=== PATIENT | male | born 1995 | race Caucasian/White ===

== ENCOUNTER 2019-02-27 04:17 | Inpatient (IN) | payer OTHER ==
[~2019-02-27] VITALS: Ht 175.3 cm; Wt 62.6 kg
[2019-02-27] VITALS (19 sets, daily range): BP systolic 103–132; BP diastolic 50–70
--- NOTE | 2019-02-27 06:00 | NUR ---
Patient admitted on vent from [facility]. Pt is sedated on Propofol and Versed. Gets agitated with sedation even temporarily held. ETT and OGT placement changed from report given by [facility] ED RN. KUB and CXR ordered to verify placement.
--- NOTE | 2019-02-27 06:15 | NUR ---
Pt has a red diffuse rash on chest which says has gotten worse over last couple of days. Patient was bitten by a deer tick about 1 month ago and was red and itched in right axilla. She states patient has lost approximately 15 pounds in the last 3-4 weeks.
--- NOTE | 2019-02-27 06:59 | RAD ---
Chest AP portable at 0633: Reason for examination: Endotracheal tube placement. Endotracheal tube is present with the tip located 5.4 cm above the jeremias. NG tube is present with the tip below the hemidiaphragms but not present on the imaged. The heart size is normal. Mediastinum is unremarkable. Lung pelaez are clear. No acute bony abnormalities are seen. Impression: Endotracheal tube and NG tube appear to be in satisfactory position. No acute cardiopulmonary disease. Abdomen AP portable: NG tube is present with the tip below the hemidiaphragms but the side-port is at the level of the esophagogastric junction. The liver appears to be enlarged at 21 cm. Psoas muscles are symmetric. Bowel gas pattern is nonspecific with no evidence of obstruction. No abnormal calcifications are seen. No acute bony abnormalities are evident. IMPRESSION: NG tube tip in the stomach but the side port is at the level of the EG junction and should be advanced into the stomach. Nonspecific nonobstructive bowel gas pattern. Hepatomegaly. Electronically signed by: Phyllis Arreola MD (02/27/2019 6:56 AM) [facility]
--- NOTE | 2019-02-27 07:15 | NUR ---
Talked with Dr. Hassan. Admission orders received. Family at bedside now.
[2019-02-27] MEDS ORDERED: PROPOFOL 100 ML IV ONE (07:28)
[2019-02-27] MEDS ORDERED: NOREPINEPHRIN 8MG/250ML PREMIX 250 ML IV PRN (07:30)
[2019-02-27] MEDS: IV NORMAL SALINE 1000ML BAG 1,000 ML IV SCH ×3 (08:00→09:36)
[2019-02-27] MEDS ORDERED: PIPERACILLIN/TAZOBACTAM 3.375 GM in IV NORMAL SALINE 50ML 50 ML IV SCH (08:00)
--- NOTE | 2019-02-27 08:11 | NUR ---
SS following for discharge planning. SS reviewed pt chart. Pt is from home and is currently on the vent. No discharge needs noted at this time. SS will continue to follow for discharge planning.
--- NOTE | 2019-02-27 08:14 | PDOC1 ---
History and Physical Date of Admission Date of Admission DATE: 02/27/19 TIME: 08:12 Identification/Chief Complaint Chief Complaint Acute encephalopathy Source Source: Caregiver, Chart review, Patient History of Present Illness History of Present Illness Mr Hodgson is a 23yo M w/ PMHx opioid dependence in partial remission on suboxone therapy, Hepatitis C who presented to [place] emergency department with acute altered mental status. According to the patient's girlfriend and her father, or the primary historians, the patient has been complaining of some dental pain on and off for the past several weeks. He finally went to see a physician on Saturday and was prescribed Augmentin. He began taking the medicine, but he had increasing episodes of vomiting over the past few days, had been complaining of a headache on and off, and had some periods of confusion and altered mental status which became more frequent and intense over the past few days. His girlfriend on further ROS notes he did not take his suboxone yesterday morning and around 5pm started acting strangely when he disappeared with his brother and came back while shopping for children's clothes. The patient did have an increasing episode of confusion earlier this evening at 10pm and had a brief period of time when his left hand seemed to go numb, and developed some spasming. He went home and went to bed with his girlfriend, and his girlfriend states that he awakened around 2am he awoke with seizure like activity, was banging on the bed and calling her name and appeared very altered with nystagmus of his right eye only. EMS was called and transported the patient to the emergency department. Upon arrival he was combative and disoriented, he has pulled out in EMS placed IV, and an initial IV placed in the emergency department was also pulled out by the patient's combativeness. He required rapid sequence intubation with succinylcholine and etomidate upon arrival just facilitate care after IV access was able to be obtained. There was some blood noted around the patient's mouth, and in the oropharynx, of unknown source, there was no clear source visualized. There was also a scattered petechial rash on the patient's chest and upper neck, the patient's girlfriend states it has been there for about 2 weeks. He did not have any meningismus upon arrival but felt warm to the touch. Rectal temperature was 100.8F, WBC 14.2, lactate 4.9, tachycardic. He underwent LP after intubation with CSF WBCs 315 with 82% Monocytes ABG was 7.33/51/125 and UDS was positive for opioids and benzos, family states he is on suboxone, however, buprenorphine specifically does not test positive for opioids on standard UDS. Past Medical History Cardiovascular: No pertinent hx Pulmonary: No pertinent hx GI: No pertinent hx Heme/Onc: No pertinent hx Hepatobiliary: No pertinent hx Psych: Addictions Rheumatologic: No pertinent hx Infectious disease: No pertinent hx ENT: No pertinent hx Renal/: No pertinent hx Endocrine: No pertinent hx Dermatology: No pertinent hx Past Surgical History Past Surgical History: No pertinent history Family History Family History: Coronary Artery Disease, Drug Abuse, Hypertension Social History Smoke: <1 pack per day ALCOHOL: rare Drugs: Marijuana, Heroin Current Medications Current Medications Current Medications Propofol 100 ml @ As Directed STK-MED ONCE IV ; Start 02/27/19 at 07:28; Stop 02/27/19 at 07:29; Status DC Midazolam HCl 100 ml @ 5 mls/hr CONT PRN IV SEE I/O RECORD; Start 02/27/19 at 07:30 Propofol 100 ml @ 0 mls/hr CONT PRN IV SEE I/O RECORD; Start 02/27/19 at 07:30 Doxycycline Hyclate 100 mg/ Dextrose 100 ml @ 50 mls/hr Q12HR IV ; Start 02/27/19 at 09:00 Piperacillin Sod/ Tazobactam Sod 3.375 gm/Sodium Chloride 50 ml @ 100 mls/hr Q6HRS IV ; Start 02/27/19 at 08:00 Sodium Chloride 1,000 ml @ 2,130 mls/hr Q29M IV Last administered on 02/27/19at 08:00; Start 02/27/19 at 07:24; Stop 02/27/19 at 08:24 Norepinephrine Bitartrate 250 ml @ 0 mls/hr CONT PRN IV SEE I/O RECORD; Start 02/27/19 at 07:30 Allergies Allergies: Coded Allergies: No Known Drug Allergies (Unverified , 02/27/19) ROS Review of System Unable to obtain 11 point ROS due to intubated status Physical Exam General: Other (Sedated on vent) HEENT: Atraumatic, PERRLA, Mucous membr. moist/pink Lungs: Other (Coarse rhonchi bilaterally) Heart: S1S2, RRR Abdomen: Normal bowel sounds, Soft, No tenderness, No hepatosplenomegaly, No masses Rectal Exam: not examined Extremities: No clubbing, No cyanosis, No edema, Normal pulses, No tenderness/swelling Skin: Other (Diffuse petechial rash on chest, multiple scars on both arms) Psych/Mental Status: Other (Sedated) Vitals Vitals Vital Signs Date Time Temp Pulse Resp B/P (MAP) Pulse Ox O2 Delivery O2 Flow Rate FiO2 02/27/19 07:55 100 Ventilator 02/27/19 06:45 65 14 125/60 (81) 02/27/19 06:00 99.6 99.6 Labs Labs Laboratory Tests Test 02/27/19 07:30 Lactic Acid Level 1.1 mmol/L (0.4-2.0) Laboratory Tests Test 02/27/19 07:30 Lactic Acid Level 1.1 mmol/L (0.4-2.0) VTE Prophylaxis Ordered VTE Prophylaxis Devices: No VTE Pharmacological Prophylaxi: Yes Assessment/Plan Assessment/Plan A/P: Acute encephalopathy - multifactorial with sepsis, WBC in CSF (monocyte predominant), hypercapnea Hypercapnic respiratory failure - s/p intubation. Will consult pulmonology. Likely this was multifactorial from opioid OD Severe sepsis - with concern for meningitis, will cover broadly and consult ID. F/u blood cultures, LP Opioid use disorder - in partial remission. Unlikely he was actually taking his suboxone yesterday as his opioids were positive Hep C - likely from IVDA. unknown viral titer. ID consulted Lactic acidosis - from severe sepsis. Hydration Hypokalemia - will replace, monitor Hyperglycemia - likely from sepsis, no DM history, will monitor Petechial rash - could be secondary to sepsis or 2/2 Hep C FEN - NPO, can consider OGT feeds PPX - will start lovenox 24 hours after LP FULL CODE ICU for critically ill septic patient 49 minutes CC time DUNG RUSSELL MD Feb 27, 2019 08:14
[2019-02-27 08:18] LABS: BASE EXCESS ABG -3 mmol/L (-3-3); HCO3 ABG 21 mmol/L (21-28); PCO2 ABG 36 mmHg (35-46); PO2 ABG 155 mmHg (85-108); SAT O2 ABG 98 % (92-99)
[2019-02-27 08:22] LABS: FIO2 ABG 40
[2019-02-27] MEDS ORDERED: VANCOMYCIN 1.5 GM in IV NORMAL SALINE 500ML BAG 500 ML IV SCH (08:30)
--- NOTE | 2019-02-27 08:38 | RAD ---
Portable abdomen, 02/27/2019: HISTORY: Check gastric tube placement A supine view of the upper abdomen demonstrates an NG tube extending into the proximal aspect of the stomach. The abdominal gas pattern is unremarkable. The visualized lung bases are clear. IMPRESSION: The NG tube extends into the proximal body of the stomach. Electronically signed by: Farrukh Juarez MD (02/27/2019 8:36 AM) [facility]
[2019-02-27] MEDS ORDERED: DOXYCYCLINE HYCLATE 100 MG in IV DEXTROSE 5% 100ML 100 ML IV SCH (09:00)
[2019-02-27] MEDS ORDERED: cefTRIAXone IV Push 2 GM VIAL. IVP SCH ×2 (09:00→21:00)
[2019-02-27] MEDS ORDERED: cefTRIAXone IV Push 1 GM VIAL. IVP ONE (09:00)
[2019-02-27] MEDS ORDERED: VANCOMYCIN 750 MG in IV NORMAL SALINE 250ML 250 ML IV ONE (09:30)
--- NOTE | 2019-02-27 09:34 | PDOC ---
PULMONARY PROGRESS NOTES Vitals Vital Signs Date Time Temp Pulse Resp B/P (MAP) Pulse Ox O2 Delivery O2 Flow Rate FiO2 02/27/19 09:16 100 Ventilator 02/27/19 06:45 65 14 125/60 (81) 02/27/19 06:00 99.6 99.6 Labs Laboratory Tests Test 02/27/19 07:30 02/27/19 08:10 Lactic Acid Level 1.1 mmol/L (0.4-2.0) Procalcitonin < 0.10 ng/mL (0.00-0.10) O2 Saturation 98 % (92-99) Arterial Blood pH 7.39 (7.35-7.45) Arterial Blood pCO2 at Patient Temp 36 mmHg (35-46) Arterial Blood pO2 at Patient Temp 155 mmHg (85-108) Arterial Blood HCO3 21 mmol/L (21-28) Arterial Blood Base Excess -3 mmol/L (-3-3) FiO2 40 Laboratory Tests Test 02/27/19 07:30 02/27/19 08:10 Lactic Acid Level 1.1 mmol/L (0.4-2.0) Procalcitonin < 0.10 ng/mL (0.00-0.10) O2 Saturation 98 % (92-99) Arterial Blood pH 7.39 (7.35-7.45) Arterial Blood pCO2 at Patient Temp 36 mmHg (35-46) Arterial Blood pO2 at Patient Temp 155 mmHg (85-108) Arterial Blood HCO3 21 mmol/L (21-28) Arterial Blood Base Excess -3 mmol/L (-3-3) FiO2 40 Impression . FULL NOTE DICTATED THANKS RESP FAILURE ENCEPHALITIS/ MENINGITIS VIRAL ROXANN LUBIN MD Feb 27, 2019 09:34
--- NOTE | 2019-02-27 09:42 | PDOC ---
Infectious Disease Note Vital Sign Vital Signs Vital Signs Date Time Temp Pulse Resp B/P (MAP) Pulse Ox O2 Delivery O2 Flow Rate FiO2 02/27/19 09:16 100 Ventilator 02/27/19 06:45 65 14 125/60 (81) 02/27/19 06:00 99.6 99.6 Labs Lab Laboratory Tests Test 02/27/19 07:30 02/27/19 08:10 Lactic Acid Level 1.1 mmol/L (0.4-2.0) Procalcitonin < 0.10 ng/mL (0.00-0.10) O2 Saturation 98 % (92-99) Arterial Blood pH 7.39 (7.35-7.45) Arterial Blood pCO2 at Patient Temp 36 mmHg (35-46) Arterial Blood pO2 at Patient Temp 155 mmHg (85-108) Arterial Blood HCO3 21 mmol/L (21-28) Arterial Blood Base Excess -3 mmol/L (-3-3) FiO2 40 Objective Assessment Aseptic meningitis Encephalopathy Seizure Respiratory failure Rash Drug use Plan Plan of Care Acyclovir supportive care HSV PCR Likely need MRI d/w d/w Dr Bacon d/w PATRICK Dumont MD Feb 27, 2019 09:41
[2019-02-27 09:43] LABS: BASO % 0 % (0-3); EOS % 0 % (0-3); HEMATOCRIT 35.6 % (39.0-53.0); LYMPH # 2.4 x10^3/uL (1.0-4.8); LYMPH % 19 % (24-48); MEAN CORPUSCULAR HEMOGLOBIN 30 pg (25-35); MEAN CORPUSCULAR HGB CONC 34 g/dL (31-37); MEAN CORPUSCULAR VOLUME 87 fL (79-100); MONO # 1.3 x10^3/uL (0.0-1.1); MONO % 11 % (0-9); NEUT # 8.7 x10^3uL (1.8-7.7); NEUT % 70 % (31-73); PLATELET COUNT 240 x10^3/uL (140-400); RED BLOOD COUNT 4.08 x10^6/uL (4.30-5.70); RED CELL DISTRIBUTION WIDTH 13.5 % (11.5-14.5); WHITE BLOOD COUNT 12.4 x10^3/uL (4.0-11.0)
[2019-02-27 10:04] LABS: ALBUMIN 2.9 g/dL (3.4-5.0); CALCIUM 8.1 mg/dL (8.5-10.1); CREATININE 0.7 mg/dL (0.7-1.3); GFR 138.6; POTASSIUM 3.6 mmol/L (3.5-5.1); TOTAL BILIRUBIN 0.4 mg/dL (0.2-1.0); TOTAL PROTEIN 5.9 g/dL (6.4-8.2)
[2019-02-27] MEDS: VANCOMYCIN PER PHARMACY MC PRN (10:20)
--- NOTE | 2019-02-27 10:21 | NUR ---
Pharmacy Vancomycin Dosing Note S:Consulted to monitor and dose vancomycin started 02/27/19. O:BERE ABEL is a 23 year old M with meningitis. Height: 5 feet, 9 inches Weight: 64.9 kg Dosing Weight: Actual Other Antibiotics: ROCEPHIN 2G IV Q12HRS ACYCLOVIR 10 MG/KG Q8HRS LABS: Last BUN: 9 Last Creatinine: 0.7 Creatinine Clearance: > 100 mL/min Last WBC: 12.4 Tmax (past 24 hours): 99.6 Microbiology: BLOOD CX (02/27) [facility]: PENDING CSF CX (02/27) [facility]: PENDING A: Patient requires vancomycin for possible meningitis, goal trough 15-20 mcg/ml. Patient's SCr is 0.7 with an eCrCl of > 100 ml/min. Initiate the following: P: 1. Initiate Vancomycin 1750 mg IV x 1 dose, then 1000 mg IV q8h 2. Follow up Trough level on 02/28/19 at 0830 3. Pharmacy will continue to monitor, follow and adjust therapy as needed. ZACHARY MORRIS [facility], 02/27/19 1025
[2019-02-27] MEDS ORDERED: ONDANSETRON PF 4 MG/2 ML VIAL. IV PRN (11:00)
[2019-02-27] MEDS: ACYCLOVIR SODIUM IV SCH ×3 (11:22→21:17)
[2019-02-27] MEDS: DEXTROSE 5% IV SCH ×3 (11:22→21:17)
[2019-02-27] MEDS: AMINO AC 3%/ELECTROLYTE/GLYCER 1,000 ML IV SCH (12:55)
[2019-02-27] MEDS: PROPOFOL 100 ML IV PRN ×3 (12:59→21:29)
[2019-02-27] MEDS ORDERED: LANSOPRAZOLE 30 MG TAB.RAP.DR FT ONE (13:45)
--- NOTE | 2019-02-27 14:18 | NUR ---
Patient having hemoptysis from OG tube. Dr Bacon paged and received orders to give 1x dose of Prevacid. Will continue to monitor.
[2019-02-27] MEDS ORDERED: ACETAMINOPHEN 500 MG TABLET PO PRN (15:45)
[2019-02-27] MEDS: VANCOMYCIN 1 GM in IV NORMAL SALINE 250ML 250 ML IV SCH (16:47)
[2019-02-27] MEDS: MIDAZOLAM 100mg/100ml NS BAG 100 ML IV PRN (16:49)
--- NOTE | 2019-02-27 19:04 | CONS ---
DATE OF CONSULTATION: 02/27/2019 ATTENDING PHYSICIAN: Dr. Bacon. REASON FOR CONSULTATION: The patient seen in pulmonary consultation at the request of Dr. Bacon for vent management. HISTORY OF PRESENT ILLNESS: The patient is a 23-year-old male with a history of opiate dependent. He was currently being treated with Suboxone therapy, also has a history of hepatitis C. He presented to the Emergency Room at [facility] with altered mental status. He was eventually intubated and transferred to [facility]. The patient has a history of previous hep C. He has had a rash over his chest for quite some time. He actually underwent an LP at [facility] after intubation. Initially, he had a temperature of 100.8, his white count was 14,000. His CSF fluid revealed wbc of 315 with 82% neutrophils, actually PMC. He had an initial blood gas revealing a pH of 7.33, PaCO2 of 51, pO2 of 125. His urine drug screen was positive for opiates and benzos. He is currently sedated on mechanical ventilation. His latest arterial blood gas revealed a pH of 7.39, PaCO2 of 36, pO2 of 155. I reviewed his chest x-ray, which revealed proper position of endotracheal tube and there was no significant consolidation or infiltrates, both lung pelaez were clear. PAST MEDICAL HISTORY: Obtained by reviewing the current documentation. He has a history of hepatitis C, opiate dependent on Suboxone therapy. Otherwise, there are no family members at the bedside. There is no history of cardiovascular pathology. He does have a history of previous COPD. He has had some nausea and vomiting in the past. PAST SURGICAL HISTORY: He has had left arm fracture as a young child. PSYCHIATRIC HISTORY: He does have some psychological disorders including panic, depression and anxiety. REVIEW OF SYSTEMS: Unobtainable secondary to the patient's condition. SOCIAL HISTORY: The patient apparently smokes cigarettes. CURRENT MEDICATIONS: List was reviewed. ALLERGIES: No known drug allergies listed. PHYSICAL EXAMINATION: GENERAL: The patient was intubated. VITAL SIGNS: His T-max was 99.6. Hemodynamically, he has been stable. HEENT: Eyes, the sclerae were nonicteric. NECK: Jugular venous distention was not elevated. No lymphadenopathy. CHEST: Full expansion. Evidence of petechiae all over his chest and most of his body. LUNGS: Anteriorly were clear. CARDIOVASCULAR: Regular rate and rhythm with S1, S2, no S3. ABDOMEN: Soft, nontender, nondistended. EXTREMITIES: No clubbing, cyanosis or edema. NEUROLOGIC: The patient is sedated. LABORATORY DATA: Reviewed as indicated above. Lactic acid repeat was 1.1. Procalcitonin was less than 0.1. LP results as indicated above. Chest x-ray as indicated above. IMPRESSION: 1. Acute hypoxemic respiratory failure, multifactorial. 2. Opiate dependent, presents with toxic metabolic encephalopathy. 3. Toxic metabolic encephalopathy. 4. Positive lumbar puncture compatible with viral meningitis/encephalitis, Infectious Disease consulted. 5. History of depression and anxiety. 6. Chronic obstructive pulmonary disease. 7. Tobacco dependence. PLAN: 1. We will continue current support with assist control ventilation. Continue current minute ventilation. 2. Antibiotics per Infectious Disease service. 3. Initiate nutritional support per NG tube. 4. DVT and GI prophylaxis. 5. Follow other consultants' input. I do appreciate the privilege in sharing in the patient's care. Total cumulative critical care time of 40 minutes. ROXANN LUBIN MD DR: HOWIE/jory JOB#: [id number] / [id number]
[2019-02-27] MEDS: FAMOTIDINE 20 MG/2 ML VIAL IVP SCH (21:16)
[2019-02-27] MEDS: cefTRIAXone IV Push 2 GM VIAL. IVP SCH (21:17)
[2019-02-28] VITALS (24 sets, daily range): BP systolic 112–135; BP diastolic 49–73
[2019-02-28] MEDS: VANCOMYCIN 1 GM in IV NORMAL SALINE 250ML 250 ML IV SCH ×2 (00:42→09:00)
[2019-02-28] MEDS: AMINO AC 3%/ELECTROLYTE/GLYCER 1,000 ML IV SCH ×2 (01:21→12:00)
[2019-02-28] MEDS: PROPOFOL 100 ML IV PRN ×3 (03:30→19:34)
--- NOTE | 2019-02-28 05:40 | CONS ---
DATE OF CONSULTATION: 02/27/2019 REQUESTING PHYSICIAN: Dr. Bacon. REASON FOR CONSULTATION: Abnormal CSF. HISTORY OF PRESENT ILLNESS: This is a 23-year-old gentleman who has IV drug use problem. The patient is in partial remission. The patient is on Suboxone therapy and evidently he skipped a dose and used drug ____. The patient was then found unresponsive and having seizure, hence [facility] was called and the patient was taken to the [facility] and then from there to here. Currently, the patient is orally intubated on a ventilator. Information was obtained through chart review, discussing with the patient's or significant other and other doctors. According to the girlfriend or significant other, the patient has been sick for about 2 weeks or so, initially started with headache, some nausea, not feeling well. The patient also then had a toothache, so he was seen by provider and the patient was prescribed Augmentin. The patient is taking ibuprofen for the pain and in fact he broke out an rash in upper torso and the face before the Augmentin and he was given some medication for the rash that he does not remember the name. The patient had skipped a dose of Suboxone and went out with the brother and then he came back and he was acting weird. According to the girlfriend, he is not able to even recognize or say the name of their son and then at times, he was behaving normal with the girlfriend's father and in fact before then, he had vomited blood and subsequently then he started having seizure and became unresponsive. The patient was taken to the [facility] ER where he had a CAT scan of the head done, which was negative and had an LP done, which showed 318 WBC, 62 glucose, 164 protein and 50 RBC. The patient did have lactic acid of 4.9, which quickly cleared. The patient did have fever. The patient has received vancomycin, Rocephin and doxycycline and now consult has been requested. According to the girlfriend, there is no outdoor activity. The patient is a welder metal fab and as far as she knows that he is off the drugs, heroin that he used to do for a while. PAST MEDICAL HISTORY: Other than drug use, he had been healthy. SOCIAL HISTORY: Positive for IV drug use, heroin at least in the past, but never had seizure in the past. He does smoke, but does not use alcohol. ALLERGIES: No known drug allergies. CURRENT MEDICATIONS: Reviewed. REVIEW OF SYSTEMS: As per HPI through the girlfriend and the nurse. The patient is not able to provide any information. There is no nausea, vomiting, diarrhea noted here. PHYSICAL EXAMINATION: GENERAL: Orally intubated, sedated gentleman, not in distress. VITAL SIGNS: Temperature 99.6, pulse 65, respirations 14, blood pressure 125/60. HEENT: Both pupils are round and reacting. No conjunctival lesion. Mouth: Much cannot be visualized. NECK: Supple, no JVP, no lymphadenopathy. LUNGS: Clear. HEART: S1, S2 regular. ABDOMEN: Benign. EXTREMITIES: No edema or cyanosis. SKIN: The patient does have a nonblanching fine rash on the upper torso and face. NEUROLOGIC: The patient does move all the extremities, although currently sedated on a ventilator. LABORATORY DATA: His BUN and creatinine were normal. White count was high at [facility]. Lactic acid was 4.9 and the CSF as I mentioned in the HPI. IMPRESSION: 1. 1. Aseptic meningitis. This could be from even as simple as from ibuprofen, but this could be viral meningitis like enterovirus. Definitely, herpes needs to be ruled out with his change in mental status. 2. 2. New onset seizure secondary to drug withdrawal or use of drugs, on Suboxone, it is hard to say. 3. 3. History of IV drug use. 4. 4. Encephalopathy. 5. 5. Lactic acid is secondary to the seizure, less likely to be septic. 6. Rash. This rash could be a drug rash, but more so even parvo B19 is a distant possibility. RECOMMENDATIONS: 1. 1. Supportive care. 2. 2. IV acyclovir. 3. 3. HSV PCR in the CSF. I called the lab for them to add it. Continue Rocephin and vancomycin for maybe another day or two until we have more information and the patient stabilizes. The patient is going to likely need MRI of the head. Discussion with Dr. Bacon done. Discussion with Dr. Villaseñor done. Thank you very much, Dr. Bacon, for giving me the opportunity to participate in this patient's care. PATRICK WALKER MD DR: MAURIZIO/jory JOB#: [id number] / [id number]
[2019-02-28] MEDS: ACYCLOVIR SODIUM IV SCH (06:00)
[2019-02-28] MEDS: DEXTROSE 5% IV SCH (06:00)
--- NOTE | 2019-02-28 06:20 | PDOC ---
PULMONARY PROGRESS NOTES Subjective on vent, sedated, on propofol, versed, small ett Vitals Vital Signs Date Time Temp Pulse Resp B/P (MAP) Pulse Ox O2 Delivery O2 Flow Rate FiO2 02/28/19 06:00 53 14 122/60 (80) 97 Ventilator 02/28/19 04:00 98.9 98.9 Comments ros as mentioned as above discussed w rn, other sys otherwise neg sedated on vent HEENT: Other (nc at perrl nose clear orally intubated neck no lad no thyromegaly) Lungs: Crackles Cardiovascular: S1, S2 Abdomen: Soft, Non-tender, Other (no mass) Extremities: No Edema Skin: Warm Labs Laboratory Tests Test 02/27/19 05:00 02/27/19 07:30 02/27/19 08:10 Nasal Screen MRSA (PCR) Negative (Negative) White Blood Count 12.4 x10^3/uL (4.0-11.0) Red Blood Count 4.08 x10^6/uL (4.30-5.70) Hemoglobin 12.0 g/dL (13.0-17.5) Hematocrit 35.6 % (39.0-53.0) Mean Corpuscular Volume 87 fL (79-100) Mean Corpuscular Hemoglobin 30 pg (25-35) Mean Corpuscular Hemoglobin Concent 34 g/dL (31-37) Red Cell Distribution Width 13.5 % (11.5-14.5) Platelet Count 240 x10^3/uL (140-400) Neutrophils (%) (Auto) 70 % (31-73) Lymphocytes (%) (Auto) 19 % (24-48) Monocytes (%) (Auto) 11 % (0-9) Eosinophils (%) (Auto) 0 % (0-3) Basophils (%) (Auto) 0 % (0-3) Neutrophils # (Auto) 8.7 x10^3uL (1.8-7.7) Lymphocytes # (Auto) 2.4 x10^3/uL (1.0-4.8) Monocytes # (Auto) 1.3 x10^3/uL (0.0-1.1) Eosinophils # (Auto) 0.0 x10^3/uL (0.0-0.7) Basophils # (Auto) 0.0 x10^3/uL (0.0-0.2) Sodium Level 141 mmol/L (136-145) Potassium Level 3.6 mmol/L (3.5-5.1) Chloride Level 106 mmol/L (98-107) Carbon Dioxide Level 24 mmol/L (21-32) Anion Gap 11 (6-14) Blood Urea Nitrogen 9 mg/dL (8-26) Creatinine 0.7 mg/dL (0.7-1.3) Estimated GFR (Cockcroft-Gault) 138.6 BUN/Creatinine Ratio 13 (6-20) Glucose Level 103 mg/dL (70-99) Lactic Acid Level 1.1 mmol/L (0.4-2.0) Calcium Level 8.1 mg/dL (8.5-10.1) Total Bilirubin 0.4 mg/dL (0.2-1.0) Aspartate Amino Transf (AST/SGOT) 26 U/L (15-37) Alanine Aminotransferase (ALT/SGPT) 21 U/L (16-63) Alkaline Phosphatase 63 U/L (46-116) Total Protein 5.9 g/dL (6.4-8.2) Albumin 2.9 g/dL (3.4-5.0) Albumin/Globulin Ratio 1.0 (1.0-1.7) Procalcitonin < 0.10 ng/mL (0.00-0.10) O2 Saturation 98 % (92-99) Arterial Blood pH 7.39 (7.35-7.45) Arterial Blood pCO2 at Patient Temp 36 mmHg (35-46) Arterial Blood pO2 at Patient Temp 155 mmHg (85-108) Arterial Blood HCO3 21 mmol/L (21-28) Arterial Blood Base Excess -3 mmol/L (-3-3) FiO2 40 Laboratory Tests Test 02/27/19 07:30 02/27/19 08:10 White Blood Count 12.4 x10^3/uL (4.0-11.0) Red Blood Count 4.08 x10^6/uL (4.30-5.70) Hemoglobin 12.0 g/dL (13.0-17.5) Hematocrit 35.6 % (39.0-53.0) Mean Corpuscular Volume 87 fL (79-100) Mean Corpuscular Hemoglobin 30 pg (25-35) Mean Corpuscular Hemoglobin Concent 34 g/dL (31-37) Red Cell Distribution Width 13.5 % (11.5-14.5) Platelet Count 240 x10^3/uL (140-400) Neutrophils (%) (Auto) 70 % (31-73) Lymphocytes (%) (Auto) 19 % (24-48) Monocytes (%) (Auto) 11 % (0-9) Eosinophils (%) (Auto) 0 % (0-3) Basophils (%) (Auto) 0 % (0-3) Neutrophils # (Auto) 8.7 x10^3uL (1.8-7.7) Lymphocytes # (Auto) 2.4 x10^3/uL (1.0-4.8) Monocytes # (Auto) 1.3 x10^3/uL (0.0-1.1) Eosinophils # (Auto) 0.0 x10^3/uL (0.0-0.7) Basophils # (Auto) 0.0 x10^3/uL (0.0-0.2) Sodium Level 141 mmol/L (136-145) Potassium Level 3.6 mmol/L (3.5-5.1) Chloride Level 106 mmol/L (98-107) Carbon Dioxide Level 24 mmol/L (21-32) Anion Gap 11 (6-14) Blood Urea Nitrogen 9 mg/dL (8-26) Creatinine 0.7 mg/dL (0.7-1.3) Estimated GFR (Cockcroft-Gault) 138.6 BUN/Creatinine Ratio 13 (6-20) Glucose Level 103 mg/dL (70-99) Lactic Acid Level 1.1 mmol/L (0.4-2.0) Calcium Level 8.1 mg/dL (8.5-10.1) Total Bilirubin 0.4 mg/dL (0.2-1.0) Aspartate Amino Transf (AST/SGOT) 26 U/L (15-37) Alanine Aminotransferase (ALT/SGPT) 21 U/L (16-63) Alkaline Phosphatase 63 U/L (46-116) Total Protein 5.9 g/dL (6.4-8.2) Albumin 2.9 g/dL (3.4-5.0) Albumin/Globulin Ratio 1.0 (1.0-1.7) Procalcitonin < 0.10 ng/mL (0.00-0.10) O2 Saturation 98 % (92-99) Arterial Blood pH 7.39 (7.35-7.45) Arterial Blood pCO2 at Patient Temp 36 mmHg (35-46) Arterial Blood pO2 at Patient Temp 155 mmHg (85-108) Arterial Blood HCO3 21 mmol/L (21-28) Arterial Blood Base Excess -3 mmol/L (-3-3) FiO2 40 Comments cxr reviewed, ett ok, mild l atelectasis Impression . IMPRESSION: 1. Acute hypoxemic respiratory failure, multifactorial. 2. Opiate dependent, presents with toxic metabolic encephalopathy. 3. Toxic metabolic encephalopathy. 4. Positive lumbar puncture compatible with aseptic,? viral meningitis/encephalitis, 5. History of depression and anxiety. 6. Chronic obstructive pulmonary disease. 7. Tobacco dependence. Plan . PLAN: 1. cont vent support, setting reviewed, sbt when alert 2. Antibiotics per Infectious Disease service. Vanc, Rocephin and Acyclovir HSV PCR pending 3. Initiate nutritional support per NG tube. 4. DVT and GI prophylaxis. 5. Follow other consultants' input. discussed w RAFI Roy MD Feb 28, 2019 06:20
[2019-02-28 07:55] LABS: BASE EXCESS ABG 2 mmol/L (-3-3); HCO3 ABG 26 mmol/L (21-28); PCO2 ABG 39 mmHg (35-46); PO2 ABG 63 mmHg (85-108); SAT O2 ABG 93 % (92-99)
[2019-02-28 08:13] LABS: FIO2 ABG 40
[2019-02-28] MEDS ORDERED: IV NORMAL SALINE 500ML BAG 500 ML IV PRN (08:30)
[2019-02-28] MEDS ORDERED: ATROPINE 0.5 MG/5 ML DISP.SYRINGE. IV PRN (08:30)
[2019-02-28] MEDS ORDERED: DEXMEDETOMIDINE 200 MCG in IV NORMAL SALINE 50ML 48 ML IV PRN (08:30)
[2019-02-28 08:55] LABS: BASO # 0.1 x10^3/uL (0.0-0.2); BASO % 1 % (0-3); EOS % 0 % (0-3); HEMATOCRIT 37.9 % (39.0-53.0); HEMOGLOBIN 13.1 g/dL (13.0-17.5); LYMPH # 1.7 x10^3/uL (1.0-4.8); LYMPH % 19 % (24-48); MEAN CORPUSCULAR HEMOGLOBIN 30 pg (25-35); MEAN CORPUSCULAR HGB CONC 35 g/dL (31-37); MEAN CORPUSCULAR VOLUME 87 fL (79-100); MONO # 1.1 x10^3/uL (0.0-1.1); MONO % 13 % (0-9); NEUT % 67 % (31-73); PLATELET COUNT 239 x10^3/uL (140-400); RED BLOOD COUNT 4.37 x10^6/uL (4.30-5.70); RED CELL DISTRIBUTION WIDTH 13.8 % (11.5-14.5)
--- NOTE | 2019-02-28 09:03 | PDOC ---
Infectious Disease Note Subjective Subjective Unresponsive/sedated Orally intubated, FiO2 35% and sating 98% Fever Tmax 101.0 last evening PPN ROS ROS unobtainable Vital Sign Vital Signs Vital Signs Date Time Temp Pulse Resp B/P (MAP) Pulse Ox O2 Delivery O2 Flow Rate FiO2 02/28/19 07:42 98 Ventilator 02/28/19 06:00 53 14 122/60 (80) 02/28/19 04:00 98.9 98.9 Physical Exam PHYSICAL EXAM GENERAL: Unresponsive, sedated and orally intubated, mitts on HEENT: Pupils equal, ETT and OGT NECK: Supple, no JVP, no lymphadenopathy. LUNGS: Clear. HEART: S1, S2 regular. ABDOMEN: BS active, soft, no guarding : Indwelling Mcintosh in place EXTREMITIES: No edema or cyanosis. SCDs in place SKIN: Nonblanching fine macular -type rash on the upper torso/neck and face. NEUROLOGIC: Unresponsive to verbal stimuli, moves some to touch PIVs Labs Lab Laboratory Tests Test 02/28/19 07:45 O2 Saturation 93 % (92-99) Arterial Blood pH 7.45 (7.35-7.45) Arterial Blood pCO2 at Patient Temp 39 mmHg (35-46) Arterial Blood pO2 at Patient Temp 63 mmHg (85-108) Arterial Blood HCO3 26 mmol/L (21-28) Arterial Blood Base Excess 2 mmol/L (-3-3) FiO2 40 Micro CSF: ([facility] 02/27) AEROBIC CULTURE PENDING AEROBIC RES 1 PENDING GRAM STAIN Final Final report GRAM STAIN RESULT 1 Final Comment No white blood cells seen. GRAM STAIN RESULT 2 Final Comment Moderate number of gram positive cocci. Objective Assessment Meningitis. - 02/27:: CSF WBC 318, glucose 62, T.protein 164 protein and RBC 50. GPC on gram stain; cultures pending Fever Leukocytosis - improving New onset seizure History of IV drug use. Acute encephalopathy., confused and disoriented prior to admission Lactic acid is secondary to the seizure, less likely to be septic. Rash involving upper torso/neck and face, fading per family members Plan Plan of Care Vanc and Rocephin D/c acyclovir Likely need MRI Procalcitonin <0.10 MRSA screen negative BC neg so far from [facility] Awaiting GPC ID/susceptibilities - had been on Augmentin so could be partially treated and skewing results of the CSF Monitor rash, improving per family members D/w nursing D/w Dr. Fernandez Attending Co-Sign Attending Co-Sign The patient was seen and interviewed as well as examined at the bedside. The chart was reviewed. The case was discussed. Agree with the plan of care. ADRIA RUIZ APRN Feb 28, 2019 09:03 KAMERON FERNANDEZ MD Feb 28, 2019 15:03
--- NOTE | 2019-02-28 09:05 | PDOC ---
PROGRESS NOTES Chief Complaint Chief Complaint A/P: Acute encephalopathy - multifactorial with sepsis, WBC in CSF, hypercapnea. Gram positive cocci on CSF, will cont vanco and zosyn Hypercapnic respiratory failure - s/p intubation. Will consult pulmonology. Likely this was multifactorial from opioid OD Severe sepsis - with concern for meningitis, initially with low WBC was more likely viral, however now with positive gram positive cocci in [employer], will cover broadly and consult ID. F/u blood cultures, LP Opioid use disorder - in partial remission. Unlikely he was actually taking his suboxone prior to admit as his opioids were positive. I would avoid any opioids and have asked his family to bring his suboxone strips in to administer 8/2mg BID for treatment Hep C - likely from IVDA. unknown viral titer. ID consulted Lactic acidosis - from severe sepsis. Hydration Hypokalemia - will replace, monitor Hyperglycemia - likely from sepsis, no DM history, will monitor Petechial rash - could be secondary to sepsis or 2/2 Hep C FEN - NPO, can consider OGT feeds PPX - will start lovenox 24 FULL CODE ICU for critically ill septic patient 49 minutes CC time History of Present Illness History of Present Illness Mr Hodgson is a 23yo M w/ PMHx opioid dependence in partial remission on suboxone therapy, Hepatitis C who presented to [facility] with acute altered mental status, fevers, rash, seizure like activity. He required rapid sequence intubation with succinylcholine and etomidate upon arrival just facilitate care after IV access was able to be obtained. There was some blood noted around the patient's mouth, and in the oropharynx, of unknown source, there was no clear source visualized. There was also a scattered petechial rash on the patient's chest and upper neck, the patient's girlfriend states it has been there for about 2 weeks. He did not have any meningismus upon arrival but felt warm to the touch. Rectal temperature was 100.8F, WBC 14.2, lactate 4.9, tachycardic. He underwent LP after intubation with CSF WBCs 315 with 82% Monocytes ABG was 7.33/51/125 and UDS was positive for opioids and benzos, family states he is on suboxone, however, buprenorphine specifically does not test positive for opioids on standard UDS. Overnight tolerated vent well. Gram positive cocci in CSF. UOP good. No fevers Vitals Vitals Vital Signs Date Time Temp Pulse Resp B/P (MAP) Pulse Ox O2 Delivery O2 Flow Rate FiO2 02/28/19 07:42 98 Ventilator 02/28/19 06:00 53 14 122/60 (80) 02/28/19 04:00 98.9 98.9 Physical Exam Physical Exam GENERAL: Unresponsive, sedated and orally intubated, mitts on HEENT: Pupils equal, ETT and OGT NECK: Supple, no JVP, no lymphadenopathy. LUNGS: Clear. HEART: S1, S2 regular. ABDOMEN: BS active, soft, no guarding : Indwelling Mcintosh in place EXTREMITIES: No edema or cyanosis. SCDs in place SKIN: Nonblanching fine macular -type rash on the upper torso and face. NEUROLOGIC: Unresponsive to verbal stimuli, moves some to touch PIVs General: Other (Sedated on vent) Abdomen: Normal bowel sounds, Soft, No tenderness, No hepatosplenomegaly, No masses Extremities: No clubbing, No cyanosis, No edema, Normal pulses, No tenderness/swelling Skin: Other (Diffuse petechial rash on chest, multiple scars on both arms) Labs LABS Laboratory Tests Test 02/28/19 07:45 02/28/19 08:40 O2 Saturation 93 % (92-99) Arterial Blood pH 7.45 (7.35-7.45) Arterial Blood pCO2 at Patient Temp 39 mmHg (35-46) Arterial Blood pO2 at Patient Temp 63 mmHg (85-108) Arterial Blood HCO3 26 mmol/L (21-28) Arterial Blood Base Excess 2 mmol/L (-3-3) FiO2 40 White Blood Count 9.0 x10^3/uL (4.0-11.0) Red Blood Count 4.37 x10^6/uL (4.30-5.70) Hemoglobin 13.1 g/dL (13.0-17.5) Hematocrit 37.9 % (39.0-53.0) Mean Corpuscular Volume 87 fL (79-100) Mean Corpuscular Hemoglobin 30 pg (25-35) Mean Corpuscular Hemoglobin Concent 35 g/dL (31-37) Red Cell Distribution Width 13.8 % (11.5-14.5) Platelet Count 239 x10^3/uL (140-400) Neutrophils (%) (Auto) 67 % (31-73) Lymphocytes (%) (Auto) 19 % (24-48) Monocytes (%) (Auto) 13 % (0-9) Eosinophils (%) (Auto) 0 % (0-3) Basophils (%) (Auto) 1 % (0-3) Neutrophils # (Auto) 6.0 x10^3uL (1.8-7.7) Lymphocytes # (Auto) 1.7 x10^3/uL (1.0-4.8) Monocytes # (Auto) 1.1 x10^3/uL (0.0-1.1) Eosinophils # (Auto) 0.0 x10^3/uL (0.0-0.7) Basophils # (Auto) 0.1 x10^3/uL (0.0-0.2) Comment Review of Relevant I have reviewed the following items kaye (where applicable) has been applied. Labs Laboratory Tests Test 02/27/19 05:00 02/27/19 07:30 02/27/19 08:10 02/28/19 07:45 Nasal Screen MRSA (PCR) Negative (Negative) White Blood Count 12.4 x10^3/uL (4.0-11.0) Red Blood Count 4.08 x10^6/uL (4.30-5.70) Hemoglobin 12.0 g/dL (13.0-17.5) Hematocrit 35.6 % (39.0-53.0) Mean Corpuscular Volume 87 fL (79-100) Mean Corpuscular Hemoglobin 30 pg (25-35) Mean Corpuscular Hemoglobin Concent 34 g/dL (31-37) Red Cell Distribution Width 13.5 % (11.5-14.5) Platelet Count 240 x10^3/uL (140-400) Neutrophils (%) (Auto) 70 % (31-73) Lymphocytes (%) (Auto) 19 % (24-48) Monocytes (%) (Auto) 11 % (0-9) Eosinophils (%) (Auto) 0 % (0-3) Basophils (%) (Auto) 0 % (0-3) Neutrophils # (Auto) 8.7 x10^3uL (1.8-7.7) Lymphocytes # (Auto) 2.4 x10^3/uL (1.0-4.8) Monocytes # (Auto) 1.3 x10^3/uL (0.0-1.1) Eosinophils # (Auto) 0.0 x10^3/uL (0.0-0.7) Basophils # (Auto) 0.0 x10^3/uL (0.0-0.2) Sodium Level 141 mmol/L (136-145) Potassium Level 3.6 mmol/L (3.5-5.1) Chloride Level 106 mmol/L (98-107) Carbon Dioxide Level 24 mmol/L (21-32) Anion Gap 11 (6-14) Blood Urea Nitrogen 9 mg/dL (8-26) Creatinine 0.7 mg/dL (0.7-1.3) Estimated GFR (Cockcroft-Gault) 138.6 BUN/Creatinine Ratio 13 (6-20) Glucose Level 103 mg/dL (70-99) Lactic Acid Level 1.1 mmol/L (0.4-2.0) Calcium Level 8.1 mg/dL (8.5-10.1) Total Bilirubin 0.4 mg/dL (0.2-1.0) Aspartate Amino Transf (AST/SGOT) 26 U/L (15-37) Alanine Aminotransferase (ALT/SGPT) 21 U/L (16-63) Alkaline Phosphatase 63 U/L (46-116) Total Protein 5.9 g/dL (6.4-8.2) Albumin 2.9 g/dL (3.4-5.0) Albumin/Globulin Ratio 1.0 (1.0-1.7) Procalcitonin < 0.10 ng/mL (0.00-0.10) O2 Saturation 98 % (92-99) 93 % (92-99) Arterial Blood pH 7.39 (7.35-7.45) 7.45 (7.35-7.45) Arterial Blood pCO2 at Patient Temp 36 mmHg (35-46) 39 mmHg (35-46) Arterial Blood pO2 at Patient Temp 155 mmHg (85-108) 63 mmHg (85-108) Arterial Blood HCO3 21 mmol/L (21-28) 26 mmol/L (21-28) Arterial Blood Base Excess -3 mmol/L (-3-3) 2 mmol/L (-3-3) FiO2 40 40 Test 6/15/19 08:40 White Blood Count 9.0 x10^3/uL (4.0-11.0) Red Blood Count 4.37 x10^6/uL (4.30-5.70) Hemoglobin 13.1 g/dL (13.0-17.5) Hematocrit 37.9 % (39.0-53.0) Mean Corpuscular Volume 87 fL (79-100) Mean Corpuscular Hemoglobin 30 pg (25-35) Mean Corpuscular Hemoglobin Concent 35 g/dL (31-37) Red Cell Distribution Width 13.8 % (11.5-14.5) Platelet Count 239 x10^3/uL (140-400) Neutrophils (%) (Auto) 67 % (31-73) Lymphocytes (%) (Auto) 19 % (24-48) Monocytes (%) (Auto) 13 % (0-9) Eosinophils (%) (Auto) 0 % (0-3) Basophils (%) (Auto) 1 % (0-3) Neutrophils # (Auto) 6.0 x10^3uL (1.8-7.7) Lymphocytes # (Auto) 1.7 x10^3/uL (1.0-4.8) Monocytes # (Auto) 1.1 x10^3/uL (0.0-1.1) Eosinophils # (Auto) 0.0 x10^3/uL (0.0-0.7) Basophils # (Auto) 0.1 x10^3/uL (0.0-0.2) Laboratory Tests Test 02/28/19 07:45 02/28/19 08:40 O2 Saturation 93 % (92-99) Arterial Blood pH 7.45 (7.35-7.45) Arterial Blood pCO2 at Patient Temp 39 mmHg (35-46) Arterial Blood pO2 at Patient Temp 63 mmHg (85-108) Arterial Blood HCO3 26 mmol/L (21-28) Arterial Blood Base Excess 2 mmol/L (-3-3) FiO2 40 White Blood Count 9.0 x10^3/uL (4.0-11.0) Red Blood Count 4.37 x10^6/uL (4.30-5.70) Hemoglobin 13.1 g/dL (13.0-17.5) Hematocrit 37.9 % (39.0-53.0) Mean Corpuscular Volume 87 fL (79-100) Mean Corpuscular Hemoglobin 30 pg (25-35) Mean Corpuscular Hemoglobin Concent 35 g/dL (31-37) Red Cell Distribution Width 13.8 % (11.5-14.5) Platelet Count 239 x10^3/uL (140-400) Neutrophils (%) (Auto) 67 % (31-73) Lymphocytes (%) (Auto) 19 % (24-48) Monocytes (%) (Auto) 13 % (0-9) Eosinophils (%) (Auto) 0 % (0-3) Basophils (%) (Auto) 1 % (0-3) Neutrophils # (Auto) 6.0 x10^3uL (1.8-7.7) Lymphocytes # (Auto) 1.7 x10^3/uL (1.0-4.8) Monocytes # (Auto) 1.1 x10^3/uL (0.0-1.1) Eosinophils # (Auto) 0.0 x10^3/uL (0.0-0.7) Basophils # (Auto) 0.1 x10^3/uL (0.0-0.2) Medications Current Medications Propofol 100 ml @ As Directed STK-MED ONCE IV ; Start 02/27/19 at 07:28; Stop 02/27/19 at 07:29; Status DC Midazolam HCl 100 ml @ 5 mls/hr CONT PRN IV SEE I/O RECORD Last administered on 02/27/19at 16:49; Start 02/27/19 at 07:30 Propofol 100 ml @ 0 mls/hr CONT PRN IV SEE I/O RECORD Last administered on 02/28/19at 07:31; Start 02/27/19 at 07:30 Doxycycline Hyclate 100 mg/ Dextrose 100 ml @ 50 mls/hr Q12HR IV ; Start 02/27/19 at 09:00; Stop 02/27/19 at 09:36; Status DC Piperacillin Sod/ Tazobactam Sod 3.375 gm/Sodium Chloride 50 ml @ 100 mls/hr Q6HRS IV ; Start 02/27/19 at 08:00; Stop 02/27/19 at 08:54; Status DC Sodium Chloride 1,000 ml @ 2,130 mls/hr Q29M IV Last administered on 02/27/19at 09:36; Start 02/27/19 at 07:24; Stop 02/27/19 at 08:24; Status DC Norepinephrine Bitartrate 250 ml @ 0 mls/hr CONT PRN IV SEE I/O RECORD; Start 02/27/19 at 07:30 Ceftriaxone Sodium (Rocephin) 2 gm Q24H IVP ; Start 02/27/19 at 09:00; Stop 02/27/19 at 09:00; Status DC Vancomycin HCl 1.5 gm/Sodium Chloride 500 ml @ 250 mls/hr Q12H IV ; Start 02/27/19 at 08:30; Stop 02/27/19 at 08:56; Status DC Ceftriaxone Sodium (Rocephin) 2 gm Q24H IVP ; Start 02/27/19 at 21:00; Stop 02/27/19 at 21:00; Status DC Vancomycin HCl (Vanco Per Pharmacy) 1 each PRN DAILY PRN MC SEE COMMENTS Last administered on 02/27/19at 10:20; Start 02/27/19 at 08:45 Vancomycin HCl 750 mg/Sodium Chloride 250 ml @ 250 mls/hr 1X ONCE IV Last administered on 02/27/19at 09:45; Start 02/27/19 at 09:30; Stop 02/27/19 at 10:29; Status DC Ceftriaxone Sodium (Rocephin) 1 gm 1X ONCE IVP Last administered on 02/27/19at 09:38; Start 02/27/19 at 09:00; Stop 02/27/19 at 09:01; Status DC Acyclovir Sodium 650 mg/Dextrose 113 ml @ 113 mls/hr Q8HRS IV Last administered on 02/28/19at 06:00; Start 02/27/19 at 10:00 Vancomycin HCl 1 gm/Sodium Chloride 250 ml @ 250 mls/hr Q8H IV Last administered on 02/28/19at 00:42; Start 02/27/19 at 17:00 Vancomycin HCl (Vancomycin Trough Level) 1 each 1X ONCE MC ; Start 02/28/19 at 08:30; Stop 02/28/19 at 08:31; Status DC Ondansetron HCl (Zofran) 4 mg PRN Q6HRS PRN IV NAUSEA/VOMITING; Start 02/27/19 at 11:00 Famotidine (Pepcid Vial) 20 mg BID IVP Last administered on 02/27/19at 21:16; Start 02/27/19 at 21:00 Amino Acids/ Glycerin/ Electrolytes 1,000 ml @ 80 mls/hr [id number] IV Last ad ministered on 02/28/19at 01:21; Start 02/27/19 at 11:00 Ceftriaxone Sodium (Rocephin) 2 gm Q12HR IVP Last administered on 02/27/19at 21:17; Start 02/27/19 at 21:00 Lansoprazole (Prevacid) 30 mg 1X ONCE FT Last administered on 02/27/19at 13:52; Start 02/27/19 at 13:45; Stop 02/27/19 at 13:46; Status DC Acetaminophen (Tylenol) 1,000 mg PRN Q6HRS PRN PO FEVER Last administered on at 15:40; Start 02/27/19 at 15:45 Fentanyl Citrate 30 ml @ 0 mls/hr CONT PRN IV SEE PROTOCOL; Start 02/28/19 at 06:30 Dexmedetomidine HCl 200 mcg/ Sodium Chloride 50 ml @ 0 mls/hr CONT PRN IV PER PROTOCOL; Start 02/28/19 at 08:30 Sodium Chloride 500 ml @ 500 mls/hr 1X PRN PRN IV SEE COMMENTS; Start 02/28/19 at 08:30 Atropine Sulfate (ATROPINE 0.5mg SYRINGE) 0.5 mg PRN Q5MIN PRN IV SEE COMMENTS; Start 02/28/19 at 08:30 Vitals/I & O Vital Sign - Last 24 Hours 02/27/19 02/27/19 02/27/19 02/27/19 09:16 10:00 11:00 12:00 Pulse 60 58 Resp 14 14 B/P (MAP) 119/59 (79) 113/55 (74) Pulse Ox 100 100 100 O2 Delivery Ventilator Ventilator Ventilator Mechanical Ventilator 02/27/19 02/27/19 02/27/19 02/27/19 12:00 12:12 13:00 13:43 Temp 99.3 99.3 Pulse 68 70 Resp 14 14 B/P (MAP) 103/54 (70) 118/58 (78) Pulse Ox 100 100 100 100 O2 Delivery Ventilator Ventilator Ventilator Ventilator 02/27/19 02/27/19 02/27/19 02/27/19 14:00 15:00 15:15 16:00 Temp 100.3 100.3 Pulse 74 74 71 Resp 14 14 14 B/P (MAP) 117/63 (81) 121/61 (81) 110/55 (73) Pulse Ox 100 100 100 100 O2 Delivery Ventilator Ventilator Ventilator Ventilator 02/27/19 02/27/19 02/27/19 02/27/19 16:00 17:00 17:29 18:26 Temp 98.4 98.4 Pulse 68 Resp 14 B/P (MAP) 104/50 (68) Pulse Ox 100 100 O2 Delivery Mechanical Ventilator Ventilator Ventilator 02/27/19 02/27/19 02/27/19 02/27/19 19:00 19:30 20:00 20:00 Temp 101.0 101.0 Pulse 73 80 Resp 14 14 B/P (MAP) 127/61 (83) 119/52 (74) Pulse Ox 100 100 98 O2 Delivery Ventilator Ventilator Mechanical Ventilator Ventilator 02/27/19 02/27/19 02/27/19 02/27/19 21:00 22:00 22:45 23:00 Temp 100.6 100.6 Pulse 77 83 79 Resp 14 14 14 B/P (MAP) 118/55 (76) 114/67 (83) 118/64 (82) Pulse Ox 99 99 99 99 O2 Delivery Ventilator Ventilator Ventilator Ventilator 02/27/19 02/28/19 02/28/19 02/28/19 23:59 00:00 01:00 01:20 Temp 99.0 99.0 Pulse 75 68 Resp 14 14 B/P (MAP) 135/67 (89) 130/61 (84) Pulse Ox 100 100 100 O2 Delivery Mechanical Ventilator Ventilator Ventilator Ventilator 02/28/19 02/28/19 02/28/19 02/28/19 02:00 03:00 03:30 04:00 Temp 98.9 98.9 Pulse 63 71 60 Resp 14 14 14 B/P (MAP) 131/66 (87) 134/68 (90) 129/64 (85) Pulse Ox 97 98 98 98 O2 Delivery Ventilator Ventilator Ventilator Ventilator 02/28/19 02/28/19 02/28/19 02/28/19 04:00 05:00 05:50 06:00 Pulse 67 53 Resp 14 14 B/P (MAP) 119/64 (82) 122/60 (80) Pulse Ox 98 98 97 O2 Delivery Mechanical Ventilator Ventilator Ventilator Ventilator 02/28/19 07:42 Pulse Ox 98 O2 Delivery Ventilator Intake and Output 02/27/19 02/27/19 02/28/19 14:59 22:59 06:59 Intake Total 2363 ml 903.19 ml 1417.27 ml Output Total 1105 ml 898 ml 1205 ml Balance 1258 ml 5.19 ml 212.27 ml Nutrition Consultation Dietary Evaluation: Recommendations by RD: Increase Calorie Intake, PPN/TPN Comments: REC continue PPN for short-term non-oral, parental nutrition at this time When able pending GI status, recommend TF per following: VitalAF@goal rate 45 ml/hr w/125 ml water flushes q4 hrs or flushes per MD Expected Outcomes/Goals: Nutrition support to meet >75% est nutrition needs while pt remains intubated Interpretation of weight loss: >5% in 1 month Malnutrition Findings: Food and Nutrition Intake (Sev: <50% est energy req 5days Weight Status: Appropriate DUNG RUSSELL MD Feb 28, 2019 09:05
[2019-02-28 09:14] LABS: CALCIUM 8.4 mg/dL (8.5-10.1); CREATININE 0.6 mg/dL (0.7-1.3); GFR 165.5; MAGNESIUM 2.2 mg/dL (1.8-2.4); POTASSIUM 3.2 mmol/L (3.5-5.1)
[2019-02-28 09:20] LABS: VANC TR 6.6 mcg/mL (10.0-20.0)
[2019-02-28] MEDS: VANCOMYCIN PER PHARMACY MC PRN ×2 (09:37→09:38)
--- NOTE | 2019-02-28 09:39 | NUR ---
Pharmacy Vancomycin Dosing Note S: Consulted to monitor and dose vancomycin started 02/27/19. O: BERE ABEL is a 23 year old M with ?Meningitis Other Antibiotics: ROCEPHIN 2G IV Q12HRS ACYCLOVIR 10 MG/KG Q8HRS D/C'D 02/28 LABS: Last BUN: 6 Last Creatinine: 0.6 Creatinine Clearance: > 100 mL/min Last WBC: 12.4 Last Procalcitonin: <0.1 Tmax (past 24 hours): 101 Microbiology: BLOOD CX (02/27) [facility]: PENDING CSF CX (02/27) [facility]: PEND[facility] I/O: 4683/3208 Drug Levels: Last Trough level: 6.6 on 02/28/19 at 0840 Last dose given 02/28/19 at 0042 Vancomycin Dosing: Dosing Weight: Actual Target Trough: 15-20 A: Based on: trough P: 1. Change Vancomycin to 1500 mg IV q8h 2. Follow up Trough level on 03/01/19 at 0930 3. Pharmacy will continue to monitor, follow and adjust therapy as needed. Savannah Padgett [facility], 02/28/19 0997
[2019-02-28] MEDS: FAMOTIDINE 20 MG/2 ML VIAL IVP SCH ×2 (09:45→20:14)
[2019-02-28] MEDS: cefTRIAXone IV Push 2 GM VIAL. IVP SCH ×2 (09:46→20:14)
[2019-02-28] MEDS: VANCOMYCIN 1.5 GM in IV NORMAL SALINE 500ML BAG 500 ML IV SCH ×2 (10:00→18:29)
[2019-02-28] MEDS: ENOXAPARIN 40 MG/0.4 ML SYRINGE. SQ SCH (12:01)
--- NOTE | 2019-02-28 12:01 | RAD ---
EXAM: CHEST 1 VIEW. HISTORY: Intubated, respiratory failure. COMPARISON: 02/27/2019. FINDINGS: A frontal view of the chest is obtained. An endotracheal tube has its tip 4.5 cm above the jeremias. A nasogastric tube has its tip below the inferior margin of the view. A mild opacity in the left base consistent with atelectasis or small focal infiltrate.. There is no pneumothorax or pleural effusion. The heart is not enlarged. IMPRESSION: 1. Left basilar atelectasis versus mild infiltrate.. Electronically signed by: Lazaro Mcneil MD (02/28/2019 11:58 AM) [facility]
[2019-02-28] MEDS: POTASSIUM CHLORIDE 10MEQ 100 ML IV SCH ×4 (12:04→15:15)
--- NOTE | 2019-02-28 12:52 | NUR ---
Procalamine bottle still infusing Non-admin due bottle.
[2019-02-28] MEDS ORDERED: BUPR1FIL5 SL (16:18)
[2019-02-28] MEDS: MIDAZOLAM 100mg/100ml NS BAG 100 ML IV PRN (16:48)
--- NOTE | 2019-02-28 18:44 | NUR ---
Sedation vacation given to Pt, aroused and was able to follow commands. Pt placed on Precedex and quickly bradycardia set in and went from 75bpm to 48bpm, Precedex stopped and Pt's heart rate increased to previous rate. RT placed Pt on CPAP trial and after 20 minutes Pt wore himself out and became hard to arouse. RT decided to place back on sedation and vent placed back to AC.
[2019-03-01] VITALS (25 sets, daily range): BP systolic 103–138; BP diastolic 46–80
[2019-03-01] MEDS: VANCOMYCIN 1.5 GM in IV NORMAL SALINE 500ML BAG 500 ML IV SCH ×3 (01:14→17:26)
[2019-03-01] MEDS: PROPOFOL 100 ML IV PRN ×2 (05:18→19:52)
--- NOTE | 2019-03-01 06:12 | PDOC ---
PULMONARY PROGRESS NOTES Subjective disregard this note Vitals Vital Signs Date Time Temp Pulse Resp B/P (MAP) Pulse Ox O2 Delivery O2 Flow Rate FiO2 03/01/19 05:00 49 14 118/64 (82) 99 Ventilator 03/01/19 04:00 99.2 99.2 Comments ros as mentioned as above discussed w rn, other sys otherwise neg sedated on vent HEENT: Other (nc at perrl nose clear orally intubated neck no lad no thyromegaly) Lungs: Crackles Cardiovascular: S1, S2 Abdomen: Soft, Non-tender, Other (no mass) Extremities: No Edema Skin: Warm Labs Laboratory Tests Test 02/27/19 07:30 02/27/19 08:10 02/28/19 07:45 02/28/19 08:40 White Blood Count 12.4 x10^3/uL (4.0-11.0) 9.0 x10^3/uL (4.0-11.0) Red Blood Count 4.08 x10^6/uL (4.30-5.70) 4.37 x10^6/uL (4.30-5.70) Hemoglobin 12.0 g/dL (13.0-17.5) 13.1 g/dL (13.0-17.5) Hematocrit 35.6 % (39.0-53.0) 37.9 % (39.0-53.0) Mean Corpuscular Volume 87 fL (79-100) 87 fL (79-100) Mean Corpuscular Hemoglobin 30 pg (25-35) 30 pg (25-35) Mean Corpuscular Hemoglobin Concent 34 g/dL (31-37) 35 g/dL (31-37) Red Cell Distribution Width 13.5 % (11.5-14.5) 13.8 % (11.5-14.5) Platelet Count 240 x10^3/uL (140-400) 239 x10^3/uL (140-400) Neutrophils (%) (Auto) 70 % (31-73) 67 % (31-73) Lymphocytes (%) (Auto) 19 % (24-48) 19 % (24-48) Monocytes (%) (Auto) 11 % (0-9) 13 % (0-9) Eosinophils (%) (Auto) 0 % (0-3) 0 % (0-3) Basophils (%) (Auto) 0 % (0-3) 1 % (0-3) Neutrophils # (Auto) 8.7 x10^3uL (1.8-7.7) 6.0 x10^3uL (1.8-7.7) Lymphocytes # (Auto) 2.4 x10^3/uL (1.0-4.8) 1.7 x10^3/uL (1.0-4.8) Monocytes # (Auto) 1.3 x10^3/uL (0.0-1.1) 1.1 x10^3/uL (0.0-1.1) Eosinophils # (Auto) 0.0 x10^3/uL (0.0-0.7) 0.0 x10^3/uL (0.0-0.7) Basophils # (Auto) 0.0 x10^3/uL (0.0-0.2) 0.1 x10^3/uL (0.0-0.2) Sodium Level 141 mmol/L (136-145) 140 mmol/L (136-145) Potassium Level 3.6 mmol/L (3.5-5.1) 3.2 mmol/L (3.5-5.1) Chloride Level 106 mmol/L (98-107) 104 mmol/L (98-107) Carbon Dioxide Level 24 mmol/L (21-32) 28 mmol/L (21-32) Anion Gap 11 (6-14) 8 (6-14) Blood Urea Nitrogen 9 mg/dL (8-26) 6 mg/dL (8-26) Creatinine 0.7 mg/dL (0.7-1.3) 0.6 mg/dL (0.7-1.3) Estimated GFR (Cockcroft-Gault) 138.6 165.5 BUN/Creatinine Ratio 13 (6-20) Glucose Level 103 mg/dL (70-99) 96 mg/dL (70-99) Lactic Acid Level 1.1 mmol/L (0.4-2.0) Calcium Level 8.1 mg/dL (8.5-10.1) 8.4 mg/dL (8.5-10.1) Total Bilirubin 0.4 mg/dL (0.2-1.0) Aspartate Amino Transf (AST/SGOT) 26 U/L (15-37) Alanine Aminotransferase (ALT/SGPT) 21 U/L (16-63) Alkaline Phosphatase 63 U/L (46-116) Total Protein 5.9 g/dL (6.4-8.2) Albumin 2.9 g/dL (3.4-5.0) Albumin/Globulin Ratio 1.0 (1.0-1.7) Procalcitonin < 0.10 ng/mL (0.00-0.10) O2 Saturation 98 % (92-99) 93 % (92-99) Arterial Blood pH 7.39 (7.35-7.45) 7.45 (7.35-7.45) Arterial Blood pCO2 at Patient Temp 36 mmHg (35-46) 39 mmHg (35-46) Arterial Blood pO2 at Patient Temp 155 mmHg (85-108) 63 mmHg (85-108) Arterial Blood HCO3 21 mmol/L (21-28) 26 mmol/L (21-28) Arterial Blood Base Excess -3 mmol/L (-3-3) 2 mmol/L (-3-3) FiO2 40 40 Magnesium Level 2.2 mg/dL (1.8-2.4) Vancomycin Level Trough 6.6 mcg/mL (10.0-20.0) Vancomycin Last Dose Date 02/28/19 Vancomycin Last Dose Time 0100 Laboratory Tests Test 02/28/19 07:45 02/28/19 08:40 O2 Saturation 93 % (92-99) Arterial Blood pH 7.45 (7.35-7.45) Arterial Blood pCO2 at Patient Temp 39 mmHg (35-46) Arterial Blood pO2 at Patient Temp 63 mmHg (85-108) Arterial Blood HCO3 26 mmol/L (21-28) Arterial Blood Base Excess 2 mmol/L (-3-3) FiO2 40 White Blood Count 9.0 x10^3/uL (4.0-11.0) Red Blood Count 4.37 x10^6/uL (4.30-5.70) Hemoglobin 13.1 g/dL (13.0-17.5) Hematocrit 37.9 % (39.0-53.0) Mean Corpuscular Volume 87 fL (79-100) Mean Corpuscular Hemoglobin 30 pg (25-35) Mean Corpuscular Hemoglobin Concent 35 g/dL (31-37) Red Cell Distribution Width 13.8 % (11.5-14.5) Platelet Count 239 x10^3/uL (140-400) Neutrophils (%) (Auto) 67 % (31-73) Lymphocytes (%) (Auto) 19 % (24-48) Monocytes (%) (Auto) 13 % (0-9) Eosinophils (%) (Auto) 0 % (0-3) Basophils (%) (Auto) 1 % (0-3) Neutrophils # (Auto) 6.0 x10^3uL (1.8-7.7) Lymphocytes # (Auto) 1.7 x10^3/uL (1.0-4.8) Monocytes # (Auto) 1.1 x10^3/uL (0.0-1.1) Eosinophils # (Auto) 0.0 x10^3/uL (0.0-0.7) Basophils # (Auto) 0.1 x10^3/uL (0.0-0.2) Sodium Level 140 mmol/L (136-145) Potassium Level 3.2 mmol/L (3.5-5.1) Chloride Level 104 mmol/L (98-107) Carbon Dioxide Level 28 mmol/L (21-32) Anion Gap 8 (6-14) Blood Urea Nitrogen 6 mg/dL (8-26) Creatinine 0.6 mg/dL (0.7-1.3) Estimated GFR (Cockcroft-Gault) 165.5 Glucose Level 96 mg/dL (70-99) Calcium Level 8.4 mg/dL (8.5-10.1) Magnesium Level 2.2 mg/dL (1.8-2.4) Vancomycin Level Trough 6.6 mcg/mL (10.0-20.0) Vancomycin Last Dose Date 02/28/19 Vancomycin Last Dose Time 0100 Medications Active Scripts Medications Dose Route/Sig Max Daily Dose Days Date Category Suboxone 8 Mg-2 Mg Sl Film (Buprenorphine Hcl/Naloxone Hcl) 1 Each Film 1 Strip SL BID PRN 02/28/19 Reported Comments cxr reviewed, ett ok, mild l atelectasis Impression . IMPRESSION: 1. Acute hypoxemic respiratory failure, multifactorial. 2. Opiate dependent, presents with toxic metabolic encephalopathy. 3. Toxic metabolic encephalopathy. 4. bacterial meningitis/encephalitis, GPC on gram stain; cultures pending , 5. History of depression and anxiety. 6. Chronic obstructive pulmonary disease. 7. Tobacco dependence. Plan . PLAN: 1. cont vent support, setting reviewed, sbt when alert 2. Antibiotics per Infectious Disease service. Vanc, Rocephin 3. Initiate nutritional support per NG tube. 4. DVT and GI prophylaxis. 5. Follow other consultants' input. discussed w RAFI Roy MD Mar 01, 2019 06:12
--- NOTE | 2019-03-01 06:15 | PDOC ---
PULMONARY PROGRESS NOTES Subjective on vent, sedated, on propofol, versed, small ett, followed commands, didnt tolerate sbt yesterday, tachypneac. off sedation follows commands Vitals Vital Signs Date Time Temp Pulse Resp B/P (MAP) Pulse Ox O2 Delivery O2 Flow Rate FiO2 03/01/19 05:00 49 14 118/64 (82) 99 Ventilator 03/01/19 04:00 99.2 99.2 Comments ros as mentioned as above discussed w rn, other sys otherwise neg sedated on vent HEENT: Other (nc at perrl nose clear orally intubated neck no lad no thyromegaly) Lungs: Crackles, Other (dull on r base) Cardiovascular: S1, S2 Abdomen: Soft, Non-tender, Other (no mass) Extremities: No Edema Skin: Warm Labs Laboratory Tests Test 02/27/19 07:30 02/27/19 08:10 02/28/19 07:45 02/28/19 08:40 White Blood Count 12.4 x10^3/uL (4.0-11.0) 9.0 x10^3/uL (4.0-11.0) Red Blood Count 4.08 x10^6/uL (4.30-5.70) 4.37 x10^6/uL (4.30-5.70) Hemoglobin 12.0 g/dL (13.0-17.5) 13.1 g/dL (13.0-17.5) Hematocrit 35.6 % (39.0-53.0) 37.9 % (39.0-53.0) Mean Corpuscular Volume 87 fL (79-100) 87 fL (79-100) Mean Corpuscular Hemoglobin 30 pg (25-35) 30 pg (25-35) Mean Corpuscular Hemoglobin Concent 34 g/dL (31-37) 35 g/dL (31-37) Red Cell Distribution Width 13.5 % (11.5-14.5) 13.8 % (11.5-14.5) Platelet Count 240 x10^3/uL (140-400) 239 x10^3/uL (140-400) Neutrophils (%) (Auto) 70 % (31-73) 67 % (31-73) Lymphocytes (%) (Auto) 19 % (24-48) 19 % (24-48) Monocytes (%) (Auto) 11 % (0-9) 13 % (0-9) Eosinophils (%) (Auto) 0 % (0-3) 0 % (0-3) Basophils (%) (Auto) 0 % (0-3) 1 % (0-3) Neutrophils # (Auto) 8.7 x10^3uL (1.8-7.7) 6.0 x10^3uL (1.8-7.7) Lymphocytes # (Auto) 2.4 x10^3/uL (1.0-4.8) 1.7 x10^3/uL (1.0-4.8) Monocytes # (Auto) 1.3 x10^3/uL (0.0-1.1) 1.1 x10^3/uL (0.0-1.1) Eosinophils # (Auto) 0.0 x10^3/uL (0.0-0.7) 0.0 x10^3/uL (0.0-0.7) Basophils # (Auto) 0.0 x10^3/uL (0.0-0.2) 0.1 x10^3/uL (0.0-0.2) Sodium Level 141 mmol/L (136-145) 140 mmol/L (136-145) Potassium Level 3.6 mmol/L (3.5-5.1) 3.2 mmol/L (3.5-5.1) Chloride Level 106 mmol/L (98-107) 104 mmol/L (98-107) Carbon Dioxide Level 24 mmol/L (21-32) 28 mmol/L (21-32) Anion Gap 11 (6-14) 8 (6-14) Blood Urea Nitrogen 9 mg/dL (8-26) 6 mg/dL (8-26) Creatinine 0.7 mg/dL (0.7-1.3) 0.6 mg/dL (0.7-1.3) Estimated GFR (Cockcroft-Gault) 138.6 165.5 BUN/Creatinine Ratio 13 (6-20) Glucose Level 103 mg/dL (70-99) 96 mg/dL (70-99) Lactic Acid Level 1.1 mmol/L (0.4-2.0) Calcium Level 8.1 mg/dL (8.5-10.1) 8.4 mg/dL (8.5-10.1) Total Bilirubin 0.4 mg/dL (0.2-1.0) Aspartate Amino Transf (AST/SGOT) 26 U/L (15-37) Alanine Aminotransferase (ALT/SGPT) 21 U/L (16-63) Alkaline Phosphatase 63 U/L (46-116) Total Protein 5.9 g/dL (6.4-8.2) Albumin 2.9 g/dL (3.4-5.0) Albumin/Globulin Ratio 1.0 (1.0-1.7) Procalcitonin < 0.10 ng/mL (0.00-0.10) O2 Saturation 98 % (92-99) 93 % (92-99) Arterial Blood pH 7.39 (7.35-7.45) 7.45 (7.35-7.45) Arterial Blood pCO2 at Patient Temp 36 mmHg (35-46) 39 mmHg (35-46) Arterial Blood pO2 at Patient Temp 155 mmHg (85-108) 63 mmHg (85-108) Arterial Blood HCO3 21 mmol/L (21-28) 26 mmol/L (21-28) Arterial Blood Base Excess -3 mmol/L (-3-3) 2 mmol/L (-3-3) FiO2 40 40 Magnesium Level 2.2 mg/dL (1.8-2.4) Vancomycin Level Trough 6.6 mcg/mL (10.0-20.0) Vancomycin Last Dose Date 02/28/19 Vancomycin Last Dose Time 0100 Laboratory Tests Test 02/28/19 07:45 02/28/19 08:40 O2 Saturation 93 % (92-99) Arterial Blood pH 7.45 (7.35-7.45) Arterial Blood pCO2 at Patient Temp 39 mmHg (35-46) Arterial Blood pO2 at Patient Temp 63 mmHg (85-108) Arterial Blood HCO3 26 mmol/L (21-28) Arterial Blood Base Excess 2 mmol/L (-3-3) FiO2 40 White Blood Count 9.0 x10^3/uL (4.0-11.0) Red Blood Count 4.37 x10^6/uL (4.30-5.70) Hemoglobin 13.1 g/dL (13.0-17.5) Hematocrit 37.9 % (39.0-53.0) Mean Corpuscular Volume 87 fL (79-100) Mean Corpuscular Hemoglobin 30 pg (25-35) Mean Corpuscular Hemoglobin Concent 35 g/dL (31-37) Red Cell Distribution Width 13.8 % (11.5-14.5) Platelet Count 239 x10^3/uL (140-400) Neutrophils (%) (Auto) 67 % (31-73) Lymphocytes (%) (Auto) 19 % (24-48) Monocytes (%) (Auto) 13 % (0-9) Eosinophils (%) (Auto) 0 % (0-3) Basophils (%) (Auto) 1 % (0-3) Neutrophils # (Auto) 6.0 x10^3uL (1.8-7.7) Lymphocytes # (Auto) 1.7 x10^3/uL (1.0-4.8) Monocytes # (Auto) 1.1 x10^3/uL (0.0-1.1) Eosinophils # (Auto) 0.0 x10^3/uL (0.0-0.7) Basophils # (Auto) 0.1 x10^3/uL (0.0-0.2) Sodium Level 140 mmol/L (136-145) Potassium Level 3.2 mmol/L (3.5-5.1) Chloride Level 104 mmol/L (98-107) Carbon Dioxide Level 28 mmol/L (21-32) Anion Gap 8 (6-14) Blood Urea Nitrogen 6 mg/dL (8-26) Creatinine 0.6 mg/dL (0.7-1.3) Estimated GFR (Cockcroft-Gault) 165.5 Glucose Level 96 mg/dL (70-99) Calcium Level 8.4 mg/dL (8.5-10.1) Magnesium Level 2.2 mg/dL (1.8-2.4) Vancomycin Level Trough 6.6 mcg/mL (10.0-20.0) Vancomycin Last Dose Date 02/28/19 Vancomycin Last Dose Time 0100 Medications Active Scripts Medications Dose Route/Sig Max Daily Dose Days Date Category Suboxone 8 Mg-2 Mg Sl Film (Buprenorphine Hcl/Naloxone Hcl) 1 Each Film 1 Strip SL BID PRN 02/28/19 Reported Comments cxr reviewed, ett ok, Interval development of a small right pleural effusion and right basilar atelectasis Impression . IMPRESSION: 1. Acute hypoxemic respiratory failure, multifactorial. 2. Opiate dependent, presents with toxic metabolic encephalopathy. 3. Toxic metabolic encephalopathy. 4. bacterial meningitis/encephalitis, GPC on gram stain; cultures pending , 5. History of depression and anxiety. 6. Chronic obstructive pulmonary disease. 7. Tobacco dependence. 8. abnl cxr, basilar atelectasis, small effusion, add BD Plan . PLAN: 1. cont vent support, setting reviewed, sbt when alert 2. Antibiotics per Infectious Disease service. Vanc, Rocephin 3. Initiate nutritional support per NG tube. 4. DVT and GI prophylaxis. 5. Follow other consultants' input. 6. add BD discussed w RAFI Roy MD Mar 01, 2019 06:15
--- NOTE | 2019-03-01 07:16 | PDOC ---
PROGRESS NOTES Chief Complaint Chief Complaint A/P: Acute encephalopathy - multifactorial with sepsis, WBC in CSF, hypercapnea. Gram positive cocci on CSF, will cont vanco and zosyn Hypercapnic respiratory failure - s/p intubation. Will consult pulmonology. Likely this was multifactorial from opioid OD Severe sepsis - with concern for meningitis, initially with low WBC was more likely viral, however now with positive gram positive cocci in [employer], will cover broadly and consult ID. F/u blood cultures, LP Opioid use disorder - in partial remission. Unlikely he was actually taking his suboxone prior to admit as his opioids were positive. I would avoid any opioids and have asked his family to bring his suboxone strips in to administer 8/2mg BID for treatment Hep C - likely from IVDA. unknown viral titer. ID consulted Lactic acidosis - from severe sepsis. Hydration Hypokalemia - will replace, monitor Hyperglycemia - likely from sepsis, no DM history, will monitor Petechial rash - could be secondary to sepsis or 2/2 Hep C FEN - NPO, can consider OGT feeds PPX - will start lovenox 24 FULL CODE ICU for critically ill septic patient 49 minutes CC time History of Present Illness History of Present Illness Mr Hodgson is a 23yo M w/ PMHx opioid dependence in partial remission on suboxone therapy, Hepatitis C who presented to [place] emergency department with acute altered mental status, fevers, rash, seizure like activity. He required rapid sequence intubation with succinylcholine and etomidate upon arrival just facilitate care after IV access was able to be obtained. There was some blood noted around the patient's mouth, and in the oropharynx, of unknown source, there was no clear source visualized. There was also a scattered petechial rash on the patient's chest and upper neck, the patient's girlfriend states it has been there for about 2 weeks. He did not have any meningismus upon arrival but felt warm to the touch. Rectal temperature was 100.8F, WBC 14.2, lactate 4.9, tachycardic. He underwent LP after intubation with CSF WBCs 315 with 82% Monocytes ABG was 7.33/51/125 and UDS was positive for opioids and benzos, family states he is on suboxone, however, buprenorphine specifically does not test positive for opioids on standard UDS. Had vent wean yesterday, did not tolerate well. Overnight tolerated vent well. Gram positive cocci in CSF. UOP good. No fevers. Vitals Vitals Vital Signs Date Time Temp Pulse Resp B/P (MAP) Pulse Ox O2 Delivery O2 Flow Rate FiO2 03/01/19 06:00 52 14 127/73 (91) 100 Ventilator 03/01/19 04:00 99.2 99.2 Physical Exam Physical Exam GENERAL: Unresponsive, sedated and orally intubated, mitts on HEENT: Pupils equal, ETT and OGT NECK: Supple, no JVP, no lymphadenopathy. LUNGS: Clear. HEART: S1, S2 regular. ABDOMEN: BS active, soft, no guarding : Indwelling Mcintosh in place EXTREMITIES: No edema or cyanosis. SCDs in place SKIN: Nonblanching fine macular -type rash on the upper torso/neck and face. NEUROLOGIC: Unresponsive to verbal stimuli, moves some to touch PIVs General: Other (Sedated on vent) Lungs: Crackles Abdomen: Normal bowel sounds, Soft, No tenderness, No hepatosplenomegaly, No masses Extremities: No clubbing, No cyanosis, No edema, Normal pulses, No tenderness/swelling Skin: Other (Diffuse petechial rash on chest, multiple scars on both arms) Labs LABS Laboratory Tests Test 02/28/19 07:45 02/28/19 08:40 O2 Saturation 93 % (92-99) Arterial Blood pH 7.45 (7.35-7.45) Arterial Blood pCO2 at Patient Temp 39 mmHg (35-46) Arterial Blood pO2 at Patient Temp 63 mmHg (85-108) Arterial Blood HCO3 26 mmol/L (21-28) Arterial Blood Base Excess 2 mmol/L (-3-3) FiO2 40 White Blood Count 9.0 x10^3/uL (4.0-11.0) Red Blood Count 4.37 x10^6/uL (4.30-5.70) Hemoglobin 13.1 g/dL (13.0-17.5) Hematocrit 37.9 % (39.0-53.0) Mean Corpuscular Volume 87 fL (79-100) Mean Corpuscular Hemoglobin 30 pg (25-35) Mean Corpuscular Hemoglobin Concent 35 g/dL (31-37) Red Cell Distribution Width 13.8 % (11.5-14.5) Platelet Count 239 x10^3/uL (140-400) Neutrophils (%) (Auto) 67 % (31-73) Lymphocytes (%) (Auto) 19 % (24-48) Monocytes (%) (Auto) 13 % (0-9) Eosinophils (%) (Auto) 0 % (0-3) Basophils (%) (Auto) 1 % (0-3) Neutrophils # (Auto) 6.0 x10^3uL (1.8-7.7) Lymphocytes # (Auto) 1.7 x10^3/uL (1.0-4.8) Monocytes # (Auto) 1.1 x10^3/uL (0.0-1.1) Eosinophils # (Auto) 0.0 x10^3/uL (0.0-0.7) Basophils # (Auto) 0.1 x10^3/uL (0.0-0.2) Sodium Level 140 mmol/L (136-145) Potassium Level 3.2 mmol/L (3.5-5.1) Chloride Level 104 mmol/L (98-107) Carbon Dioxide Level 28 mmol/L (21-32) Anion Gap 8 (6-14) Blood Urea Nitrogen 6 mg/dL (8-26) Creatinine 0.6 mg/dL (0.7-1.3) Estimated GFR (Cockcroft-Gault) 165.5 Glucose Level 96 mg/dL (70-99) Calcium Level 8.4 mg/dL (8.5-10.1) Magnesium Level 2.2 mg/dL (1.8-2.4) Vancomycin Level Trough 6.6 mcg/mL (10.0-20.0) Vancomycin Last Dose Date 02/28/19 Vancomycin Last Dose Time 0100 Comment Review of Relevant I have reviewed the following items kaye (where applicable) has been applied. Labs Laboratory Tests Test 02/27/19 07:30 02/27/19 08:10 02/28/19 07:45 02/28/19 08:40 White Blood Count 12.4 x10^3/uL (4.0-11.0) 9.0 x10^3/uL (4.0-11.0) Red Blood Count 4.08 x10^6/uL (4.30-5.70) 4.37 x10^6/uL (4.30-5.70) Hemoglobin 12.0 g/dL (13.0-17.5) 13.1 g/dL (13.0-17.5) Hematocrit 35.6 % (39.0-53.0) 37.9 % (39.0-53.0) Mean Corpuscular Volume 87 fL (79-100) 87 fL (79-100) Mean Corpuscular Hemoglobin 30 pg (25-35) 30 pg (25-35) Mean Corpuscular Hemoglobin Concent 34 g/dL (31-37) 35 g/dL (31-37) Red Cell Distribution Width 13.5 % (11.5-14.5) 13.8 % (11.5-14.5) Platelet Count 240 x10^3/uL (140-400) 239 x10^3/uL (140-400) Neutrophils (%) (Auto) 70 % (31-73) 67 % (31-73) Lymphocytes (%) (Auto) 19 % (24-48) 19 % (24-48) Monocytes (%) (Auto) 11 % (0-9) 13 % (0-9) Eosinophils (%) (Auto) 0 % (0-3) 0 % (0-3) Basophils (%) (Auto) 0 % (0-3) 1 % (0-3) Neutrophils # (Auto) 8.7 x10^3uL (1.8-7.7) 6.0 x10^3uL (1.8-7.7) Lymphocytes # (Auto) 2.4 x10^3/uL (1.0-4.8) 1.7 x10^3/uL (1.0-4.8) Monocytes # (Auto) 1.3 x10^3/uL (0.0-1.1) 1.1 x10^3/uL (0.0-1.1) Eosinophils # (Auto) 0.0 x10^3/uL (0.0-0.7) 0.0 x10^3/uL (0.0-0.7) Basophils # (Auto) 0.0 x10^3/uL (0.0-0.2) 0.1 x10^3/uL (0.0-0.2) Sodium Level 141 mmol/L (136-145) 140 mmol/L (136-145) Potassium Level 3.6 mmol/L (3.5-5.1) 3.2 mmol/L (3.5-5.1) Chloride Level 106 mmol/L (98-107) 104 mmol/L (98-107) Carbon Dioxide Level 24 mmol/L (21-32) 28 mmol/L (21-32) Anion Gap 11 (6-14) 8 (6-14) Blood Urea Nitrogen 9 mg/dL (8-26) 6 mg/dL (8-26) Creatinine 0.7 mg/dL (0.7-1.3) 0.6 mg/dL (0.7-1.3) Estimated GFR (Cockcroft-Gault) 138.6 165.5 BUN/Creatinine Ratio 13 (6-20) Glucose Level 103 mg/dL (70-99) 96 mg/dL (70-99) Lactic Acid Level 1.1 mmol/L (0.4-2.0) Calcium Level 8.1 mg/dL (8.5-10.1) 8.4 mg/dL (8.5-10.1) Total Bilirubin 0.4 mg/dL (0.2-1.0) Aspartate Amino Transf (AST/SGOT) 26 U/L (15-37) Alanine Aminotransferase (ALT/SGPT) 21 U/L (16-63) Alkaline Phosphatase 63 U/L (46-116) Total Protein 5.9 g/dL (6.4-8.2) Albumin 2.9 g/dL (3.4-5.0) Albumin/Globulin Ratio 1.0 (1.0-1.7) Procalcitonin < 0.10 ng/mL (0.00-0.10) O2 Saturation 98 % (92-99) 93 % (92-99) Arterial Blood pH 7.39 (7.35-7.45) 7.45 (7.35-7.45) Arterial Blood pCO2 at Patient Temp 36 mmHg (35-46) 39 mmHg (35-46) Arterial Blood pO2 at Patient Temp 155 mmHg (85-108) 63 mmHg (85-108) Arterial Blood HCO3 21 mmol/L (21-28) 26 mmol/L (21-28) Arterial Blood Base Excess -3 mmol/L (-3-3) 2 mmol/L (-3-3) FiO2 40 40 Magnesium Level 2.2 mg/dL (1.8-2.4) Vancomycin Level Trough 6.6 mcg/mL (10.0-20.0) Vancomycin Last Dose Date 02/28/19 Vancomycin Last Dose Time 0100 Laboratory Tests Test 02/28/19 07:45 02/28/19 08:40 O2 Saturation 93 % (92-99) Arterial Blood pH 7.45 (7.35-7.45) Arterial Blood pCO2 at Patient Temp 39 mmHg (35-46) Arterial Blood pO2 at Patient Temp 63 mmHg (85-108) Arterial Blood HCO3 26 mmol/L (21-28) Arterial Blood Base Excess 2 mmol/L (-3-3) FiO2 40 White Blood Count 9.0 x10^3/uL (4.0-11.0) Red Blood Count 4.37 x10^6/uL (4.30-5.70) Hemoglobin 13.1 g/dL (13.0-17.5) Hematocrit 37.9 % (39.0-53.0) Mean Corpuscular Volume 87 fL (79-100) Mean Corpuscular Hemoglobin 30 pg (25-35) Mean Corpuscular Hemoglobin Concent 35 g/dL (31-37) Red Cell Distribution Width 13.8 % (11.5-14.5) Platelet Count 239 x10^3/uL (140-400) Neutrophils (%) (Auto) 67 % (31-73) Lymphocytes (%) (Auto) 19 % (24-48) Monocytes (%) (Auto) 13 % (0-9) Eosinophils (%) (Auto) 0 % (0-3) Basophils (%) (Auto) 1 % (0-3) Neutrophils # (Auto) 6.0 x10^3uL (1.8-7.7) Lymphocytes # (Auto) 1.7 x10^3/uL (1.0-4.8) Monocytes # (Auto) 1.1 x10^3/uL (0.0-1.1) Eosinophils # (Auto) 0.0 x10^3/uL (0.0-0.7) Basophils # (Auto) 0.1 x10^3/uL (0.0-0.2) Sodium Level 140 mmol/L (136-145) Potassium Level 3.2 mmol/L (3.5-5.1) Chloride Level 104 mmol/L (98-107) Carbon Dioxide Level 28 mmol/L (21-32) Anion Gap 8 (6-14) Blood Urea Nitrogen 6 mg/dL (8-26) Creatinine 0.6 mg/dL (0.7-1.3) Estimated GFR (Cockcroft-Gault) 165.5 Glucose Level 96 mg/dL (70-99) Calcium Level 8.4 mg/dL (8.5-10.1) Magnesium Level 2.2 mg/dL (1.8-2.4) Vancomycin Level Trough 6.6 mcg/mL (10.0-20.0) Vancomycin Last Dose Date 02/28/19 Vancomycin Last Dose Time 0100 Medications Current Medications Propofol 100 ml @ As Directed STK-MED ONCE IV ; Start 02/27/19 at 07:28; Stop 02/27/19 at 07:29; Status DC Midazolam HCl 100 ml @ 5 mls/hr CONT PRN IV SEE I/O RECORD Last administered on 02/28/19at 16:48; Start 02/27/19 at 07:30 Propofol 100 ml @ 0 mls/hr CONT PRN IV SEE I/O RECORD Last administered on 03/01/19at 05:18; Start 02/27/19 at 07:30 Doxycycline Hyclate 100 mg/ Dextrose 100 ml @ 50 mls/hr Q12HR IV ; Start 02/27/19 at 09:00; Stop 02/27/19 at 09:36; Status DC Piperacillin Sod/ Tazobactam Sod 3.375 gm/Sodium Chloride 50 ml @ 100 mls/hr Q6HRS IV ; Start 02/27/19 at 08:00; Stop 02/27/19 at 08:54; Status DC Sodium Chloride 1,000 ml @ 2,130 mls/hr Q29M IV Last administered on 02/27/19at 09:36; Start 02/27/19 at 07:24; Stop 02/27/19 at 08:24; Status DC Norepinephrine Bitartrate 250 ml @ 0 mls/hr CONT PRN IV SEE I/O RECORD; Start 02/27/19 at 07:30 Ceftriaxone Sodium (Rocephin) 2 gm Q24H IVP ; Start 02/27/19 at 09:00; Stop 02/27/19 at 09:00; Status DC Vancomycin HCl 1.5 gm/Sodium Chloride 500 ml @ 250 mls/hr Q12H IV ; Start 02/27/19 at 08:30; Stop 02/27/19 at 08:56; Status DC Ceftriaxone Sodium (Rocephin) 2 gm Q24H IVP ; Start 02/27/19 at 21:00; Stop 02/27/19 at 21:00; Status DC Vancomycin HCl (Vanco Per Pharmacy) 1 each PRN DAILY PRN MC SEE COMMENTS Last administered on 02/28/19at 09:38; Start 02/27/19 at 08:45 Vancomycin HCl 750 mg/Sodium Chloride 250 ml @ 250 mls/hr 1X ONCE IV Last administered on 02/27/19at 09:45; Start 02/27/19 at 09:30; Stop 02/27/19 at 10:29; Status DC Ceftriaxone Sodium (Rocephin) 1 gm 1X ONCE IVP Last administered on 02/27/19at 09:38; Start 02/27/19 at 09:00; Stop 02/27/19 at 09:01; Status DC Acyclovir Sodium 650 mg/Dextrose 113 ml @ 113 mls/hr Q8HRS IV Last administered on 02/28/19at 06:00; Start 02/27/19 at 10:00; Stop 02/28/19 at 09:26; Status DC Vancomycin HCl 1 gm/Sodium Chloride 250 ml @ 250 mls/hr Q8H IV Last administered on 02/28/19at 00:42; Start 02/27/19 at 17:00; Stop 02/28/19 at 09:36; Status DC Vancomycin HCl (Vancomycin Trough Level) 1 each 1X ONCE MC Last administered on 02/28/19at 08:30; Start 02/28/19 at 08:30; Stop 02/28/19 at 08:31; Status DC Ondansetron HCl (Zofran) 4 mg PRN Q6HRS PRN IV NAUSEA/VOMITING; Start 02/27/19 at 11:00 Famotidine (Pepcid Vial) 20 mg BID IVP Last administered on 02/28/19at 20:14; Start 02/27/19 at 21:00 Amino Acids/ Glycerin/ Electrolytes 1,000 ml @ 80 mls/hr [id number] IV Last administered on 02/28/19at 01:21; Start 02/27/19 at 11:00; Stop 02/28/19 at 15:43; Status DC Ceftriaxone Sodium (Rocephin) 2 gm Q12HR IVP Last administered on 02/28/19at 20:14; Start 02/27/19 at 21:00 Lansoprazole (Prevacid) 30 mg 1X ONCE FT Last administered on 02/27/19at 13:52; Start 02/27/19 at 13:45; Stop 02/27/19 at 13:46; Status DC Acetaminophen (Tylenol) 1,000 mg PRN Q6HRS PRN PO FEVER Last administered on 02/27/19at 15:40; Start 02/27/19 at 15:45 Fentanyl Citrate 30 ml @ 0 mls/hr CONT PRN IV SEE PROTOCOL; Start 02/28/19 at 06:30; Stop 02/28/19 at 09:29; Status DC Dexmedetomidine HCl 200 mcg/ Sodium Chloride 50 ml @ 0 mls/hr CONT PRN IV PER PROTOCOL Last administered on 02/28/19at 09:43; Start 02/28/19 at 08:30 Sodium Chloride 500 ml @ 500 mls/hr 1X PRN PRN IV SEE COMMENTS; Start 02/28/19 at 08:30 Atropine Sulfate (ATROPINE 0.5mg SYRINGE) 0.5 mg PRN Q5MIN PRN IV SEE COMMENTS; Start 02/28/19 at 08:30 Enoxaparin Sodium (Lovenox 40mg Syringe) 40 mg Q24H SQ Last administered on 02/28/19at 12:01; Start 02/28/19 at 10:00 Vancomycin HCl 1.5 gm/Sodium Chloride 500 ml @ 250 mls/hr Q8H IV Last administered on 03/01/19at 01:14; Start 02/28/19 at 10:00 Potassium Chloride/Water 100 ml @ 100 mls/hr Q1H IV Last administered on 02/28/19at 15:15; Start 02/28/19 at 11:00; Stop 02/28/19 at 14:59; Status DC Non-Formulary Medication 1 ea BID SL Last administered on 02/28/19at 16:48; Start 6/15/19 at 17:00 Active Scripts Active Reported Suboxone 8 Mg-2 Mg Sl Film (Buprenorphine Hcl/Naloxone Hcl) 1 Each Film 1 Strip SL BID PRN Vitals/I & O Vital Sign - Last 24 Hours 02/28/19 02/28/19 02/28/19 02/28/19 07:42 08:00 08:00 09:00 Temp 98.9 98.9 Pulse 62 70 Resp 14 13 B/P (MAP) 134/66 (88) 130/60 (83) Pulse Ox 98 98 97 O2 Delivery Ventilator Mechanical Ventilator 02/28/19 02/28/19 02/28/19 02/28/19 09:39 10:00 11:00 11:47 Pulse 68 56 Resp 18 23 B/P (MAP) 119/61 (80) 112/59 (76) Pulse Ox 98 97 92 98 O2 Delivery Ventilator Ventilator 02/28/19 02/28/19 02/28/19 02/28/19 12:00 12:00 13:00 13:21 Temp 99.2 99.2 Pulse 55 68 Resp 15 24 B/P (MAP) 124/56 (78) 124/49 (74) Pulse Ox 100 97 98 O2 Delivery Mechanical Ventilator Ventilator Ventilator Ventilator 02/28/19 02/28/19 02/28/19 02/28/19 14:00 15:00 15:03 16:00 Temp 99.2 99.2 Pulse 60 57 59 Resp 14 14 13 B/P (MAP) 126/71 (89) 132/73 (92) 128/64 (85) Pulse Ox 98 100 100 100 O2 Delivery Ventilator Ventilator Ventilator Ventilator 02/28/19 02/28/19 02/28/19 02/28/19 16:00 16:57 18:00 18:08 Pulse 60 70 Resp 14 18 B/P (MAP) 124/60 (81) 124/63 (83) Pulse Ox 99 100 99 O2 Delivery Mechanical Ventilator Ventilator Ventilator Ventilator 02/28/19 02/28/19 02/28/19 02/28/19 19:00 19:28 20:00 20:00 Temp 97.9 97.9 Pulse 66 66 Resp 14 14 B/P (MAP) 122/62 (82) 118/62 (80) Pulse Ox 100 99 99 O2 Delivery Ventilator Ventilator Mechanical Ventilator Ventilator 02/28/19 02/28/19 02/28/19 02/28/19 21:00 21:15 22:00 23:00 Pulse 69 60 60 Resp 14 14 14 B/P (MAP) 112/58 (76) 116/66 (83) 118/60 (79) Pulse Ox 98 99 99 98 O2 Delivery Ventilator Ventilator Ventilator Ventilator 02/28/19 03/01/19 03/01/19 03/01/19 23:20 00:00 00:00 01:00 Temp 99.2 99.2 Pulse 50 50 Resp 14 14 B/P (MAP) 116/57 (76) 119/62 (81) Pulse Ox 98 100 99 O2 Delivery Ventilator Mechanical Ventilator Ventilator Ventilator 03/01/19 03/01/19 03/01/19 03/01/19 02:00 02:17 03:00 04:00 Temp 99.2 99.2 Pulse 44 46 47 Resp 14 14 14 B/P (MAP) 117/63 (81) 120/67 (84) 120/62 (81) Pulse Ox 100 98 100 100 O2 Delivery Ventilator Ventilator Ventilator Ventilator 03/01/19 03/01/19 03/01/19 03/01/19 04:00 04:13 05:00 06:00 Pulse 49 52 Resp 14 14 B/P (MAP) 118/64 (82) 127/73 (91) Pulse Ox 98 99 100 O2 Delivery Mechanical Ventilator Ventilator Ventilator Ventilator Intake and Output 02/28/19 02/28/19 03/01/19 15:00 23:00 07:00 Intake Total 600 ml 1620.69 ml 1402.32 ml Output Total 890 ml 458 ml 858 ml Balance -290 ml 1162.69 ml 544.32 ml Nutrition Consultation Dietary Evaluation: Recommendations by RD: Increase Calorie Intake, PPN/TPN Comments: REC continue PPN for short-term non-oral, parental nutrition at this time When able pending GI status, recommend TF per following: VitalAF@goal rate 45 ml/hr w/125 ml water flushes q4 hrs or flushes per MD Expected Outcomes/Goals: Nutrition support to meet >75% est nutrition needs while pt remains intubated Interpretation of weight loss: >5% in 1 month Malnutrition Findings: Food and Nutrition Intake (Sev: <50% est energy req 5days Weight Status: Appropriate DUNG RUSSELL MD Mar 01, 2019 07:16
--- NOTE | 2019-03-01 08:12 | RAD ---
EXAM: CHEST 1 VIEW. HISTORY: Respiratory failure, intubated. COMPARISON: 02/28/2019. FINDINGS: A frontal view of the chest is obtained. An endotracheal tube has its tip 4 cm above the jeremias. A nasogastric tube has its tip below the inferior margin of the view. A small right pleural effusion and right basilar atelectasis have developed in the interval. There is no pneumothorax. The heart is not enlarged. IMPRESSION: 1. Interval development of a small right pleural effusion and right basilar atelectasis. Correlate for mucus plugging. Electronically signed by: Lazaro Mcneil MD (03/01/2019 8:09 AM) [facility] [place]
[2019-03-01 08:43] LABS: BASE EXCESS ABG -1 mmol/L (-3-3); HCO3 ABG 23 mmol/L (21-28); PCO2 ABG 35 mmHg (35-46); PO2 ABG 90 mmHg (85-108); SAT O2 ABG 97 % (92-99)
[2019-03-01 08:45] LABS: FIO2 ABG 40
--- NOTE | 2019-03-01 08:47 | PDOC ---
Infectious Disease Note Subjective Subjective Significant other says he has been more calm and is able recognize her. He's still on sedation and orally intubated, FiO2 35% and sating 98% No fevers last 24 hours ROS ROS unobtainable Vital Sign Vital Signs Vital Signs Date Time Temp Pulse Resp B/P (MAP) Pulse Ox O2 Delivery O2 Flow Rate FiO2 03/01/19 08:21 100 Ventilator 03/01/19 07:00 57 14 113/80 (91) 03/01/19 04:00 99.2 99.2 Physical Exam PHYSICAL EXAM GENERAL: Restless when aroused, mitts HEENT: Pupils equal, ETT and OGT NECK: Supple LUNGS: Clear. HEART: S1, S2 regular. ABDOMEN: BS active, soft, no guarding : Indwelling Mcintosh in place EXTREMITIES: No edema or cyanosis. SCDs in place SKIN: Nonblanching fine macular -type rash on the upper torso/neck and face - slowly fading NEUROLOGIC: Unresponsive to verbal stimuli, moves some to touch PIVs Labs Lab CXR, 03/01 1. Interval development of a small right pleural effusion and right basilar atelectasis. Correlate for mucus plugging. Micro CSF: ([facility] 02/27) AEROBIC CULTURE PENDING AEROBIC RES 1 PENDING GRAM STAIN Final Final report GRAM STAIN RESULT 1 Final Comment No white blood cells seen. GRAM STAIN RESULT 2 Final Comment Moderate number of gram positive cocci. Objective Assessment Meningitis. - LP02/27:: CSF WBC 318, glucose 62, T.protein 164 protein and RBC 50. -[facility] gram stain. ID/susceptibilities pending Fever Leukocytosis - improving New onset seizure History of IV drug use. Acute encephalopathy., confused and disoriented prior to admission Lactic acid is secondary to the seizure, less likely to be septic. Rash involving upper torso/neck and face, fading per family members Plan Plan of Care Vanc and Rocephin Trough 6.6 D/c acyclovir Likely need MRI Procalcitonin <0.10 MRSA screen negative BC neg so far from [facility] Awaiting [facility] ID/susceptibilities - had been on Augmentin so could be partially treated and skewing results of the CSF - Called [facility] again and no new information Monitor rash, improving per family members D/w sig other and "step father" D/w nursing Attending Co-Sign Attending Co-Sign The patient was seen and interviewed as well as examined at the bedside. The chart was reviewed. The case was discussed. Agree with the plan of care. ADRIA RUIZ APRN Mar 01, 2019 08:47 KAMERON FERNANDEZ MD Mar 01, 2019 13:57
[2019-03-01] MEDS: VANCOMYCIN PER PHARMACY MC PRN ×2 (09:41→11:02)
[2019-03-01] MEDS: ENOXAPARIN 40 MG/0.4 ML SYRINGE. SQ SCH (09:55)
[2019-03-01] MEDS: FAMOTIDINE 20 MG/2 ML VIAL IVP SCH ×2 (09:55→20:47)
[2019-03-01] MEDS: cefTRIAXone IV Push 2 GM VIAL. IVP SCH ×2 (09:56→20:48)
[2019-03-01 10:20] LABS: BASO # 0.1 x10^3/uL (0.0-0.2); BASO % 1 % (0-3); EOS # 0.2 x10^3/uL (0.0-0.7); EOS % 3 % (0-3); HEMATOCRIT 36.7 % (39.0-53.0); HEMOGLOBIN 12.5 g/dL (13.0-17.5); LYMPH # 2.5 x10^3/uL (1.0-4.8); LYMPH % 35 % (24-48); MEAN CORPUSCULAR HEMOGLOBIN 30 pg (25-35); MEAN CORPUSCULAR HGB CONC 34 g/dL (31-37); MEAN CORPUSCULAR VOLUME 87 fL (79-100); MONO # 0.8 x10^3/uL (0.0-1.1); MONO % 12 % (0-9); NEUT # 3.6 x10^3uL (1.8-7.7); NEUT % 50 % (31-73); PLATELET COUNT 252 x10^3/uL (140-400); RED BLOOD COUNT 4.22 x10^6/uL (4.30-5.70); RED CELL DISTRIBUTION WIDTH 14.2 % (11.5-14.5); WHITE BLOOD COUNT 7.2 x10^3/uL (4.0-11.0)
[2019-03-01 10:48] LABS: ALBUMIN 2.7 g/dL (3.4-5.0); ALBUMIN/GLOBULIN RATIO 0.8 (1.0-1.7); CALCIUM 8.3 mg/dL (8.5-10.1); CREATININE 0.6 mg/dL (0.7-1.3); GFR 165.5; POTASSIUM 3.8 mmol/L (3.5-5.1); TOTAL BILIRUBIN 0.3 mg/dL (0.2-1.0); TOTAL PROTEIN 5.9 g/dL (6.4-8.2)
[2019-03-01 10:50] LABS: VANC TR 14.2 mcg/mL (10.0-20.0)
[2019-03-01] MEDS: MIDAZOLAM 100mg/100ml NS BAG 100 ML IV PRN ×2 (11:00→20:31)
--- NOTE | 2019-03-01 11:03 | NUR ---
Pharmacy Vancomycin Dosing Note S: Consulted to monitor and dose vancomycin started 02/27/19. O: BERE ABEL is a 23 year old M with Meningitis Other Antibiotics: ROCEPHIN 2G IV Q12HRS ACYCLOVIR 10 MG/KG Q8HRS D/C'D 02/28 LABS: Last BUN: 6 Last Creatinine: 0.6 Creatinine Clearance: > 100 mL/min Last WBC: 9 Last Procalcitonin: <0.1 Tmax (past 24 hours): 99.2 Microbiology: BLOOD CX (02/27) [facility]: PENDING CSF CX (02/27) [facility]: [facility] I/O: 3736/2331 Drug Levels: Last Trough level: 14.2 on 03/01/19 at 0943 Last dose given 03/01/19 at 0114 Vancomycin Dosing: Dosing Weight: Actual Target Trough: 15-20 A: Based on: TROUGH P: 1. CONTINE Vancomycin 1500 mg IV q8h 2. Follow up Trough level in 5 days 3. Pharmacy will continue to monitor, follow and adjust therapy as needed. Savannah Padgett [facility], 03/01/19 [id number]
[2019-03-01 11:57] LABS: BASE EXCESS ABG 2 mmol/L (-3-3); HCO3 ABG 26 mmol/L (21-28); PCO2 ABG 40 mmHg (35-46); PO2 ABG 62 mmHg (85-108); SAT O2 ABG 92 % (92-99)
[2019-03-01] MEDS: IPRATRPIUM/ALBUTEROL 0.5/2.5MG 3 ML NEBU. NEB SCH ×3 (12:37→20:14)
--- NOTE | 2019-03-01 13:29 | NUR ---
Sedation off at 0930. Patient awake and following commands, cpap started at 1115. patient tolerated the trial well. ABG drawn at 1145. However within the time it took to run the abg patient started coughing vigorously, and was throwing up what appeared to be sputum? I was unable to calm the patient down, had to re sedate. Dr Castellanos was called with abg results. Orders to continue with plan of care keep patient sedated and to trial patient in the morning. Patient appears to have a strong gag reflex? Needs a lot of reinforcement not to cough.
[2019-03-02] VITALS (19 sets, daily range): BP systolic 108–135; BP diastolic 49–73
[2019-03-02] MEDS: VANCOMYCIN 1.5 GM in IV NORMAL SALINE 500ML BAG 500 ML IV SCH ×3 (02:28→18:24)
[2019-03-02] MEDS: PROPOFOL 100 ML IV PRN (02:29)
--- NOTE | 2019-03-02 06:56 | PDOC ---
Infectious Disease Note Subjective: Subjective Pt is intubated, sedated No fevers last 24 hours ROS: ROS d/w rn Vital Signs: Vital Signs Vital Signs Date Time Temp Pulse Resp B/P (MAP) Pulse Ox O2 Delivery O2 Flow Rate FiO2 03/02/19 06:04 76 14 111/51 (71) 99 Ventilator 03/02/19 04:00 98.2 98.2 Physical Exam: PHYSICAL EXAM GENERAL: Restless when aroused, mitts HEENT: Pupils equal, ETT and OGT NECK: Supple LUNGS: Clear. HEART: S1, S2 regular. ABDOMEN: BS active, soft, no guarding : Indwelling Mcintosh in place EXTREMITIES: No edema or cyanosis. SCDs in place SKIN: Nonblanching fine macular -type rash on the upper torso/neck and face - slowly fading NEUROLOGIC: Unresponsive to verbal stimuli, moves some to touch PIVs Medications: Inpatient Meds: Current Medications Medications (Trade) Dose Ordered Sig/Parul Start Time Stop Time Status Last Admin Dose Admin Acetaminophen (Tylenol) 1,000 mg PRN Q6HRS PRN 02/27/19 15:45 02/27/19 15:40 1,000 MG Acyclovir Sodium 650 mg/Dextrose 113 ml @ 113 mls/hr Q8HRS 02/27/19 10:00 02/28/19 09:26 DC 02/28/19 06:00 113 MLS/HR Albuterol/ Ipratropium (Duoneb) 3 ml RTQID 03/01/19 10:30 03/01/19 20:14 3 ML Amino Acids/ Glycerin/ Electrolytes 1,000 ml @ 80 mls/hr [id number] 02/27/19 11:00 02/28/19 15:43 DC 02/28/19 01:21 80 MLS/HR Atropine Sulfate (ATROPINE 0.5mg SYRINGE) 0.5 mg PRN Q5MIN PRN 02/28/19 08:30 Ceftriaxone Sodium (Rocephin) 2 gm Q12HR 02/27/19 21:00 03/01/19 20:48 2 GM Dexmedetomidine HCl 200 mcg/ Sodium Chloride 50 ml @ 0 mls/hr CONT PRN 02/28/19 08:30 02/28/19 09:43 0.4 MLS/HR Doxycycline Hyclate 100 mg/ Dextrose 100 ml @ 50 mls/hr Q12HR 02/27/19 09:00 02/27/19 09:36 DC Enoxaparin Sodium (Lovenox 40mg Syringe) 40 mg Q24H 02/28/19 10:00 03/01/19 09:55 40 MG Famotidine (Pepcid Vial) 20 mg BID 02/27/19 21:00 03/01/19 20:47 20 MG Fentanyl Citrate 30 ml @ 0 mls/hr CONT PRN 02/28/19 06:30 02/28/19 09:29 DC Lansoprazole (Prevacid) 30 mg 1X ONCE 02/27/19 13:45 02/27/19 13:46 DC 02/27/19 13:52 30 MG Midazolam HCl 100 ml @ 5 mls/hr CONT PRN 02/27/19 07:30 03/01/19 20:31 5 MLS/HR Non-Formulary Medication 1 ea BID 02/28/19 17:00 03/01/19 21:00 1 EA Norepinephrine Bitartrate 250 ml @ 0 mls/hr CONT PRN 02/27/19 07:30 Ondansetron HCl (Zofran) 4 mg PRN Q6HRS PRN 02/27/19 11:00 Piperacillin Sod/ Tazobactam Sod 3.375 gm/Sodium Chloride 50 ml @ 100 mls/hr Q6HRS 02/27/19 08:00 02/27/19 08:54 DC Potassium Chloride/Water 100 ml @ 100 mls/hr Q1H 02/28/19 11:00 02/28/19 14:59 DC 02/28/19 15:15 100 MLS/HR Propofol 100 ml @ 0 mls/hr CONT PRN 02/27/19 07:30 03/02/19 02:29 2.364 MLS/HR Sodium Chloride 500 ml @ 500 mls/hr 1X PRN PRN 02/28/19 08:30 Vancomycin HCl (Vanco Per Pharmacy) 1 each PRN DAILY PRN 02/27/19 08:45 03/01/19 11:02 1 EACH Vancomycin HCl (Vancomycin Trough Level) 1 each 1X ONCE 02/28/19 08:30 02/28/19 08:31 DC 02/28/19 08:30 1 EACH Vancomycin HCl 1.5 gm/Sodium Chloride 500 ml @ 250 mls/hr Q8H 02/28/19 10:00 03/02/19 02:28 250 MLS/HR Vancomycin HCl 750 mg/Sodium Chloride 250 ml @ 250 mls/hr 1X ONCE 02/27/19 09:30 02/27/19 10:29 DC 02/27/19 09:45 250 MLS/HR Vancomycin HCl 1 gm/Sodium Chloride 250 ml @ 250 mls/hr Q8H 02/27/19 17:00 02/28/19 09:36 DC 02/28/19 00:42 250 MLS/HR Labs: Lab Laboratory Tests Test 03/01/19 08:35 03/01/19 09:43 03/01/19 11:50 O2 Saturation 97 % (92-99) 92 % (92-99) Arterial Blood pH 7.43 (7.35-7.45) 7.43 (7.35-7.45) Arterial Blood pCO2 at Patient Temp 35 mmHg (35-46) 40 mmHg (35-46) Arterial Blood pO2 at Patient Temp 90 mmHg (85-108) 62 mmHg (85-108) Arterial Blood HCO3 23 mmol/L (21-28) 26 mmol/L (21-28) Arterial Blood Base Excess -1 mmol/L (-3-3) 2 mmol/L (-3-3) FiO2 40 40 cpap White Blood Count 7.2 x10^3/uL (4.0-11.0) Red Blood Count 4.22 x10^6/uL (4.30-5.70) Hemoglobin 12.5 g/dL (13.0-17.5) Hematocrit 36.7 % (39.0-53.0) Mean Corpuscular Volume 87 fL (79-100) Mean Corpuscular Hemoglobin 30 pg (25-35) Mean Corpuscular Hemoglobin Concent 34 g/dL (31-37) Red Cell Distribution Width 14.2 % (11.5-14.5) Platelet Count 252 x10^3/uL (140-400) Neutrophils (%) (Auto) 50 % (31-73) Lymphocytes (%) (Auto) 35 % (24-48) Monocytes (%) (Auto) 12 % (0-9) Eosinophils (%) (Auto) 3 % (0-3) Basophils (%) (Auto) 1 % (0-3) Neutrophils # (Auto) 3.6 x10^3uL (1.8-7.7) Lymphocytes # (Auto) 2.5 x10^3/uL (1.0-4.8) Monocytes # (Auto) 0.8 x10^3/uL (0.0-1.1) Eosinophils # (Auto) 0.2 x10^3/uL (0.0-0.7) Basophils # (Auto) 0.1 x10^3/uL (0.0-0.2) Sodium Level 141 mmol/L (136-145) Potassium Level 3.8 mmol/L (3.5-5.1) Chloride Level 106 mmol/L (98-107) Carbon Dioxide Level 29 mmol/L (21-32) Anion Gap 6 (6-14) Blood Urea Nitrogen 9 mg/dL (8-26) Creatinine 0.6 mg/dL (0.7-1.3) Estimated GFR (Cockcroft-Gault) 165.5 BUN/Creatinine Ratio 15 (6-20) Glucose Level 93 mg/dL (70-99) Calcium Level 8.3 mg/dL (8.5-10.1) Total Bilirubin 0.3 mg/dL (0.2-1.0) Aspartate Amino Transf (AST/SGOT) 16 U/L (15-37) Alanine Aminotransferase (ALT/SGPT) 18 U/L (16-63) Alkaline Phosphatase 79 U/L (46-116) Total Protein 5.9 g/dL (6.4-8.2) Albumin 2.7 g/dL (3.4-5.0) Albumin/Globulin Ratio 0.8 (1.0-1.7) Vancomycin Level Trough 14.2 mcg/mL (10.0-20.0) Vancomycin Last Dose Date 03/01/19 Vancomycin Last Dose Time 0200 Micro Micro CSF: ([facility] 02/27) Neg so far Objective: Assessment: Meningitis. - LP02/27:: CSF WBC 318, glucose 62, T.protein 164 protein and RBC 50. -[facility] gram stain. ID/susceptibilities pending CSF Cults neg so far Fever resolving Leukocytosis - improving New onset seizure History of IV drug use. Acute encephalopathy., confused and disoriented prior to admission Lactic acid is secondary to the seizure, less likely to be septic. Rash involving upper torso/neck and face, fading per family members Plan: Plan of Care Vanc and Rocephin Trough 14.2 Off acyclovir 03/01 Likely need MRI Procalcitonin <0.10 MRSA screen negative BC neg so far from [facility] Awaiting [facility] ID/susceptibilities had been on Augmentin so could be partially treated and skewing results of the CSF Monitor rash improving slowly D/w nursing SHIRA WALKER MD Mar 02, 2019 06:56
--- NOTE | 2019-03-02 07:48 | RAD ---
Portable chest, 03/02/2019: HISTORY: Respiratory failure Comparison is made to yesterday's study. The ET tube tip lies well above the jeremias. An NG tube extends into the stomach. The heart size and pulmonary vascularity are normal. The right basilar opacity has partially cleared with better definition of the right hemidiaphragm. No left lung infiltrate or pleural fluid is seen. No new abnormality is detected. IMPRESSION: 1. Satisfactory tube positions. 2. Improving right basilar opacity compatible with resolving atelectasis. Electronically signed by: Farrukh Juarez MD (03/02/2019 7:46 AM) [facility]
[2019-03-02] MEDS: IPRATRPIUM/ALBUTEROL 0.5/2.5MG 3 ML NEBU. NEB SCH ×4 (07:58→19:38)
[2019-03-02] MEDS: cefTRIAXone IV Push 2 GM VIAL. IVP SCH ×2 (08:36→21:14)
[2019-03-02] MEDS: FAMOTIDINE 20 MG/2 ML VIAL IVP SCH ×2 (08:36→21:14)
[2019-03-02 08:37] LABS: BASO % 0 % (0-3); EOS # 0.2 x10^3/uL (0.0-0.7); EOS % 3 % (0-3); HEMATOCRIT 37.8 % (39.0-53.0); HEMOGLOBIN 12.8 g/dL (13.0-17.5); LYMPH # 2.9 x10^3/uL (1.0-4.8); LYMPH % 38 % (24-48); MEAN CORPUSCULAR HEMOGLOBIN 30 pg (25-35); MEAN CORPUSCULAR HGB CONC 34 g/dL (31-37); MEAN CORPUSCULAR VOLUME 87 fL (79-100); MONO # 0.9 x10^3/uL (0.0-1.1); MONO % 11 % (0-9); NEUT # 3.6 x10^3uL (1.8-7.7); NEUT % 47 % (31-73); PLATELET COUNT 266 x10^3/uL (140-400); RED BLOOD COUNT 4.33 x10^6/uL (4.30-5.70); RED CELL DISTRIBUTION WIDTH 14.1 % (11.5-14.5); WHITE BLOOD COUNT 7.7 x10^3/uL (4.0-11.0)
[2019-03-02] MEDS: ENOXAPARIN 40 MG/0.4 ML SYRINGE. SQ SCH (08:37)
[2019-03-02] MEDS: MIDAZOLAM 100mg/100ml NS BAG 100 ML IV PRN (08:38)
--- NOTE | 2019-03-02 08:49 | PDOC ---
PULMONARY PROGRESS NOTES Subjective PT DID WELL ON TRIAL EXTUBATED EARLIER TODAY NOW IN CHAIR NO RESP COMPLAINTS Vitals Vital Signs Date Time Temp Pulse Resp B/P (MAP) Pulse Ox O2 Delivery O2 Flow Rate FiO2 03/02/19 07:47 100 Ventilator 03/02/19 06:04 76 14 111/51 (71) 03/02/19 04:00 98.2 98.2 Lungs: Crackles Cardiovascular: S1, S2 Abdomen: Soft, Non-tender, Other (no mass) Neuro Exam: Alert Extremities: No Edema Skin: Warm Labs Laboratory Tests Test 03/01/19 08:35 03/01/19 09:43 03/01/19 11:50 03/02/19 08:30 O2 Saturation 97 % (92-99) 92 % (92-99) Arterial Blood pH 7.43 (7.35-7.45) 7.43 (7.35-7.45) Arterial Blood pCO2 at Patient Temp 35 mmHg (35-46) 40 mmHg (35-46) Arterial Blood pO2 at Patient Temp 90 mmHg (85-108) 62 mmHg (85-108) Arterial Blood HCO3 23 mmol/L (21-28) 26 mmol/L (21-28) Arterial Blood Base Excess -1 mmol/L (-3-3) 2 mmol/L (-3-3) FiO2 40 40 cpap White Blood Count 7.2 x10^3/uL (4.0-11.0) 7.7 x10^3/uL (4.0-11.0) Red Blood Count 4.22 x10^6/uL (4.30-5.70) 4.33 x10^6/uL (4.30-5.70) Hemoglobin 12.5 g/dL (13.0-17.5) 12.8 g/dL (13.0-17.5) Hematocrit 36.7 % (39.0-53.0) 37.8 % (39.0-53.0) Mean Corpuscular Volume 87 fL (79-100) 87 fL (79-100) Mean Corpuscular Hemoglobin 30 pg (25-35) 30 pg (25-35) Mean Corpuscular Hemoglobin Concent 34 g/dL (31-37) 34 g/dL (31-37) Red Cell Distribution Width 14.2 % (11.5-14.5) 14.1 % (11.5-14.5) Platelet Count 252 x10^3/uL (140-400) 266 x10^3/uL (140-400) Neutrophils (%) (Auto) 50 % (31-73) 47 % (31-73) Lymphocytes (%) (Auto) 35 % (24-48) 38 % (24-48) Monocytes (%) (Auto) 12 % (0-9) 11 % (0-9) Eosinophils (%) (Auto) 3 % (0-3) 3 % (0-3) Basophils (%) (Auto) 1 % (0-3) 0 % (0-3) Neutrophils # (Auto) 3.6 x10^3uL (1.8-7.7) 3.6 x10^3uL (1.8-7.7) Lymphocytes # (Auto) 2.5 x10^3/uL (1.0-4.8) 2.9 x10^3/uL (1.0-4.8) Monocytes # (Auto) 0.8 x10^3/uL (0.0-1.1) 0.9 x10^3/uL (0.0-1.1) Eosinophils # (Auto) 0.2 x10^3/uL (0.0-0.7) 0.2 x10^3/uL (0.0-0.7) Basophils # (Auto) 0.1 x10^3/uL (0.0-0.2) 0.0 x10^3/uL (0.0-0.2) Sodium Level 141 mmol/L (136-145) Potassium Level 3.8 mmol/L (3.5-5.1) Chloride Level 106 mmol/L (98-107) Carbon Dioxide Level 29 mmol/L (21-32) Anion Gap 6 (6-14) Blood Urea Nitrogen 9 mg/dL (8-26) Creatinine 0.6 mg/dL (0.7-1.3) Estimated GFR (Cockcroft-Gault) 165.5 BUN/Creatinine Ratio 15 (6-20) Glucose Level 93 mg/dL (70-99) Calcium Level 8.3 mg/dL (8.5-10.1) Total Bilirubin 0.3 mg/dL (0.2-1.0) Aspartate Amino Transf (AST/SGOT) 16 U/L (15-37) Alanine Aminotransferase (ALT/SGPT) 18 U/L (16-63) Alkaline Phosphatase 79 U/L (46-116) Total Protein 5.9 g/dL (6.4-8.2) Albumin 2.7 g/dL (3.4-5.0) Albumin/Globulin Ratio 0.8 (1.0-1.7) Vancomycin Level Trough 14.2 mcg/mL (10.0-20.0) Vancomycin Last Dose Date 03/01/19 Vancomycin Last Dose Time 0200 Laboratory Tests Test 03/01/19 09:43 03/01/19 11:50 03/02/19 08:30 White Blood Count 7.2 x10^3/uL (4.0-11.0) 7.7 x10^3/uL (4.0-11.0) Red Blood Count 4.22 x10^6/uL (4.30-5.70) 4.33 x10^6/uL (4.30-5.70) Hemoglobin 12.5 g/dL (13.0-17.5) 12.8 g/dL (13.0-17.5) Hematocrit 36.7 % (39.0-53.0) 37.8 % (39.0-53.0) Mean Corpuscular Volume 87 fL (79-100) 87 fL (79-100) Mean Corpuscular Hemoglobin 30 pg (25-35) 30 pg (25-35) Mean Corpuscular Hemoglobin Concent 34 g/dL (31-37) 34 g/dL (31-37) Red Cell Distribution Width 14.2 % (11.5-14.5) 14.1 % (11.5-14.5) Platelet Count 252 x10^3/uL (140-400) 266 x10^3/uL (140-400) Neutrophils (%) (Auto) 50 % (31-73) 47 % (31-73) Lymphocytes (%) (Auto) 35 % (24-48) 38 % (24-48) Monocytes (%) (Auto) 12 % (0-9) 11 % (0-9) Eosinophils (%) (Auto) 3 % (0-3) 3 % (0-3) Basophils (%) (Auto) 1 % (0-3) 0 % (0-3) Neutrophils # (Auto) 3.6 x10^3uL (1.8-7.7) 3.6 x10^3uL (1.8-7.7) Lymphocytes # (Auto) 2.5 x10^3/uL (1.0-4.8) 2.9 x10^3/uL (1.0-4.8) Monocytes # (Auto) 0.8 x10^3/uL (0.0-1.1) 0.9 x10^3/uL (0.0-1.1) Eosinophils # (Auto) 0.2 x10^3/uL (0.0-0.7) 0.2 x10^3/uL (0.0-0.7) Basophils # (Auto) 0.1 x10^3/uL (0.0-0.2) 0.0 x10^3/uL (0.0-0.2) Sodium Level 141 mmol/L (136-145) Potassium Level 3.8 mmol/L (3.5-5.1) Chloride Level 106 mmol/L (98-107) Carbon Dioxide Level 29 mmol/L (21-32) Anion Gap 6 (6-14) Blood Urea Nitrogen 9 mg/dL (8-26) Creatinine 0.6 mg/dL (0.7-1.3) Estimated GFR (Cockcroft-Gault) 165.5 BUN/Creatinine Ratio 15 (6-20) Glucose Level 93 mg/dL (70-99) Calcium Level 8.3 mg/dL (8.5-10.1) Total Bilirubin 0.3 mg/dL (0.2-1.0) Aspartate Amino Transf (AST/SGOT) 16 U/L (15-37) Alanine Aminotransferase (ALT/SGPT) 18 U/L (16-63) Alkaline Phosphatase 79 U/L (46-116) Total Protein 5.9 g/dL (6.4-8.2) Albumin 2.7 g/dL (3.4-5.0) Albumin/Globulin Ratio 0.8 (1.0-1.7) Vancomycin Level Trough 14.2 mcg/mL (10.0-20.0) Vancomycin Last Dose Date 03/01/19 Vancomycin Last Dose Time 0200 O2 Saturation 92 % (92-99) Arterial Blood pH 7.43 (7.35-7.45) Arterial Blood pCO2 at Patient Temp 40 mmHg (35-46) Arterial Blood pO2 at Patient Temp 62 mmHg (85-108) Arterial Blood HCO3 26 mmol/L (21-28) Arterial Blood Base Excess 2 mmol/L (-3-3) FiO2 40 cpap Medications Active Scripts Medications Dose Route/Sig Max Daily Dose Days Date Category Suboxone 8 Mg-2 Mg Sl Film (Buprenorphine Hcl/Naloxone Hcl) 1 Each Film 1 Strip SL BID PRN 02/28/19 Reported Impression . IMPRESSION: 1. Acute hypoxemic respiratory failure, multifactorial. 2. Opiate dependent, presents with toxic metabolic encephalopathy. 3. Toxic metabolic encephalopathy. 4. bacterial meningitis/encephalitis, 5. History of depression and anxiety. 6. Chronic obstructive pulmonary disease. 7. Tobacco dependence. 8. abnl cxr, basilar atelectasis, small effusion, add BD Plan . EXTUBATED 03/02 FOLLOW ID REC DVT AND GI PROPH NPO FOR NOW SPEECH TO EVALUATED PT ROXANN RENDON MD Mar 02, 2019 08:49
[2019-03-02 08:59] LABS: ALBUMIN 2.8 g/dL (3.4-5.0); ALBUMIN/GLOBULIN RATIO 0.7 (1.0-1.7); CALCIUM 8.9 mg/dL (8.5-10.1); CREATININE 0.6 mg/dL (0.7-1.3); GFR 165.5; POTASSIUM 3.6 mmol/L (3.5-5.1); TOTAL BILIRUBIN 0.3 mg/dL (0.2-1.0); TOTAL PROTEIN 6.8 g/dL (6.4-8.2)
[2019-03-02] MEDS ORDERED: ACETAMINOPHEN 650 MG/20.3 ML SOLUTION. PEG PRN (09:15)
[2019-03-02 09:55] LABS: BASE EXCESS ABG 2 mmol/L (-3-3); HCO3 ABG 26 mmol/L (21-28); PCO2 ABG 41 mmHg (35-46); PO2 ABG 97 mmHg (85-108); SAT O2 ABG 97 % (92-99)
[2019-03-02 10:28] LABS: FIO2 ABG 40
--- NOTE | 2019-03-02 10:40 | NUR ---
Patient tolerated weaning process. Blood gases were drawn and called to Dr. Villaseñor. Patient was extubated without difficulty. 2.L NC for comfort of patient.
--- NOTE | 2019-03-02 11:34 | PDOC ---
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 HEART: S1, S2 regular. ABDOMEN: BS active, soft, no guarding : Indwelling Mcintosh in place EXTREMITIES: No edema or cyanosis. SCDs in place SKIN: Nonblanching fine macular -type rash on the upper torso/neck and face - slowly fading NEUROLOGIC: Unresponsive to verbal stimuli, moves some to touch PIVs General: Other (Sedated on vent) Heart: Regular rate, Normal S1, Normal S2 Lungs: Clear, Other (dull on r base) Abdomen: Normal bowel sounds, Soft, No tenderness, No hepatosplenomegaly, No masses Extremities: No clubbing, No cyanosis, No edema, Normal pulses, No tenderness/swelling Skin: Other (Diffuse petechial rash on chest, multiple scars on both arms) Labs LABS Laboratory Tests Test 03/01/19 11:50 03/02/19 08:30 03/02/19 09:52 O2 Saturation 92 % (92-99) 97 % (92-99) Arterial Blood pH 7.43 (7.35-7.45) 7.43 (7.35-7.45) Arterial Blood pCO2 at Patient Temp 40 mmHg (35-46) 41 mmHg (35-46) Arterial Blood pO2 at Patient Temp 62 mmHg (85-108) 97 mmHg (85-108) Arterial Blood HCO3 26 mmol/L (21-28) 26 mmol/L (21-28) Arterial Blood Base Excess 2 mmol/L (-3-3) 2 mmol/L (-3-3) FiO2 40 cpap 40 White Blood Count 7.7 x10^3/uL (4.0-11.0) Red Blood Count 4.33 x10^6/uL (4.30-5.70) Hemoglobin 12.8 g/dL (13.0-17.5) Hematocrit 37.8 % (39.0-53.0) Mean Corpuscular Volume 87 fL (79-100) Mean Corpuscular Hemoglobin 30 pg (25-35) Mean Corpuscular Hemoglobin Concent 34 g/dL (31-37) Red Cell Distribution Width 14.1 % (11.5-14.5) Platelet Count 266 x10^3/uL (140-400) Neutrophils (%) (Auto) 47 % (31-73) Lymphocytes (%) (Auto) 38 % (24-48) Monocytes (%) (Auto) 11 % (0-9) Eosinophils (%) (Auto) 3 % (0-3) Basophils (%) (Auto) 0 % (0-3) Neutrophils # (Auto) 3.6 x10^3uL (1.8-7.7) Lymphocytes # (Auto) 2.9 x10^3/uL (1.0-4.8) Monocytes # (Auto) 0.9 x10^3/uL (0.0-1.1) Eosinophils # (Auto) 0.2 x10^3/uL (0.0-0.7) Basophils # (Auto) 0.0 x10^3/uL (0.0-0.2) Sodium Level 143 mmol/L (136-145) Potassium Level 3.6 mmol/L (3.5-5.1) Chloride Level 105 mmol/L (98-107) Carbon Dioxide Level 30 mmol/L (21-32) Anion Gap 8 (6-14) Blood Urea Nitrogen 8 mg/dL (8-26) Creatinine 0.6 mg/dL (0.7-1.3) Estimated GFR (Cockcroft-Gault) 165.5 BUN/Creatinine Ratio 13 (6-20) Glucose Level 99 mg/dL (70-99) Calcium Level 8.9 mg/dL (8.5-10.1) Total Bilirubin 0.3 mg/dL (0.2-1.0) Aspartate Amino Transf (AST/SGOT) 21 U/L (15-37) Alanine Aminotransferase (ALT/SGPT) 23 U/L (16-63) Alkaline Phosphatase 99 U/L (46-116) Total Protein 6.8 g/dL (6.4-8.2) Albumin 2.8 g/dL (3.4-5.0) Albumin/Globulin Ratio 0.7 (1.0-1.7) Review of Systems Review of Systems Intubated hence limited ROS Comment Review of Relevant I have reviewed the following items kaye (where applicable) has been applied. Labs Laboratory Tests Test 03/01/19 08:35 03/01/19 09:43 03/01/19 11:50 03/02/19 08:30 O2 Saturation 97 % (92-99) 92 % (92-99) Arterial Blood pH 7.43 (7.35-7.45) 7.43 (7.35-7.45) Arterial Blood pCO2 at Patient Temp 35 mmHg (35-46) 40 mmHg (35-46) Arterial Blood pO2 at Patient Temp 90 mmHg (85-108) 62 mmHg (85-108) Arterial Blood HCO3 23 mmol/L (21-28) 26 mmol/L (21-28) Arterial Blood Base Excess -1 mmol/L (-3-3) 2 mmol/L (-3-3) FiO2 40 40 cpap White Blood Count 7.2 x10^3/uL (4.0-11.0) 7.7 x10^3/uL (4.0-11.0) Red Blood Count 4.22 x10^6/uL (4.30-5.70) 4.33 x10^6/uL (4.30-5.70) Hemoglobin 12.5 g/dL (13.0-17.5) 12.8 g/dL (13.0-17.5) Hematocrit 36.7 % (39.0-53.0) 37.8 % (39.0-53.0) Mean Corpuscular Volume 87 fL (79-100) 87 fL (79-100) Mean Corpuscular Hemoglobin 30 pg (25-35) 30 pg (25-35) Mean Corpuscular Hemoglobin Concent 34 g/dL (31-37) 34 g/dL (31-37) Red Cell Distribution Width 14.2 % (11.5-14.5) 14.1 % (11.5-14.5) Platelet Count 252 x10^3/uL (140-400) 266 x10^3/uL (140-400) Neutrophils (%) (Auto) 50 % (31-73) 47 % (31-73) Lymphocytes (%) (Auto) 35 % (24-48) 38 % (24-48) Monocytes (%) (Auto) 12 % (0-9) 11 % (0-9) Eosinophils (%) (Auto) 3 % (0-3) 3 % (0-3) Basophils (%) (Auto) 1 % (0-3) 0 % (0-3) Neutrophils # (Auto) 3.6 x10^3uL (1.8-7.7) 3.6 x10^3uL (1.8-7.7) Lymphocytes # (Auto) 2.5 x10^3/uL (1.0-4.8) 2.9 x10^3/uL (1.0-4.8) Monocytes # (Auto) 0.8 x10^3/uL (0.0-1.1) 0.9 x10^3/uL (0.0-1.1) Eosinophils # (Auto) 0.2 x10^3/uL (0.0-0.7) 0.2 x10^3/uL (0.0-0.7) Basophils # (Auto) 0.1 x10^3/uL (0.0-0.2) 0.0 x10^3/uL (0.0-0.2) Sodium Level 141 mmol/L (136-145) 143 mmol/L (136-145) Potassium Level 3.8 mmol/L (3.5-5.1) 3.6 mmol/L (3.5-5.1) Chloride Level 106 mmol/L (98-107) 105 mmol/L (98-107) Carbon Dioxide Level 29 mmol/L (21-32) 30 mmol/L (21-32) Anion Gap 6 (6-14) 8 (6-14) Blood Urea Nitrogen 9 mg/dL (8-26) 8 mg/dL (8-26) Creatinine 0.6 mg/dL (0.7-1.3) 0.6 mg/dL (0.7-1.3) Estimated GFR (Cockcroft-Gault) 165.5 165.5 BUN/Creatinine Ratio 15 (6-20) 13 (6-20) Glucose Level 93 mg/dL (70-99) 99 mg/dL (70-99) Calcium Level 8.3 mg/dL (8.5-10.1) 8.9 mg/dL (8.5-10.1) Total Bilirubin 0.3 mg/dL (0.2-1.0) 0.3 mg/dL (0.2-1.0) Aspartate Amino Transf (AST/SGOT) 16 U/L (15-37) 21 U/L (15-37) Alanine Aminotransferase (ALT/SGPT) 18 U/L (16-63) 23 U/L (16-63) Alkaline Phosphatase 79 U/L (46-116) 99 U/L (46-116) Total Protein 5.9 g/dL (6.4-8.2) 6.8 g/dL (6.4-8.2) Albumin 2.7 g/dL (3.4-5.0) 2.8 g/dL (3.4-5.0) Albumin/Globulin Ratio 0.8 (1.0-1.7) 0.7 (1.0-1.7) Vancomycin Level Trough 14.2 mcg/mL (10.0-20.0) Vancomycin Last Dose Date 03/01/19 Vancomycin Last Dose Time 0200 Test 03/02/19 09:52 O2 Saturation 97 % (92-99) Arterial Blood pH 7.43 (7.35-7.45) Arterial Blood pCO2 at Patient Temp 41 mmHg (35-46) Arterial Blood pO2 at Patient Temp 97 mmHg (85-108) Arterial Blood HCO3 26 mmol/L (21-28) Arterial Blood Base Excess 2 mmol/L (-3-3) FiO2 40 Laboratory Tests Test 03/01/19 11:50 03/02/19 08:30 03/02/19 09:52 O2 Saturation 92 % (92-99) 97 % (92-99) Arterial Blood pH 7.43 (7.35-7.45) 7.43 (7.35-7.45) Arterial Blood pCO2 at Patient Temp 40 mmHg (35-46) 41 mmHg (35-46) Arterial Blood pO2 at Patient Temp 62 mmHg (85-108) 97 mmHg (85-108) Arterial Blood HCO3 26 mmol/L (21-28) 26 mmol/L (21-28) Arterial Blood Base Excess 2 mmol/L (-3-3) 2 mmol/L (-3-3) FiO2 40 cpap 40 White Blood Count 7.7 x10^3/uL (4.0-11.0) Red Blood Count 4.33 x10^6/uL (4.30-5.70) Hemoglobin 12.8 g/dL (13.0-17.5) Hematocrit 37.8 % (39.0-53.0) Mean Corpuscular Volume 87 fL (79-100) Mean Corpuscular Hemoglobin 30 pg (25-35) Mean Corpuscular Hemoglobin Concent 34 g/dL (31-37) Red Cell Distribution Width 14.1 % (11.5-14.5) Platelet Count 266 x10^3/uL (140-400) Neutrophils (%) (Auto) 47 % (31-73) Lymphocytes (%) (Auto) 38 % (24-48) Monocytes (%) (Auto) 11 % (0-9) Eosinophils (%) (Auto) 3 % (0-3) Basophils (%) (Auto) 0 % (0-3) Neutrophils # (Auto) 3.6 x10^3uL (1.8-7.7) Lymphocytes # (Auto) 2.9 x10^3/uL (1.0-4.8) Monocytes # (Auto) 0.9 x10^3/uL (0.0-1.1) Eosinophils # (Auto) 0.2 x10^3/uL (0.0-0.7) Basophils # (Auto) 0.0 x10^3/uL (0.0-0.2) Sodium Level 143 mmol/L (136-145) Potassium Level 3.6 mmol/L (3.5-5.1) Chloride Level 105 mmol/L (98-107) Carbon Dioxide Level 30 mmol/L (21-32) Anion Gap 8 (6-14) Blood Urea Nitrogen 8 mg/dL (8-26) Creatinine 0.6 mg/dL (0.7-1.3) Estimated GFR (Cockcroft-Gault) 165.5 BUN/Creatinine Ratio 13 (6-20) Glucose Level 99 mg/dL (70-99) Calcium Level 8.9 mg/dL (8.5-10.1) Total Bilirubin 0.3 mg/dL (0.2-1.0) Aspartate Amino Transf (AST/SGOT) 21 U/L (15-37) Alanine Aminotransferase (ALT/SGPT) 23 U/L (16-63) Alkaline Phosphatase 99 U/L (46-116) Total Protein 6.8 g/dL (6.4-8.2) Albumin 2.8 g/dL (3.4-5.0) Albumin/Globulin Ratio 0.7 (1.0-1.7) Medications Current Medications Propofol 100 ml @ As Directed STK-MED ONCE IV ; Start 02/27/19 at 07:28; Stop 02/27/19 at 07:29; Status DC Midazolam HCl 100 ml @ 5 mls/hr CONT PRN IV SEE I/O RECORD Last administered on 03/01/19at 11:00; Start 02/27/19 at 07:30; Stop 03/02/19 at 10:45; Status DC Propofol 100 ml @ 0 mls/hr CONT PRN IV SEE I/O RECORD Last administered on 03/02/19at 02:29; Start 02/27/19 at 07:30; Stop 03/02/19 at 10:45; Status DC Doxycycline Hyclate 100 mg/ Dextrose 100 ml @ 50 mls/hr Q12HR IV ; Start 02/27/19 at 09:00; Stop 02/27/19 at 09:36; Status DC Piperacillin Sod/ Tazobactam Sod 3.375 gm/Sodium Chloride 50 ml @ 100 mls/hr Q6HRS IV ; Start 02/27/19 at 08:00; Stop 02/27/19 at 08:54; Status DC Sodium Chloride 1,000 ml @ 2,130 mls/hr Q29M IV Last administered on 02/27/19at 09:36; Start 02/27/19 at 07:24; Stop 02/27/19 at 08:24; Status DC Norepinephrine Bitartrate 250 ml @ 0 mls/hr CONT PRN IV SEE I/O RECORD; Start 02/27/19 at 07:30; Stop 03/02/19 at 10:45; Status DC Ceftriaxone Sodium (Rocephin) 2 gm Q24H IVP ; Start 02/27/19 at 09:00; Stop 02/27/19 at 09:00; Status DC Vancomycin HCl 1.5 gm/Sodium Chloride 500 ml @ 250 mls/hr Q12H IV ; Start 02/27/19 at 08:30; Stop 02/27/19 at 08:56; Status DC Ceftriaxone Sodium (Rocephin) 2 gm Q24H IVP ; Start 02/27/19 at 21:00; Stop 02/27/19 at 21:00; Status DC Vancomycin HCl (Vanco Per Pharmacy) 1 each PRN DAILY PRN MC SEE COMMENTS Last administered on 03/01/19at 11:02; Start 02/27/19 at 08:45 Vancomycin HCl 750 mg/Sodium Chloride 250 ml @ 250 mls/hr 1X ONCE IV Last administered on 02/27/19at 09:45; Start 02/27/19 at 09:30; Stop 02/27/19 at 10:29; Status DC Ceftriaxone Sodium (Rocephin) 1 gm 1X ONCE IVP Last administered on 02/27/19at 09:38; Start 02/27/19 at 09:00; Stop 02/27/19 at 09:01; Status DC Acyclovir Sodium 650 mg/Dextrose 113 ml @ 113 mls/hr Q8HRS IV Last administered on 02/28/19at 06:00; Start 02/27/19 at 10:00; Stop 02/28/19 at 09:26; Status DC Vancomycin HCl 1 gm/Sodium Chloride 250 ml @ 250 mls/hr Q8H IV Last administered on 02/28/19at 00:42; Start 02/27/19 at 17:00; Stop 02/28/19 at 09:36; Status DC Vancomycin HCl (Vancomycin Trough Level) 1 each 1X ONCE MC Last administered on 02/28/19at 08:30; Start 02/28/19 at 08:30; Stop 02/28/19 at 08:31; Status DC Ondansetron HCl (Zofran) 4 mg PRN Q6HRS PRN IV NAUSEA/VOMITING; Start 02/27/19 at 11:00 Famotidine (Pepcid Vial) 20 mg BID IVP Last administered on 03/02/19at 08:36; Start 02/27/19 at 21:00 Amino Acids/ Glycerin/ Electrolytes 1,000 ml @ 80 mls/hr [id number] IV Last administered on 02/28/19at 01:21; Start 02/27/19 at 11:00; Stop 02/28/19 at 15:43; Status DC Ceftriaxone Sodium (Rocephin) 2 gm Q12HR IVP Last administered on 03/02/19at 08:36; Start 02/27/19 at 21:00 Lansoprazole (Prevacid) 30 mg 1X ONCE FT Last administered on 02/27/19at 13:52; Start 02/27/19 at 13:45; Stop 02/27/19 at 13:46; Status DC Acetaminophen (Tylenol) 1,000 mg PRN Q6HRS PRN PO FEVER Last administered on 02/27/19at 15:40; Start 02/27/19 at 15:45 Fentanyl Citrate 30 ml @ 0 mls/hr CONT PRN IV SEE PROTOCOL; Start 02/28/19 at 06:30; Stop 02/28/19 at 09:29; Status DC Dexmedetomidine HCl 200 mcg/ Sodium Chloride 50 ml @ 0 mls/hr CONT PRN IV PER PROTOCOL Last administered on 02/28/19at 09:43; Start 02/28/19 at 08:30; Stop 03/02/19 at 10:45; Status DC Sodium Chloride 500 ml @ 500 mls/hr 1X PRN PRN IV SEE COMMENTS; Start 02/28/19 at 08:30; Stop 03/02/19 at 10:45; Status DC Atropine Sulfate (ATROPINE 0.5mg SYRINGE) 0.5 mg PRN Q5MIN PRN IV SEE COMMENTS; Start 02/28/19 at 08:30; Stop 03/02/19 at 10:45; Status DC Enoxaparin Sodium (Lovenox 40mg Syringe) 40 mg Q24H SQ Last administered on 03/02/19at 08:37; Start 02/28/19 at 10:00 Vancomycin HCl 1.5 gm/Sodium Chloride 500 ml @ 250 mls/hr Q8H IV Last administered on 03/02/19at 09:19; Start 02/28/19 at 10:00 Potassium Chloride/Water 100 ml @ 100 mls/hr Q1H IV Last administered on 02/28/19at 15:15; Start 02/28/19 at 11:00; Stop 02/28/19 at 14:59; Status DC Non-Formulary Medication 1 ea BID SL Last administered on 03/02/19at 08:37; Start 02/28/19 at 17:00 Albuterol/ Ipratropium (Duoneb) 3 ml RTQID NEB Last administered on 03/02/19at 07:58; Start 03/01/19 at 10:30 Acetaminophen (Tylenol) 650 mg PRN Q6HRS PRN PEG MILD PAIN / TEMP; Start 03/02/19 at 09:15 Active Scripts Active Reported Suboxone 8 Mg-2 Mg Sl Film (Buprenorphine Hcl/Naloxone Hcl) 1 Each Film 1 Strip SL BID PRN Vitals/I & O Vital Sign - Last 24 Hours 03/01/19 03/01/19 03/01/19 03/01/19 12:00 12:00 13:00 14:00 Temp 98.9 98.9 Pulse 96 94 63 Resp 45 13 14 B/P (MAP) 138/78 (98) 103/53 (70) 110/58 (75) Pulse Ox 92 94 100 O2 Delivery Ventilator Mechanical Ventilator Ventilator Ventilator 03/01/19 03/01/19 03/01/19 03/01/19 15:00 15:13 16:00 16:00 Temp 98.6 98.6 Pulse 70 72 Resp 14 14 B/P (MAP) 114/56 (75) 114/57 (76) Pulse Ox 100 100 100 O2 Delivery Ventilator Ventilator Mechanical Ventilator Ventilator 03/01/19 03/01/19 03/01/19 03/01/19 17:00 17:39 18:00 19:50 Pulse 59 66 63 Resp 14 14 14 B/P (MAP) 118/59 (78) 115/65 (82) 114/55 (74) Pulse Ox 100 100 100 99 O2 Delivery Ventilator Ventilator Ventilator Ventilator 03/01/19 03/01/19 03/01/19 03/01/19 20:00 20:00 20:15 21:00 Temp 98.2 98.2 Pulse 57 67 Resp 14 17 B/P (MAP) 123/67 (85) 128/64 (85) Pulse Ox 100 100 100 O2 Delivery Ventilator Mechanical Ventilator Ventilator Ventilator 03/01/19 03/01/19 03/01/19 03/01/19 22:00 23:00 23:59 23:59 Temp 97.3 97.3 Pulse 77 68 62 Resp 17 17 17 B/P (MAP) 129/69 (89) 125/68 (87) 111/46 (67) Pulse Ox 98 98 100 O2 Delivery Ventilator Ventilator Mechanical Ventilator Ventilator 03/02/19 03/02/19 03/02/19 03/02/19 00:00 01:00 02:00 02:07 Pulse 62 72 Resp 14 17 B/P (MAP) 109/52 (71) 108/60 (76) Pulse Ox 100 99 100 100 O2 Delivery Ventilator Ventilator Ventilator Ventilator 03/02/19 03/02/19 03/02/19 03/02/19 03:00 03:53 04:00 04:00 Temp 98.2 98.2 Pulse 62 68 Resp 18 17 B/P (MAP) 109/52 (71) 114/49 (70) Pulse Ox 100 100 100 O2 Delivery Ventilator Ventilator Ventilator Mechanical Ventilator 03/02/19 03/02/19 03/02/19 03/02/19 05:00 06:02 06:04 07:00 Temp 98.4 98.4 Pulse 62 76 72 Resp 18 14 14 B/P (MAP) 114/56 (75) 111/51 (71) 109/55 (73) Pulse Ox 100 100 99 99 O2 Delivery Ventilator Ventilator Ventilator Ventilator 03/02/19 03/02/19 03/02/19 03/02/19 07:47 08:00 08:00 09:00 Pulse 68 80 Resp 14 14 B/P (MAP) 128/68 (88) 126/60 (82) Pulse Ox 100 99 99 O2 Delivery Ventilator Ventilator Mechanical Ventilator Ventilator 03/02/19 03/02/19 03/02/19 09:10 10:00 11:18 Pulse 76 74 Resp 14 14 B/P (MAP) 130/64 (86) 133/64 (87) Pulse Ox 99 99 99 O2 Delivery Ventilator Ventilator Ventilator Intake and Output 03/01/19 03/01/19 03/02/19 14:59 22:59 06:59 Intake Total 750 ml 1286.59 ml 382 ml Output Total 2105 ml 590 ml 475 ml Balance -1355 ml 696.59 ml -93 ml Nutrition Consultation Dietary Evaluation: Recommendations by RD: Increase Calorie Intake, PPN/TPN Comments: REC continue PPN for short-term non-oral, parental nutrition at this time When able pending GI status, recommend TF per following: VitalAF@goal rate 45 ml/hr w/125 ml water flushes q4 hrs or flushes per MD Expected Outcomes/Goals: Nutrition support to meet >75% est nutrition needs while pt remains intubated Interpretation of weight loss: >5% in 1 month Malnutrition Findings: Food and Nutrition Intake (Sev: <50% est energy req 5days Weight Status: Appropriate NOEL FRAZIER MD Mar 02, 2019 11:34
--- NOTE | 2019-03-02 12:47 | NUR ---
SS following up with discharge planning. Pt extubated and currently requiring oxygen. PT/OT ordered. SS will await PT/OT evaluations and recommendations and will proceed accordingly.
[2019-03-02] MEDS: VANCOMYCIN PER PHARMACY MC PRN (13:03)
[2019-03-02] MEDS ORDERED: HALOPERIDOL LACTATE 5 MG/ML VIAL. IVP PRN (22:15)
[2019-03-02] MEDS ORDERED: MORPHINE SULFATE 2 MG/ML VIAL. IV PRN (22:15)
[2019-03-03] VITALS (13 sets, daily range): BP systolic 119–135; BP diastolic 62–82
[2019-03-03] MEDS: VANCOMYCIN 1.5 GM in IV NORMAL SALINE 500ML BAG 500 ML IV SCH ×3 (02:10→18:15)
[2019-03-03 04:36] LABS: BASO # 0.1 x10^3/uL (0.0-0.2); BASO % 1 % (0-3); EOS # 0.1 x10^3/uL (0.0-0.7); EOS % 1 % (0-3); HEMOGLOBIN 11.8 g/dL (13.0-17.5); LYMPH # 2.4 x10^3/uL (1.0-4.8); LYMPH % 25 % (24-48); MEAN CORPUSCULAR HEMOGLOBIN 30 pg (25-35); MEAN CORPUSCULAR HGB CONC 34 g/dL (31-37); MEAN CORPUSCULAR VOLUME 87 fL (79-100); MONO # 0.7 x10^3/uL (0.0-1.1); MONO % 7 % (0-9); NEUT # 6.3 x10^3uL (1.8-7.7); NEUT % 66 % (31-73); PLATELET COUNT 283 x10^3/uL (140-400); RED CELL DISTRIBUTION WIDTH 13.7 % (11.5-14.5); WHITE BLOOD COUNT 9.5 x10^3/uL (4.0-11.0)
[2019-03-03 05:03] LABS: CALCIUM 8.8 mg/dL (8.5-10.1); CREATININE 0.6 mg/dL (0.7-1.3); GFR 165.5; POTASSIUM 4.1 mmol/L (3.5-5.1)
--- NOTE | 2019-03-03 06:53 | PDOC ---
Infectious Disease Note Subjective: Subjective Pt extubated 03/02 No fevers last 24 hours says has no headache some neck stiffness but improving had nausea and vomiting x2 yesterday ROS: ROS Negative except for above. Vital Signs: Vital Signs Vital Signs Date Time Temp Pulse Resp B/P (MAP) Pulse Ox O2 Delivery O2 Flow Rate FiO2 03/03/19 06:00 55 16 127/70 (89) 97 Room Air 03/03/19 04:00 98.4 98.4 03/02/19 16:00 3.0 Physical Exam: PHYSICAL EXAM GENERAL: alert awake in nad, comfortable HEENT: Pupils equal, no petechia NECK: Supple LUNGS: Clear. HEART: S1, S2 regular. ABDOMEN: BS active, soft, no guarding : Indwelling Mcintosh in place EXTREMITIES: No edema or cyanosis. SCDs in place SKIN: Nonblanching fine macular -type rash on the upper torso/neck and face - slowly fading NEUROLOGIC: axox3 nonfocal PIVs Medications: Inpatient Meds: Current Medications Medications (Trade) Dose Ordered Sig/Parul Start Time Stop Time Status Last Admin Dose Admin Acetaminophen (Tylenol) 650 mg PRN Q6HRS PRN 03/02/19 09:15 Acyclovir Sodium 650 mg/Dextrose 113 ml @ 113 mls/hr Q8HRS 02/27/19 10:00 02/28/19 09:26 DC 02/28/19 06:00 113 MLS/HR Albuterol/ Ipratropium (Duoneb) 3 ml RTQID 03/01/19 10:30 03/02/19 19:38 3 ML Amino Acids/ Glycerin/ Electrolytes 1,000 ml @ 80 mls/hr [id number] 02/27/19 11:00 02/28/19 15:43 DC 02/28/19 01:21 80 MLS/HR Atropine Sulfate (ATROPINE 0.5mg SYRINGE) 0.5 mg PRN Q5MIN PRN 02/28/19 08:30 03/02/19 10:45 DC Ceftriaxone Sodium (Rocephin) 2 gm Q12HR 02/27/19 21:00 03/02/19 21:14 2 GM Dexmedetomidine HCl 200 mcg/ Sodium Chloride 50 ml @ 0 mls/hr CONT PRN 02/28/19 08:30 03/02/19 10:45 DC 02/28/19 09:43 0.4 MLS/HR Doxycycline Hyclate 100 mg/ Dextrose 100 ml @ 50 mls/hr Q12HR 02/27/19 09:00 02/27/19 09:36 DC Enoxaparin Sodium (Lovenox 40mg Syringe) 40 mg Q24H 02/28/19 10:00 03/02/19 08:37 40 MG Famotidine (Pepcid Vial) 20 mg BID 02/27/19 21:00 03/02/19 21:14 20 MG Fentanyl Citrate 30 ml @ 0 mls/hr CONT PRN 02/28/19 06:30 02/28/19 09:29 DC Haloperidol Lactate (Haldol Inj) 5 mg PRN Q6HRS PRN 03/02/19 22:15 Lansoprazole (Prevacid) 30 mg 1X ONCE 02/27/19 13:45 02/27/19 13:46 DC 02/27/19 13:52 30 MG Lorazepam (Ativan Inj) 2 mg PRN Q4HRS PRN 03/02/19 22:30 Midazolam HCl 100 ml @ 5 mls/hr CONT PRN 02/27/19 07:30 03/02/19 10:45 DC 03/01/19 11:00 5 MLS/HR Morphine Sulfate (Morphine Sulfate) 2 mg PRN Q2HR PRN 03/02/19 22:15 Non-Formulary Medication 1 ea BID 02/28/19 17:00 03/02/19 21:28 1 EA Norepinephrine Bitartrate 250 ml @ 0 mls/hr CONT PRN 02/27/19 07:30 03/02/19 10:45 DC Ondansetron HCl (Zofran) 4 mg PRN Q6HRS PRN 02/27/19 11:00 03/02/19 18:24 4 MG Piperacillin Sod/ Tazobactam Sod 3.375 gm/Sodium Chloride 50 ml @ 100 mls/hr Q6HRS 02/27/19 08:00 02/27/19 08:54 DC Potassium Chloride/Water 100 ml @ 100 mls/hr Q1H 02/28/19 11:00 02/28/19 14:59 DC 02/28/19 15:15 100 MLS/HR Propofol 100 ml @ 0 mls/hr CONT PRN 02/27/19 07:30 03/02/19 10:45 DC 03/02/19 02:29 2.364 MLS/HR Sodium Chloride 500 ml @ 500 mls/hr 1X PRN PRN 02/28/19 08:30 03/02/19 10:45 DC Vancomycin HCl (Vanco Per Pharmacy) 1 each PRN DAILY PRN 02/27/19 08:45 03/02/19 13:03 1 EACH Vancomycin HCl (Vancomycin Trough Level) 1 each 1X ONCE 02/28/19 08:30 02/28/19 08:31 DC 02/28/19 08:30 1 EACH Vancomycin HCl 1.5 gm/Sodium Chloride 500 ml @ 250 mls/hr Q8H 02/28/19 10:00 03/03/19 02:10 250 MLS/HR Vancomycin HCl 750 mg/Sodium Chloride 250 ml @ 250 mls/hr 1X ONCE 02/27/19 09:30 02/27/19 10:29 DC 02/27/19 09:45 250 MLS/HR Vancomycin HCl 1 gm/Sodium Chloride 250 ml @ 250 mls/hr Q8H 02/27/19 17:00 02/28/19 09:36 DC 02/28/19 00:42 250 MLS/HR Labs: Lab Laboratory Tests Test 03/02/19 08:30 03/02/19 09:52 03/03/19 04:15 White Blood Count 7.7 x10^3/uL (4.0-11.0) 9.5 x10^3/uL (4.0-11.0) Red Blood Count 4.33 x10^6/uL (4.30-5.70) 4.00 x10^6/uL (4.30-5.70) Hemoglobin 12.8 g/dL (13.0-17.5) 11.8 g/dL (13.0-17.5) Hematocrit 37.8 % (39.0-53.0) 35.0 % (39.0-53.0) Mean Corpuscular Volume 87 fL (79-100) 87 fL (79-100) Mean Corpuscular Hemoglobin 30 pg (25-35) 30 pg (25-35) Mean Corpuscular Hemoglobin Concent 34 g/dL (31-37) 34 g/dL (31-37) Red Cell Distribution Width 14.1 % (11.5-14.5) 13.7 % (11.5-14.5) Platelet Count 266 x10^3/uL (140-400) 283 x10^3/uL (140-400) Neutrophils (%) (Auto) 47 % (31-73) 66 % (31-73) Lymphocytes (%) (Auto) 38 % (24-48) 25 % (24-48) Monocytes (%) (Auto) 11 % (0-9) 7 % (0-9) Eosinophils (%) (Auto) 3 % (0-3) 1 % (0-3) Basophils (%) (Auto) 0 % (0-3) 1 % (0-3) Neutrophils # (Auto) 3.6 x10^3uL (1.8-7.7) 6.3 x10^3uL (1.8-7.7) Lymphocytes # (Auto) 2.9 x10^3/uL (1.0-4.8) 2.4 x10^3/uL (1.0-4.8) Monocytes # (Auto) 0.9 x10^3/uL (0.0-1.1) 0.7 x10^3/uL (0.0-1.1) Eosinophils # (Auto) 0.2 x10^3/uL (0.0-0.7) 0.1 x10^3/uL (0.0-0.7) Basophils # (Auto) 0.0 x10^3/uL (0.0-0.2) 0.1 x10^3/uL (0.0-0.2) Sodium Level 143 mmol/L (136-145) 140 mmol/L (136-145) Potassium Level 3.6 mmol/L (3.5-5.1) 4.1 mmol/L (3.5-5.1) Chloride Level 105 mmol/L (98-107) 104 mmol/L (98-107) Carbon Dioxide Level 30 mmol/L (21-32) 27 mmol/L (21-32) Anion Gap 8 (6-14) 9 (6-14) Blood Urea Nitrogen 8 mg/dL (8-26) 12 mg/dL (8-26) Creatinine 0.6 mg/dL (0.7-1.3) 0.6 mg/dL (0.7-1.3) Estimated GFR (Cockcroft-Gault) 165.5 165.5 BUN/Creatinine Ratio 13 (6-20) Glucose Level 99 mg/dL (70-99) 97 mg/dL (70-99) Calcium Level 8.9 mg/dL (8.5-10.1) 8.8 mg/dL (8.5-10.1) Total Bilirubin 0.3 mg/dL (0.2-1.0) Aspartate Amino Transf (AST/SGOT) 21 U/L (15-37) Alanine Aminotransferase (ALT/SGPT) 23 U/L (16-63) Alkaline Phosphatase 99 U/L (46-116) Total Protein 6.8 g/dL (6.4-8.2) Albumin 2.8 g/dL (3.4-5.0) Albumin/Globulin Ratio 0.7 (1.0-1.7) O2 Saturation 97 % (92-99) Arterial Blood pH 7.43 (7.35-7.45) Arterial Blood pCO2 at Patient Temp 41 mmHg (35-46) Arterial Blood pO2 at Patient Temp 97 mmHg (85-108) Arterial Blood HCO3 26 mmol/L (21-28) Arterial Blood Base Excess 2 mmol/L (-3-3) FiO2 40 Micro Micro CSF: ([facility] 02/27) Neg so far Objective: Assessment: Meningitis. - 02/27:: CSF WBC 318, glucose 62, T.protein 164 protein and RBC 50. -[facility] gram stain. ID/susceptibilities pending CSF Cults neg so far - had been on Augmentin so could be partially treated and skewing results of the CSF Fever resolving Leukocytosis - improving New onset seizure History of IV drug use. Acute encephalopathy., confused and disoriented prior to admission,now resolved Lactic acid is secondary to the seizure, less likely to be septic. Rash involving upper torso/neck and face, fading per family Plan: Plan of Care Vanc and Rocephin Trough 14.2 Off acyclovir 03/01 Likely need MRI Procalcitonin <0.10 MRSA screen negative BC neg so far from [facility] Awaiting [facility] ID/susceptibilities Monitor rash, improving slowly D/w nursing D/W at bedside SHIRA WALKER MD Mar 03, 2019 06:53
--- NOTE | 2019-03-03 07:55 | RAD ---
Portable chest, 03/03/2019: HISTORY: Respiratory failure Comparison is made to a study from 03/02/2019. The ET tube and NG tube have been removed. The heart size and pulmonary vascularity are normal. The left chest remains clear. There are moderate residual streaky right basilar opacities compatible with atelectasis/infiltrate. This appears to have worsened slightly since yesterday study. A small amount of right-sided pleural fluid cannot be excluded. IMPRESSION: Slight interval worsening of the moderate streaky right basilar opacities. Electronically signed by: Farrukh Juarez MD (03/03/2019 7:52 AM) [facility]
[2019-03-03] MEDS: IPRATRPIUM/ALBUTEROL 0.5/2.5MG 3 ML NEBU. NEB SCH ×4 (08:13→19:40)
[2019-03-03] MEDS: FAMOTIDINE 20 MG/2 ML VIAL IVP SCH (09:00)
--- NOTE | 2019-03-03 09:04 | PDOC ---
PULMONARY PROGRESS NOTES Subjective PT NOW FEELS BETTER WANTS TO GO HOME EATING NO RESP COMPLAINTS EXTUBATED 03/02 Vitals Vital Signs Date Time Temp Pulse Resp B/P (MAP) Pulse Ox O2 Delivery O2 Flow Rate FiO2 03/03/19 08:14 95 Room Air 03/03/19 06:00 55 16 127/70 (89) 03/03/19 04:00 98.4 98.4 03/02/19 16:00 3.0 Lungs: Crackles Cardiovascular: S1, S2 Abdomen: Soft, Non-tender, Other (no mass) Neuro Exam: Alert Extremities: No Edema Skin: Warm Labs Laboratory Tests Test 03/01/19 09:43 03/01/19 11:50 03/02/19 08:30 03/02/19 09:52 White Blood Count 7.2 x10^3/uL (4.0-11.0) 7.7 x10^3/uL (4.0-11.0) Red Blood Count 4.22 x10^6/uL (4.30-5.70) 4.33 x10^6/uL (4.30-5.70) Hemoglobin 12.5 g/dL (13.0-17.5) 12.8 g/dL (13.0-17.5) Hematocrit 36.7 % (39.0-53.0) 37.8 % (39.0-53.0) Mean Corpuscular Volume 87 fL (79-100) 87 fL (79-100) Mean Corpuscular Hemoglobin 30 pg (25-35) 30 pg (25-35) Mean Corpuscular Hemoglobin Concent 34 g/dL (31-37) 34 g/dL (31-37) Red Cell Distribution Width 14.2 % (11.5-14.5) 14.1 % (11.5-14.5) Platelet Count 252 x10^3/uL (140-400) 266 x10^3/uL (140-400) Neutrophils (%) (Auto) 50 % (31-73) 47 % (31-73) Lymphocytes (%) (Auto) 35 % (24-48) 38 % (24-48) Monocytes (%) (Auto) 12 % (0-9) 11 % (0-9) Eosinophils (%) (Auto) 3 % (0-3) 3 % (0-3) Basophils (%) (Auto) 1 % (0-3) 0 % (0-3) Neutrophils # (Auto) 3.6 x10^3uL (1.8-7.7) 3.6 x10^3uL (1.8-7.7) Lymphocytes # (Auto) 2.5 x10^3/uL (1.0-4.8) 2.9 x10^3/uL (1.0-4.8) Monocytes # (Auto) 0.8 x10^3/uL (0.0-1.1) 0.9 x10^3/uL (0.0-1.1) Eosinophils # (Auto) 0.2 x10^3/uL (0.0-0.7) 0.2 x10^3/uL (0.0-0.7) Basophils # (Auto) 0.1 x10^3/uL (0.0-0.2) 0.0 x10^3/uL (0.0-0.2) Sodium Level 141 mmol/L (136-145) 143 mmol/L (136-145) Potassium Level 3.8 mmol/L (3.5-5.1) 3.6 mmol/L (3.5-5.1) Chloride Level 106 mmol/L (98-107) 105 mmol/L (98-107) Carbon Dioxide Level 29 mmol/L (21-32) 30 mmol/L (21-32) Anion Gap 6 (6-14) 8 (6-14) Blood Urea Nitrogen 9 mg/dL (8-26) 8 mg/dL (8-26) Creatinine 0.6 mg/dL (0.7-1.3) 0.6 mg/dL (0.7-1.3) Estimated GFR (Cockcroft-Gault) 165.5 165.5 BUN/Creatinine Ratio 15 (6-20) 13 (6-20) Glucose Level 93 mg/dL (70-99) 99 mg/dL (70-99) Calcium Level 8.3 mg/dL (8.5-10.1) 8.9 mg/dL (8.5-10.1) Total Bilirubin 0.3 mg/dL (0.2-1.0) 0.3 mg/dL (0.2-1.0) Aspartate Amino Transf (AST/SGOT) 16 U/L (15-37) 21 U/L (15-37) Alanine Aminotransferase (ALT/SGPT) 18 U/L (16-63) 23 U/L (16-63) Alkaline Phosphatase 79 U/L (46-116) 99 U/L (46-116) Total Protein 5.9 g/dL (6.4-8.2) 6.8 g/dL (6.4-8.2) Albumin 2.7 g/dL (3.4-5.0) 2.8 g/dL (3.4-5.0) Albumin/Globulin Ratio 0.8 (1.0-1.7) 0.7 (1.0-1.7) Vancomycin Level Trough 14.2 mcg/mL (10.0-20.0) Vancomycin Last Dose Date 03/01/19 Vancomycin Last Dose Time 0200 O2 Saturation 92 % (92-99) 97 % (92-99) Arterial Blood pH 7.43 (7.35-7.45) 7.43 (7.35-7.45) Arterial Blood pCO2 at Patient Temp 40 mmHg (35-46) 41 mmHg (35-46) Arterial Blood pO2 at Patient Temp 62 mmHg (85-108) 97 mmHg (85-108) Arterial Blood HCO3 26 mmol/L (21-28) 26 mmol/L (21-28) Arterial Blood Base Excess 2 mmol/L (-3-3) 2 mmol/L (-3-3) FiO2 40 cpap 40 Test 03/03/19 04:15 White Blood Count 9.5 x10^3/uL (4.0-11.0) Red Blood Count 4.00 x10^6/uL (4.30-5.70) Hemoglobin 11.8 g/dL (13.0-17.5) Hematocrit 35.0 % (39.0-53.0) Mean Corpuscular Volume 87 fL (79-100) Mean Corpuscular Hemoglobin 30 pg (25-35) Mean Corpuscular Hemoglobin Concent 34 g/dL (31-37) Red Cell Distribution Width 13.7 % (11.5-14.5) Platelet Count 283 x10^3/uL (140-400) Neutrophils (%) (Auto) 66 % (31-73) Lymphocytes (%) (Auto) 25 % (24-48) Monocytes (%) (Auto) 7 % (0-9) Eosinophils (%) (Auto) 1 % (0-3) Basophils (%) (Auto) 1 % (0-3) Neutrophils # (Auto) 6.3 x10^3uL (1.8-7.7) Lymphocytes # (Auto) 2.4 x10^3/uL (1.0-4.8) Monocytes # (Auto) 0.7 x10^3/uL (0.0-1.1) Eosinophils # (Auto) 0.1 x10^3/uL (0.0-0.7) Basophils # (Auto) 0.1 x10^3/uL (0.0-0.2) Sodium Level 140 mmol/L (136-145) Potassium Level 4.1 mmol/L (3.5-5.1) Chloride Level 104 mmol/L (98-107) Carbon Dioxide Level 27 mmol/L (21-32) Anion Gap 9 (6-14) Blood Urea Nitrogen 12 mg/dL (8-26) Creatinine 0.6 mg/dL (0.7-1.3) Estimated GFR (Cockcroft-Gault) 165.5 Glucose Level 97 mg/dL (70-99) Calcium Level 8.8 mg/dL (8.5-10.1) Laboratory Tests Test 03/02/19 09:52 03/03/19 04:15 O2 Saturation 97 % (92-99) Arterial Blood pH 7.43 (7.35-7.45) Arterial Blood pCO2 at Patient Temp 41 mmHg (35-46) Arterial Blood pO2 at Patient Temp 97 mmHg (85-108) Arterial Blood HCO3 26 mmol/L (21-28) Arterial Blood Base Excess 2 mmol/L (-3-3) FiO2 40 White Blood Count 9.5 x10^3/uL (4.0-11.0) Red Blood Count 4.00 x10^6/uL (4.30-5.70) Hemoglobin 11.8 g/dL (13.0-17.5) Hematocrit 35.0 % (39.0-53.0) Mean Corpuscular Volume 87 fL (79-100) Mean Corpuscular Hemoglobin 30 pg (25-35) Mean Corpuscular Hemoglobin Concent 34 g/dL (31-37) Red Cell Distribution Width 13.7 % (11.5-14.5) Platelet Count 283 x10^3/uL (140-400) Neutrophils (%) (Auto) 66 % (31-73) Lymphocytes (%) (Auto) 25 % (24-48) Monocytes (%) (Auto) 7 % (0-9) Eosinophils (%) (Auto) 1 % (0-3) Basophils (%) (Auto) 1 % (0-3) Neutrophils # (Auto) 6.3 x10^3uL (1.8-7.7) Lymphocytes # (Auto) 2.4 x10^3/uL (1.0-4.8) Monocytes # (Auto) 0.7 x10^3/uL (0.0-1.1) Eosinophils # (Auto) 0.1 x10^3/uL (0.0-0.7) Basophils # (Auto) 0.1 x10^3/uL (0.0-0.2) Sodium Level 140 mmol/L (136-145) Potassium Level 4.1 mmol/L (3.5-5.1) Chloride Level 104 mmol/L (98-107) Carbon Dioxide Level 27 mmol/L (21-32) Anion Gap 9 (6-14) Blood Urea Nitrogen 12 mg/dL (8-26) Creatinine 0.6 mg/dL (0.7-1.3) Estimated GFR (Cockcroft-Gault) 165.5 Glucose Level 97 mg/dL (70-99) Calcium Level 8.8 mg/dL (8.5-10.1) Medications Active Scripts Medications Dose Route/Sig Max Daily Dose Days Date Category Suboxone 8 Mg-2 Mg Sl Film (Buprenorphine Hcl/Naloxone Hcl) 1 Each Film 1 Strip SL BID PRN 02/28/19 Reported Impression . IMPRESSION: 1. Acute hypoxemic respiratory failure, multifactorial. 2. Opiate dependent, presents with toxic metabolic encephalopathy. 3. Toxic metabolic encephalopathy. 4. bacterial meningitis/encephalitis, 5. History of depression and anxiety. 6. Chronic obstructive pulmonary disease. 7. Tobacco dependence. 8. abnl cxr, basilar atelectasis, small effusion, add BD Plan . HOME SOON OK BY ME EXTUBATED 03/02 FOLLOW ID REC DVT AND GI PROPH ADVANCE DIET PT ROXANN RENDON MD Mar 03, 2019 09:04
[2019-03-03] MEDS: ENOXAPARIN 40 MG/0.4 ML SYRINGE. SQ SCH (10:21)
[2019-03-03] MEDS: VANCOMYCIN PER PHARMACY MC PRN (10:24)
[2019-03-03] MEDS: cefTRIAXone IV Push 2 GM VIAL. IVP SCH ×2 (10:26→21:00)
--- NOTE | 2019-03-03 13:18 | PDOC ---
PROGRESS NOTES Chief Complaint Chief Complaint A/P: bacterial meningitis Acute encephalopathy Respiratory failure extubated 03/02 Severe sepsis Opioid use disorder on Suboxone Hep C, history IV drug use Petechial rash in the back of sepsis History of Present Illness History of Present Illness Extubated 03/02 and has a good voice-passed swallow today He wants to go home today But as per ID note, awaiting [facility] identification sensitivities Still on vancomycin and other IV antibiotics plan: okay transfer out of ICU to NON monitored bed Regular diet Hopefully we get cultures tomorrow so he can go home tomorrow Vitals Vitals Vital Signs Date Time Temp Pulse Resp B/P (MAP) Pulse Ox O2 Delivery O2 Flow Rate FiO2 03/03/19 12:29 96 Room Air 03/03/19 09:00 86 19 03/03/19 08:00 98.5 130/69 (89) 98.5 03/02/19 16:00 3.0 Physical Exam Physical Exam GENERAL: alert awake in nad, comfortable HEENT: Pupils equal, no petechia NECK: Supple LUNGS: Clear. HEART: S1, S2 regular. ABDOMEN: BS active, soft, no guarding : Indwelling Mcintosh in place EXTREMITIES: No edema or cyanosis. SCDs in place SKIN: Nonblanching fine macular -type rash on the upper torso/neck and face - slowly fading NEUROLOGIC: axox3 nonfocal PIVs General: Other (Sedated on vent) Heart: Regular rate, Normal S1, Normal S2 Lungs: Crackles Abdomen: Normal bowel sounds, Soft, No tenderness, No hepatosplenomegaly, No masses Extremities: No clubbing, No cyanosis, No edema, Normal pulses, No tenderness/swelling Skin: Other (Diffuse petechial rash on chest, multiple scars on both arms) Labs LABS Laboratory Tests Test 03/03/19 04:15 White Blood Count 9.5 x10^3/uL (4.0-11.0) Red Blood Count 4.00 x10^6/uL (4.30-5.70) Hemoglobin 11.8 g/dL (13.0-17.5) Hematocrit 35.0 % (39.0-53.0) Mean Corpuscular Volume 87 fL (79-100) Mean Corpuscular Hemoglobin 30 pg (25-35) Mean Corpuscular Hemoglobin Concent 34 g/dL (31-37) Red Cell Distribution Width 13.7 % (11.5-14.5) Platelet Count 283 x10^3/uL (140-400) Neutrophils (%) (Auto) 66 % (31-73) Lymphocytes (%) (Auto) 25 % (24-48) Monocytes (%) (Auto) 7 % (0-9) Eosinophils (%) (Auto) 1 % (0-3) Basophils (%) (Auto) 1 % (0-3) Neutrophils # (Auto) 6.3 x10^3uL (1.8-7.7) Lymphocytes # (Auto) 2.4 x10^3/uL (1.0-4.8) Monocytes # (Auto) 0.7 x10^3/uL (0.0-1.1) Eosinophils # (Auto) 0.1 x10^3/uL (0.0-0.7) Basophils # (Auto) 0.1 x10^3/uL (0.0-0.2) Sodium Level 140 mmol/L (136-145) Potassium Level 4.1 mmol/L (3.5-5.1) Chloride Level 104 mmol/L (98-107) Carbon Dioxide Level 27 mmol/L (21-32) Anion Gap 9 (6-14) Blood Urea Nitrogen 12 mg/dL (8-26) Creatinine 0.6 mg/dL (0.7-1.3) Estimated GFR (Cockcroft-Gault) 165.5 Glucose Level 97 mg/dL (70-99) Calcium Level 8.8 mg/dL (8.5-10.1) Review of Systems Review of Systems A 14 point ROS was completed with the following noted as positive: Other systems reviewed and negative. \CONSTITUTIONAL: No fever or chills EYES: No recent changes SKIN: No rash or itching CARDIOVASCULAR: No chest pain, syncope, palpitations, or edema RESPIRATORY: No SOB or cough GASTROINTESTINAL: No nausea, vomiting or abdominal pain NEUROLOGICAL: No headaches or weakness ENDOCRINE: No cold or heat intolerance GENITOURINARY: No urgency or frequency of urination MUSCULOSKELETAL: No back pain or joint pain LYMPHATICS: No enlarged lymph nodes PSYCHIATRIC: No anxiety or depression Comment Review of Relevant I have reviewed the following items kaye (where applicable) has been applied. Labs Laboratory Tests Test 03/02/19 08:30 03/02/19 09:52 03/03/19 04:15 White Blood Count 7.7 x10^3/uL (4.0-11.0) 9.5 x10^3/uL (4.0-11.0) Red Blood Count 4.33 x10^6/uL (4.30-5.70) 4.00 x10^6/uL (4.30-5.70) Hemoglobin 12.8 g/dL (13.0-17.5) 11.8 g/dL (13.0-17.5) Hematocrit 37.8 % (39.0-53.0) 35.0 % (39.0-53.0) Mean Corpuscular Volume 87 fL (79-100) 87 fL (79-100) Mean Corpuscular Hemoglobin 30 pg (25-35) 30 pg (25-35) Mean Corpuscular Hemoglobin Concent 34 g/dL (31-37) 34 g/dL (31-37) Red Cell Distribution Width 14.1 % (11.5-14.5) 13.7 % (11.5-14.5) Platelet Count 266 x10^3/uL (140-400) 283 x10^3/uL (140-400) Neutrophils (%) (Auto) 47 % (31-73) 66 % (31-73) Lymphocytes (%) (Auto) 38 % (24-48) 25 % (24-48) Monocytes (%) (Auto) 11 % (0-9) 7 % (0-9) Eosinophils (%) (Auto) 3 % (0-3) 1 % (0-3) Basophils (%) (Auto) 0 % (0-3) 1 % (0-3) Neutrophils # (Auto) 3.6 x10^3uL (1.8-7.7) 6.3 x10^3uL (1.8-7.7) Lymphocytes # (Auto) 2.9 x10^3/uL (1.0-4.8) 2.4 x10^3/uL (1.0-4.8) Monocytes # (Auto) 0.9 x10^3/uL (0.0-1.1) 0.7 x10^3/uL (0.0-1.1) Eosinophils # (Auto) 0.2 x10^3/uL (0.0-0.7) 0.1 x10^3/uL (0.0-0.7) Basophils # (Auto) 0.0 x10^3/uL (0.0-0.2) 0.1 x10^3/uL (0.0-0.2) Sodium Level 143 mmol/L (136-145) 140 mmol/L (136-145) Potassium Level 3.6 mmol/L (3.5-5.1) 4.1 mmol/L (3.5-5.1) Chloride Level 105 mmol/L (98-107) 104 mmol/L (98-107) Carbon Dioxide Level 30 mmol/L (21-32) 27 mmol/L (21-32) Anion Gap 8 (6-14) 9 (6-14) Blood Urea Nitrogen 8 mg/dL (8-26) 12 mg/dL (8-26) Creatinine 0.6 mg/dL (0.7-1.3) 0.6 mg/dL (0.7-1.3) Estimated GFR (Cockcroft-Gault) 165.5 165.5 BUN/Creatinine Ratio 13 (6-20) Glucose Level 99 mg/dL (70-99) 97 mg/dL (70-99) Calcium Level 8.9 mg/dL (8.5-10.1) 8.8 mg/dL (8.5-10.1) Total Bilirubin 0.3 mg/dL (0.2-1.0) Aspartate Amino Transf (AST/SGOT) 21 U/L (15-37) Alanine Aminotransferase (ALT/SGPT) 23 U/L (16-63) Alkaline Phosphatase 99 U/L (46-116) Total Protein 6.8 g/dL (6.4-8.2) Albumin 2.8 g/dL (3.4-5.0) Albumin/Globulin Ratio 0.7 (1.0-1.7) O2 Saturation 97 % (92-99) Arterial Blood pH 7.43 (7.35-7.45) Arterial Blood pCO2 at Patient Temp 41 mmHg (35-46) Arterial Blood pO2 at Patient Temp 97 mmHg (85-108) Arterial Blood HCO3 26 mmol/L (21-28) Arterial Blood Base Excess 2 mmol/L (-3-3) FiO2 40 Laboratory Tests Test 03/03/19 04:15 White Blood Count 9.5 x10^3/uL (4.0-11.0) Red Blood Count 4.00 x10^6/uL (4.30-5.70) Hemoglobin 11.8 g/dL (13.0-17.5) Hematocrit 35.0 % (39.0-53.0) Mean Corpuscular Volume 87 fL (79-100) Mean Corpuscular Hemoglobin 30 pg (25-35) Mean Corpuscular Hemoglobin Concent 34 g/dL (31-37) Red Cell Distribution Width 13.7 % (11.5-14.5) Platelet Count 283 x10^3/uL (140-400) Neutrophils (%) (Auto) 66 % (31-73) Lymphocytes (%) (Auto) 25 % (24-48) Monocytes (%) (Auto) 7 % (0-9) Eosinophils (%) (Auto) 1 % (0-3) Basophils (%) (Auto) 1 % (0-3) Neutrophils # (Auto) 6.3 x10^3uL (1.8-7.7) Lymphocytes # (Auto) 2.4 x10^3/uL (1.0-4.8) Monocytes # (Auto) 0.7 x10^3/uL (0.0-1.1) Eosinophils # (Auto) 0.1 x10^3/uL (0.0-0.7) Basophils # (Auto) 0.1 x10^3/uL (0.0-0.2) Sodium Level 140 mmol/L (136-145) Potassium Level 4.1 mmol/L (3.5-5.1) Chloride Level 104 mmol/L (98-107) Carbon Dioxide Level 27 mmol/L (21-32) Anion Gap 9 (6-14) Blood Urea Nitrogen 12 mg/dL (8-26) Creatinine 0.6 mg/dL (0.7-1.3) Estimated GFR (Cockcroft-Gault) 165.5 Glucose Level 97 mg/dL (70-99) Calcium Level 8.8 mg/dL (8.5-10.1) Medications Current Medications Propofol 100 ml @ As Directed STK-MED ONCE IV ; Start 02/27/19 at 07:28; Stop 02/27/19 at 07:29; Status DC Midazolam HCl 100 ml @ 5 mls/hr CONT PRN IV SEE I/O RECORD Last administered on 03/01/19at 11:00; Start 02/27/19 at 07:30; Stop 03/02/19 at 10:45; Status DC Propofol 100 ml @ 0 mls/hr CONT PRN IV SEE I/O RECORD Last administered on 03/02/19at 02:29; Start 02/27/19 at 07:30; Stop 03/02/19 at 10:45; Status DC Doxycycline Hyclate 100 mg/ Dextrose 100 ml @ 50 mls/hr Q12HR IV ; Start 02/27/19 at 09:00; Stop 02/27/19 at 09:36; Status DC Piperacillin Sod/ Tazobactam Sod 3.375 gm/Sodium Chloride 50 ml @ 100 mls/hr Q6HRS IV ; Start 02/27/19 at 08:00; Stop 02/27/19 at 08:54; Status DC Sodium Chloride 1,000 ml @ 2,130 mls/hr Q29M IV Last administered on 02/27/19at 09:36; Start 02/27/19 at 07:24; Stop 02/27/19 at 08:24; Status DC Norepinephrine Bitartrate 250 ml @ 0 mls/hr CONT PRN IV SEE I/O RECORD; Start 02/27/19 at 07:30; Stop 03/02/19 at 10:45; Status DC Ceftriaxone Sodium (Rocephin) 2 gm Q24H IVP ; Start 02/27/19 at 09:00; Stop 02/27/19 at 09:00; Status DC Vancomycin HCl 1.5 gm/Sodium Chloride 500 ml @ 250 mls/hr Q12H IV ; Start 02/27/19 at 08:30; Stop 02/27/19 at 08:56; Status DC Ceftriaxone Sodium (Rocephin) 2 gm Q24H IVP ; Start 02/27/19 at 21:00; Stop 02/27/19 at 21:00; Status DC Vancomycin HCl (Vanco Per Pharmacy) 1 each PRN DAILY PRN MC SEE COMMENTS Last administered on 03/03/19at 10:24; Start 02/27/19 at 08:45 Vancomycin HCl 750 mg/Sodium Chloride 250 ml @ 250 mls/hr 1X ONCE IV Last administered on 02/27/19at 09:45; Start 02/27/19 at 09:30; Stop 02/27/19 at 10:29; Status DC Ceftriaxone Sodium (Rocephin) 1 gm 1X ONCE IVP Last administered on 02/27/19at 09:38; Start 02/27/19 at 09:00; Stop 02/27/19 at 09:01; Status DC Acyclovir Sodium 650 mg/Dextrose 113 ml @ 113 mls/hr Q8HRS IV Last administered on 02/28/19at 06:00; Start 02/27/19 at 10:00; Stop 02/28/19 at 09:26; Status DC Vancomycin HCl 1 gm/Sodium Chloride 250 ml @ 250 mls/hr Q8H IV Last administered on 02/28/19at 00:42; Start 02/27/19 at 17:00; Stop 02/28/19 at 09:36; Status DC Vancomycin HCl (Vancomycin Trough Level) 1 each 1X ONCE MC Last administered on 02/28/19at 08:30; Start 02/28/19 at 08:30; Stop 02/28/19 at 08:31; Status DC Ondansetron HCl (Zofran) 4 mg PRN Q6HRS PRN IV NAUSEA/VOMITING Last administered on 03/02/19at 18:24; Start 02/27/19 at 11:00 Famotidine (Pepcid Vial) 20 mg BID IVP Last administered on 03/03/19at 09:00; Start 02/27/19 at 21:00 Amino Acids/ Glycerin/ Electrolytes 1,000 ml @ 80 mls/hr [id number] IV Last administered on 02/28/19at 01:21; Start 02/27/19 at 11:00; Stop 02/28/19 at 15:43; Status DC Ceftriaxone Sodium (Rocephin) 2 gm Q12HR IVP Last administered on 03/03/19at 10:26; Start 02/27/19 at 21:00 Lansoprazole (Prevacid) 30 mg 1X ONCE FT Last administered on 02/27/19at 13:52; Start 02/27/19 at 13:45; Stop 02/27/19 at 13:46; Status DC Acetaminophen (Tylenol) 1,000 mg PRN Q6HRS PRN PO FEVER Last administered on 02/27/19at 15:40; Start 02/27/19 at 15:45 Fentanyl Citrate 30 ml @ 0 mls/hr CONT PRN IV SEE PROTOCOL; Start 02/28/19 at 06:30; Stop 02/28/19 at 09:29; Status DC Dexmedetomidine HCl 200 mcg/ Sodium Chloride 50 ml @ 0 mls/hr CONT PRN IV PER PROTOCOL Last administered on 02/28/19at 09:43; Start 02/28/19 at 08:30; Stop 03/02/19 at 10:45; Status DC Sodium Chloride 500 ml @ 500 mls/hr 1X PRN PRN IV SEE COMMENTS; Start 02/28/19 at 08:30; Stop 03/02/19 at 10:45; Status DC Atropine Sulfate (ATROPINE 0.5mg SYRINGE) 0.5 mg PRN Q5MIN PRN IV SEE COMMENTS; Start 02/28/19 at 08:30; Stop 03/02/19 at 10:45; Status DC Enoxaparin Sodium (Lovenox 40mg Syringe) 40 mg Q24H SQ Last administered on 03/03/19at 10:21; Start 02/28/19 at 10:00 Vancomycin HCl 1.5 gm/Sodium Chloride 500 ml @ 250 mls/hr Q8H IV Last administered on 03/03/19at 10:33; Start 02/28/19 at 10:00 Potassium Chloride/Water 100 ml @ 100 mls/hr Q1H IV Last administered on 02/28/19at 15:15; Start 02/28/19 at 11:00; Stop 02/28/19 at 14:59; Status DC Non-Formulary Medication 1 ea BID SL Last administered on 03/03/19at 10:26; Start 02/28/19 at 17:00 Albuterol/ Ipratropium (Duoneb) 3 ml RTQID NEB Last administered on 03/03/19at 12:29; Start 03/01/19 at 10:30 Acetaminophen (Tylenol) 650 mg PRN Q6HRS PRN PEG MILD PAIN / TEMP; Start 03/02/19 at 09:15 Lorazepam (Ativan Inj) 1 mg PRN Q4HRS PRN IV ANXIETY / AGITATION; Start 03/02/19 at 22:00; Stop 03/02/19 at 22:16; Status DC Lorazepam (Ativan Inj) 2 mg PRN Q4HRS PRN IV ANXIETY / AGITATION; Start 03/02/19 at 22:30 Morphine Sulfate (Morphine Sulfate) 2 mg PRN Q2HR PRN IV PAIN; Start 03/02/19 at 22:15 Haloperidol Lactate (Haldol Inj) 5 mg PRN Q6HRS PRN IVP AGITATION, 2ND CHOICE; Start 03/02/19 at 22:15 Active Scripts Active Reported Suboxone 8 Mg-2 Mg Sl Film (Buprenorphine Hcl/Naloxone Hcl) 1 Each Film 1 Strip SL BID PRN Vitals/I & O Vital Sign - Last 24 Hours 03/02/19 03/02/19 03/02/19 03/02/19 15:59 16:00 18:00 19:00 Pulse 80 76 Resp 14 19 B/P (MAP) 135/66 (89) 111/63 (79) Pulse Ox 99 96 O2 Delivery Room Air Nasal Cannula Room Air Room Air O2 Flow Rate 3.0 03/02/19 03/02/19 03/02/19 03/02/19 19:39 20:00 20:00 21:00 Temp 99.0 99.0 Pulse 94 80 Resp 21 23 B/P (MAP) 126/67 (86) 127/73 (91) Pulse Ox 94 96 93 O2 Delivery Room Air Room Air Room Air Room Air 03/02/19 03/02/19 03/03/19 03/03/19 22:00 23:00 00:00 00:00 Temp 98.5 98.5 Pulse 76 68 60 Resp 19 17 16 B/P (MAP) 116/60 (78) 124/69 (87) 120/66 (84) Pulse Ox 100 92 96 O2 Delivery Room Air Room Air Room Air Room Air 03/03/19 03/03/19 03/03/19 03/03/19 01:00 02:00 03:00 04:00 Pulse 63 58 64 Resp 17 18 15 B/P (MAP) 121/67 (85) 119/62 (81) 120/62 (81) Pulse Ox 95 96 94 O2 Delivery Room Air Room Air Room Air Room Air 03/03/19 03/03/19 03/03/19 03/03/19 04:00 05:00 06:00 07:00 Temp 98.4 98.4 Pulse 54 55 55 54 Resp 17 12 17 B/P (MAP) 126/65 (85) 119/62 (81) 127/70 (89) 123/65 (84) Pulse Ox 94 91 97 97 O2 Delivery Room Air Room Air Room Air Room Air 03/03/19 03/03/19 03/03/19 03/03/19 08:00 08:00 08:14 09:00 Temp 98.5 98.5 Pulse 52 86 Resp 16 19 B/P (MAP) 130/69 (89) Pulse Ox 94 95 97 O2 Delivery Room Air Room Air Room Air Room Air 03/03/19 03/03/19 12:00 12:29 Pulse Ox 96 O2 Delivery Room Air Room Air Intake and Output 03/02/19 03/02/19 03/03/19 15:00 23:00 07:00 Intake Total 625 ml 1000 ml Output Total 825 ml 755 ml 615 ml Balance -200 ml 245 ml -615 ml Nutrition Consultation Dietary Evaluation: Recommendations by RD: Increase Calorie Intake Comments: REC advance diet as able within 24-72 hrs pending [employer] eval/recemmendations to goal diet regular Expected Outcomes/Goals: Nutrition support to meet >75% est nutrition needs while pt remains intubated - goal complete, new goal established New goal 03/02: Diet advancement s/p extubation Interpretation of weight loss: >5% in 1 month Malnutrition Findings: Food and Nutrition Intake (Sev: <50% est energy req 5days Weight Status: Appropriate NOEL FRAZIER MD Mar 03, 2019 13:18
[2019-03-03] MEDS ORDERED: ALPRAZolam 0.25 MG TABLET PO PRN (13:30)
[2019-03-03] MEDS ORDERED: ZOLPIDEM 5 MG TABLET. PO PRN (13:30)
[2019-03-03] MEDS ORDERED: ACETAMINOPHEN 500 MG TABLET PO PRN (13:30)
[2019-03-03] MEDS ORDERED: ACETAMINOPHEN/CODEINE 300/30MG TABLET. PO PRN (13:30)
--- NOTE | 2019-03-03 15:40 | NUR ---
SS following up with discharge planning. PT/OT currently recommending home with assistance. No discharge needs noted at this time. SS will continue to follow for discharge planning.
--- NOTE | 2019-03-03 16:20 | NUR ---
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 Continue on flow sheets
[2019-03-03] MEDS ORDERED: MIDAZOLAM 100mg/100ml NS BAG 100 ML IV PRN (16:45)
[2019-03-04] MEDS: VANCOMYCIN 1.5 GM in IV NORMAL SALINE 500ML BAG 500 ML IV SCH ×2 (02:02→10:30)
[2019-03-04 03:24] VITALS: BP 125/85
[2019-03-04 07:00] VITALS: BP 131/64
[2019-03-04] MEDS: IPRATRPIUM/ALBUTEROL 0.5/2.5MG 3 ML NEBU. NEB SCH ×2 (07:41→12:37)
--- NOTE | 2019-03-04 09:25 | PDOC ---
Infectious Disease Note Subjective: Subjective pt without complaints No fevers,headache neck stiffness , nausea and vomiting ,diarrhea wants to go home ROS: ROS Negative except for above. Vital Signs: Vital Signs Vital Signs Date Time Temp Pulse Resp B/P (MAP) Pulse Ox O2 Delivery O2 Flow Rate FiO2 03/04/19 07:41 96 Room Air 03/04/19 07:00 98.2 70 16 131/64 (86) 98.2 03/03/19 15:46 2.0 Physical Exam: PHYSICAL EXAM GENERAL: alert awake in nad, comfortable HEENT: Pupils equal, no petechia NECK: Supple LUNGS: Clear. HEART: S1, S2 regular. ABDOMEN: BS active, soft, no guarding : Indwelling Mcintosh in place EXTREMITIES: No edema or cyanosis. SCDs in place SKIN: Nonblanching fine macular -type rash on the upper torso/neck and face - slowly fading NEUROLOGIC: axox3 nonfocal PIVs Medications: Inpatient Meds: Current Medications Medications (Trade) Dose Ordered Sig/Parul Start Time Stop Time Status Last Admin Dose Admin Acetaminophen (Tylenol) 500 mg PRN Q6HRS PRN 03/03/19 13:30 Acetaminophen/ Codeine Phosphate (Tylenol #3) 1 tab PRN Q6HRS PRN 03/03/19 13:30 Acyclovir Sodium 650 mg/Dextrose 113 ml @ 113 mls/hr Q8HRS 02/27/19 10:00 02/28/19 09:26 DC 02/28/19 06:00 113 MLS/HR Albuterol/ Ipratropium (Duoneb) 3 ml RTQID 03/01/19 10:30 03/04/19 07:41 3 ML Alprazolam (Xanax) 0.25 mg PRN Q8HRS PRN 03/03/19 13:30 Amino Acids/ Glycerin/ Electrolytes 1,000 ml @ 80 mls/hr [id number] 02/27/19 11:00 02/28/19 15:43 DC 02/28/19 01:21 80 MLS/HR Atropine Sulfate (ATROPINE 0.5mg SYRINGE) 0.5 mg PRN Q5MIN PRN 02/28/19 08:30 03/02/19 10:45 DC Ceftriaxone Sodium (Rocephin) 2 gm Q12HR 02/27/19 21:00 03/03/19 21:00 2 GM Dexmedetomidine HCl 200 mcg/ Sodium Chloride 50 ml @ 0 mls/hr CONT PRN 02/28/19 08:30 03/02/19 10:45 DC 02/28/19 09:43 0.4 MLS/HR Doxycycline Hyclate 100 mg/ Dextrose 100 ml @ 50 mls/hr Q12HR 02/27/19 09:00 02/27/19 09:36 DC Enoxaparin Sodium (Lovenox 40mg Syringe) 40 mg Q24H 02/28/19 10:00 03/03/19 13:19 DC 03/03/19 10:21 40 MG Famotidine (Pepcid Vial) 20 mg BID 02/27/19 21:00 03/03/19 13:19 DC 03/03/19 09:00 20 MG Fentanyl Citrate 30 ml @ 0 mls/hr CONT PRN 03/03/19 16:45 Cancel Haloperidol Lactate (Haldol Inj) 5 mg PRN Q6HRS PRN 03/02/19 22:15 Lansoprazole (Prevacid) 30 mg 1X ONCE 02/27/19 13:45 02/27/19 13:46 DC 02/27/19 13:52 30 MG Lorazepam (Ativan Inj) 2 mg PRN Q4HRS PRN 03/02/19 22:30 03/03/19 13:19 DC Midazolam HCl 100 ml @ 5 mls/hr CONT PRN 03/03/19 16:45 03/03/19 16:45 DC Morphine Sulfate (Morphine Sulfate) 2 mg PRN Q2HR PRN 03/02/19 22:15 03/03/19 16:44 DC Non-Formulary Medication 1 ea BID 02/28/19 17:00 03/03/19 21:00 1 EA Norepinephrine Bitartrate 250 ml @ 0 mls/hr CONT PRN 02/27/19 07:30 03/02/19 10:45 DC Ondansetron HCl (Zofran) 4 mg PRN Q6HRS PRN 02/27/19 11:00 03/02/19 18:24 4 MG Piperacillin Sod/ Tazobactam Sod 3.375 gm/Sodium Chloride 50 ml @ 100 mls/hr Q6HRS 02/27/19 08:00 02/27/19 08:54 DC Potassium Chloride/Water 100 ml @ 100 mls/hr Q1H 02/28/19 11:00 02/28/19 14:59 DC 02/28/19 15:15 100 MLS/HR Propofol 100 ml @ 0 mls/hr CONT PRN 02/27/19 07:30 03/02/19 10:45 DC 03/02/19 02:29 2.364 MLS/HR Sodium Chloride 500 ml @ 500 mls/hr 1X PRN PRN 02/28/19 08:30 03/02/19 10:45 DC Vancomycin HCl (Vanco Per Pharmacy) 1 each PRN DAILY PRN 02/27/19 08:45 03/03/19 10:24 1 EACH Vancomycin HCl (Vancomycin Trough Level) 1 each 1X ONCE 02/28/19 08:30 02/28/19 08:31 DC 02/28/19 08:30 1 EACH Vancomycin HCl 1.5 gm/Sodium Chloride 500 ml @ 250 mls/hr Q8H 02/28/19 10:00 03/04/19 02:02 250 MLS/HR Vancomycin HCl 750 mg/Sodium Chloride 250 ml @ 250 mls/hr 1X ONCE 02/27/19 09:30 02/27/19 10:29 DC 02/27/19 09:45 250 MLS/HR Vancomycin HCl 1 gm/Sodium Chloride 250 ml @ 250 mls/hr Q8H 02/27/19 17:00 02/28/19 09:36 DC 02/28/19 00:42 250 MLS/HR Zolpidem Tartrate (Ambien) 5 mg PRN QHS PRN 03/03/19 13:30 Labs: Micro Micro CSF: ([facility] 02/27) Neg so far Objective: Assessment: Meningitis. - LP02/27:: CSF WBC 318, glucose 62, T.protein 164 protein and RBC 50. -GPC gram stain. ID/susceptibilities pending CSF Cults neg so far - had been on Augmentin so could be partially treated and skewing results of the CSF Fever resolved Leukocytosis - improved New onset seizure History of IV drug use. Acute encephalopathy., confused and disoriented prior to admission,now resolved Lactic acid is secondary to the seizure, less likely to be septic. Rash involving upper torso/neck and face, fading per family Pulm infiltrates ? aspiration Plan: Plan of Care Pt should stay for one more day but insisting to go home for family needs dc home on augmentin and doxycycline If symptoms worsen seek immediate medical care D/w nursing SHIRA WALKER MD Mar 04, 2019 09:25
[2019-03-04] MEDS: cefTRIAXone IV Push 2 GM VIAL. IVP SCH (10:29)
--- NOTE | 2019-03-04 10:45 | PDOC ---
PULMONARY PROGRESS NOTES Subjective NO RESP COMPLAINTS EXTUBATED 03/02 Vitals Vital Signs Date Time Temp Pulse Resp B/P (MAP) Pulse Ox O2 Delivery O2 Flow Rate FiO2 03/04/19 07:41 96 Room Air 03/04/19 07:00 98.2 70 16 131/64 (86) 98.2 03/03/19 15:46 2.0 Lungs: Crackles Cardiovascular: S1, S2 Abdomen: Soft, Non-tender, Other (no mass) Neuro Exam: Alert Extremities: No Edema Skin: Warm Labs Laboratory Tests Test 03/03/19 04:15 White Blood Count 9.5 x10^3/uL (4.0-11.0) Red Blood Count 4.00 x10^6/uL (4.30-5.70) Hemoglobin 11.8 g/dL (13.0-17.5) Hematocrit 35.0 % (39.0-53.0) Mean Corpuscular Volume 87 fL (79-100) Mean Corpuscular Hemoglobin 30 pg (25-35) Mean Corpuscular Hemoglobin Concent 34 g/dL (31-37) Red Cell Distribution Width 13.7 % (11.5-14.5) Platelet Count 283 x10^3/uL (140-400) Neutrophils (%) (Auto) 66 % (31-73) Lymphocytes (%) (Auto) 25 % (24-48) Monocytes (%) (Auto) 7 % (0-9) Eosinophils (%) (Auto) 1 % (0-3) Basophils (%) (Auto) 1 % (0-3) Neutrophils # (Auto) 6.3 x10^3uL (1.8-7.7) Lymphocytes # (Auto) 2.4 x10^3/uL (1.0-4.8) Monocytes # (Auto) 0.7 x10^3/uL (0.0-1.1) Eosinophils # (Auto) 0.1 x10^3/uL (0.0-0.7) Basophils # (Auto) 0.1 x10^3/uL (0.0-0.2) Sodium Level 140 mmol/L (136-145) Potassium Level 4.1 mmol/L (3.5-5.1) Chloride Level 104 mmol/L (98-107) Carbon Dioxide Level 27 mmol/L (21-32) Anion Gap 9 (6-14) Blood Urea Nitrogen 12 mg/dL (8-26) Creatinine 0.6 mg/dL (0.7-1.3) Estimated GFR (Cockcroft-Gault) 165.5 Glucose Level 97 mg/dL (70-99) Calcium Level 8.8 mg/dL (8.5-10.1) Medications Active Scripts Medications Dose Route/Sig Max Daily Dose Days Date Category Suboxone 8 Mg-2 Mg Sl Film (Buprenorphine Hcl/Naloxone Hcl) 1 Each Film 1 Strip SL BID PRN 02/28/19 Reported Impression . IMPRESSION: 1. Acute hypoxemic respiratory failure, multifactorial. 2. Opiate dependent, presents with toxic metabolic encephalopathy. 3. Toxic metabolic encephalopathy. 4. bacterial meningitis/encephalitis, 5. History of depression and anxiety. 6. Chronic obstructive pulmonary disease. 7. Tobacco dependence. 8. abnl cxr, basilar atelectasis, small effusion, add BD Plan . RESP STATUS IS COMPENSATED EXTUBATED 03/02 FOLLOW ID REC DVT AND GI PROPH ADVANCE DIET PT ROXANN RENDON MD Mar 04, 2019 10:45
[2019-03-04 11:00] VITALS: BP 120/73
--- NOTE | 2019-03-04 12:54 | DS ---
DATE OF DISCHARGE: 03/04/2019 ADMISSION DIAGNOSIS: Meningitis. DISCHARGE DIAGNOSES: Resolving meningitis, history of IV drug abuse. CONSULTS: Infectious Disease. PROCEDURES: None. HOSPITAL COURSE: The patient is a pleasant middle-aged male, who presented with mental status change. He was noted to have infectious meningitis. He was admitted. We consulted Infectious Disease. He received IV antibiotics over the past few days. Today, Infectious Disease recommended he stay one more day, but he insisted on leaving for family reasons. We did leave a prescription for Augmentin. We plan to discharge this evening if okay with Infectious Disease. PHYSICAL EXAMINATION: The patient was seen and examined this morning. HEART: His heart tones were normal. LUNGS: Clear. NEUROLOGIC: He was alert and oriented, moving all extremities. No complaints. He was on the phone. EXTREMITIES: No edema. DISPOSITION: Home. ACTIVITY: As tolerated. DIET: Low sodium. MEDICATIONS: Augmentin 875 b.i.d. TOTAL TIME: 32 minutes. SERGIO JIANG DO DR: KAVITHA/jory JOB#: [id number] / [id number]
--- NOTE | 2019-03-04 16:30 | NUR ---
Discharge Note: WILDER ABEL Discharge instructions and discharge home medications reviewed with Patient and a copy given. All questions have been answered and understanding verbalized. The following instructions and handouts were given: Discharge Instructions, perscriptions Discontinued lines and drains: Peripheral IV removed, Catheter intact. Patient discharged to Home with Self-Care via Private Vehicle
== END 2019-03-04 16:15 | disposition home or self-care (01) | DRG 871 ==
LOC: 1 WEST ICU 05:49 → 5 NORTH 03-03 15:51
PROVIDERS: ADMIT Internal Medicine; ATTEND Internal Medicine
PROC: 5A1945Z Respiratory Ventilation, 24-96 Consecutive Hours (ICD-10-PCS; principal; 2019-02-27)
PROC: 0BH17EZ Insertion of Endotracheal Airway into Trachea, Via Natural or Artificial Opening (ICD-10-PCS; 2019-02-27)
DX: A41.9 Sepsis, unspecified organism (principal); G92 Toxic encephalopathy; J96.01 Acute respiratory failure with hypoxia; J96.02 Acute respiratory failure with hypercapnia; G04.90 Encephalitis and encephalomyelitis, unspecified; A87.9 Viral meningitis, unspecified; F11.20 Opioid dependence, uncomplicated; F19.239 Other psychoactive substance dependence with withdrawal, unspecified; J98.11 Atelectasis; T40.2X1A Poisoning by other opioids, accidental (unintentional), initial encounter; F32.9 Major depressive disorder, single episode, unspecified; F41.9 Anxiety disorder, unspecified; R65.20 Severe sepsis without septic shock; B19.20 Unspecified viral hepatitis C without hepatic coma; E87.6 Hypokalemia; F17.210 Nicotine dependence, cigarettes, uncomplicated; H55.00 Unspecified nystagmus; J44.9 Chronic obstructive pulmonary disease, unspecified; K08.89 Other specified disorders of teeth and supporting structures; Z82.49 Family history of ischemic heart disease and other diseases of the circulatory system
CPT/HCPCS: 36415; 36600; 71045; 74018; 80048; 80053; 80202; 82805; 83605; 83735; 84145; 85025; 87641; 94003; 94640; 94760; J0133; J0696; J1650; J2250; J2405; J2704; J3370; J3480; J3490; J7030; J7040; J7050; J7620; 92610; 97530; 97535

== ENCOUNTER 2019-05-07 11:10 | Day surgery (SDC) | payer OTHER ==
[~2019-05-07] VITALS: Ht 175.3 cm; Wt 61.5 kg
[~2019-05-07 11:10] MED LIST: ACETAMINOPHEN 500 MG TABLET PO PRN; BUPIVACAINE-EPI 0.25%-1:200000 MPF 30 ML VIAL. INJ ONE; BUPR1FIL5 SL; DEXAMETHASONE SOD PHOS 4 MG/ML VIAL ONE; HYDROmorphone 2 MG/ML VIAL IV PRN; IV RINGERS,LACTATED 1000ML 1,000 ML IV SCH; KETOROLAC 30 MG/ML INJ FOR OR. INJ ONE; LIDOCAINE 1% PF 2 ML VIAL. ID PRN; LIDOCAINE 2% PF 5 ML VIAL. ONE; MIDAZOLAM HCL/PF 2 MG/2 ML VIAL. ONE; MORPHINE SULFATE 2 MG/ML VIAL. IV PRN; MULT1TAB52 PO; ONDANSETRON PF 4 MG/2 ML VIAL. IV PRN; ONDANSETRON PF 4 MG/2 ML VIAL. ONE; POTA20TA82 PO; PROCHLORPERAZINE 10 MG/2 ML VIAL. IV PRN; PROPOFOL 20 ML IV ONE; SEVOFLURANE 31 TO 60 MINUTES. IH ONE; fentaNYL PF VIAL 100 MCG/2 ML VIAL IV PRN; fentaNYL PF VIAL 100 MCG/2 ML VIAL ONE
--- NOTE | 2019-05-07 12:37 | PDOC4 ---
Operative Note Operative Note Date: 05/07/2019 Preoperative diagnosis: Lymphadenopathy Postoperative diagnosis: Same Procedure: Left groin lymph node excisional biopsy Surgeon: Jack Specimen: Lymph node left groin Dictation: Patient is a 23-year-old male who couple months ago had meningitis was in the hospital and a coma for several days since that time he is improved but he has noticed several areas with lumps and bumps around his neck axilla and groin. Procedure of left groin biopsy of lymph node was explained to the patient detail risk benefits were also discussed including bleeding infection ultra- metastasis to this procedure also discussed with the patient is seemed to understand and gave both verbal and written consent to have the procedure performed. Patient was taken to the operating room placed in supine position general anesthesia was initiated once patient was sleep and intubated his left groin was prepped and draped usual sterile fashion using ChloraPrep and area o antonio the palpable mass in the left groin was injected with quarter percent Marcaine with epinephrine incision was made with 15 blade scalpel was carried down through the subcutaneous tissue using electrocautery divided hemostasis a palpable node was visualized and excised using electrocautery and sent to pathology as a fresh specimen. The wound was then closed in 2 layers a deep lay er running 3-0 Vicryl and skin was approximate for septic or Monocryl Mastisol Steri-Strips and island dressing were applied. Patient was awakened and excavated in the operating room taken to recovery in stable condition all sponge instrument needle counts listed as correct estimated blood loss less than 5 mL CHAPITO ARAGON MD May 07, 2019 12:37
--- NOTE | 2019-05-07 12:39 | DISCH ---
DISCHARGE INSTRUCTIONS Condition on Discharge Condition on Discharge: Stable Activity After Discharge Activity Instructions for Disc: Activity as tolerated Diet after Discharge Diet after Discharge: Regular Wound Incision Care Other wound/incision instructi: May shower in 24 hours Contacting the DRGe after DC Call your doctor for: If your condition worsens Follow-Up Follow up with: Dr. Aragon in 2 weeks CHAPITO ARAGON MD May 07, 2019 12:39
[2019-05-07] MEDS ORDERED: HYDR-3164 PO (12:52)
[2019-05-07] MEDS ORDERED: HYDROcodone/APAP 5/325MG 1 TAB TABLET PO ONE ×2 (13:00)
[2019-05-07 13:55] VITALS: BP 102/66
== END 2019-05-07 15:00 | disposition home or self-care (01) ==
LOC: SURG 11:10
PROVIDERS: ATTEND Surgery
DX: R59.1 Generalized enlarged lymph nodes (principal)
CPT/HCPCS: 38500; A7015; J0690; J1100; J1885; J2001; J2250; J2405; J2704; J3010; 88184; 88185